=== PATIENT | female | born 1945 | race Caucasian/White ===

== ENCOUNTER 2017-02-17 16:47 | Emergency (ER) | payer MEDICARE, BC ==
[2017-02-17 16:54] VITALS: BP 141/77
--- NOTE | 2017-02-17 17:09 | UC ---
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 she lost footing fell back and hit her head on concrete does not believe she had a LOC but--she did have a strike that caused her to see stars and has had ringing in her ears gait steady, neck not painful - History Of Current Complaint Chief Complaint: UCHeadInjury Stated Complaint: HEAD INJURY Time Seen by Provider: 02/17/17 17:02 Hx Obtained From: Patient ?: No Mechanism Of Injury: fall Onset/Duration: Sudden Onset Severity Currently: Moderate Severity Initially: Moderate Pain Intensity: 5 Pain Scale Used: 0-10 Numeric Character: Throbbing Aggravating Factor(s): Nothing Alleviating Factor(s): Nothing Associated Signs And Symptoms: Positive: Negative - Allergies/Home Medications Allergies/Adverse Reactions: Allergies Allergy/AdvReac Type Severity Reaction Status Date / Time ENVIRONMENTAL Allergy STUUFY Uncoded 04/04/15 10:32 NOSE, BURNING EYES PMH/Surg Hx/FS Hx/Imm Hx Previously Healthy: No Endocrine History: Hypothyroidism Cardiovascular History: Hypertension - Surgical History Surgical History: Yes Surgery Procedure, Year, and Place: THYROIDECTOMY, , [facility] [place] 2008, [facility] [place] [facility] GREAT TOE SURGERIES, , [facility], [place] CAT[facility]ACTS, 03/2011, [facility] [place] Cholecystectomy 2012 - Family History Known Family History: Positive: None - Social History Occupation: Retired Lives: With Family Alcohol Use: Occasionally Substance Use Type: None Smoking Status (MU): Never Smoked Tobacco - Immunization History Most Recent Influenza Vaccination: Review of Systems Constitutional: Negative Skin: Negative Eyes: Negative ENT: Ear Ache - ringing Respiratory: Negative Cardiovascular: Negative Gastrointestinal: Negative Genitourinary: Negative Motor: Negative Neurovascular: Negative Musculoskeletal: Negative Neurological: Negative, Other - occipital hematoma Psychological: Negative Is Patient Immunocompromised?: No All Other Systems Reviewed And Are Negative: Yes Physical Exam Triage Information Reviewed: Yes Appearance: Well-Appearing, No Pain Distress, Thin Vital Signs: Initial Vital Signs Temp 97.7 F 02/17/17 16:49 Pulse 77 02/17/17 16:49 Resp 18 02/17/17 16:49 BP 141/77 02/17/17 16:49 Pulse Ox 98 02/17/17 16:49 Vital Signs Reviewed: Yes Eye Exam: Normal Eyes: Positive: Conjunctiva Clear, Other: - perrla ENT Exam: Normal ENT: Positive: Normal ENT inspection, Hearing grossly normal, Pharynx normal, TMs normal, Uvula midline. Negative: Nasal congestion, Tonsillar swelling, Tonsillar exudate, Trismus, Muffled voice, Hoarse voice, Sinus tenderness Dental Exam: Normal Neck exam: Normal Neck: Positive: Supple, Nontender, No Lymphadenopathy Respiratory Exam: Normal Respiratory: Positive: Chest non-tender, Lungs clear, Normal breath sounds, No respiratory distress, No accessory muscle use Cardiovascular Exam: Normal Cardiovascular: Positive: RRR, No Murmur, Pulses Normal, Brisk Capillary Refill Musculoskeletal Exam: Normal Musculoskeletal: Positive: Strength Intact, ROM Intact, No Edema Neurological Exam: Normal Neurological: Positive: Alert, Muscle Tone Normal Psychological Exam: Normal Skin Exam: Normal Head Injury Course/Dx - Course Course Of Treatment: transfer to [facility] [place] for higher level of care (no CT avaiable) - Differential Dx/Diagnosis Provider Diagnoses: Head injury,occiputal hematoma Discharge - Discharge Plan Condition: Stable Disposition: HOME Patient Education Materials: Head Injury (ED) Referrals: Michelle Norrsi NP [Primary Care Provider] - Additional Instructions: 1. Please report directly to the emergency department for a higher level of care than what is available at the urgent care
== END 2017-02-17 17:15 | disposition home or self-care (01) ==
LOC: UCEAST 16:47
DX: S09.90XA Unspecified injury of head, initial encounter (principal); S00.03XA Contusion of scalp, initial encounter; W18.39XA Other fall on same level, initial encounter; Y93.89 Activity, other specified; Y92.9 Unspecified place or not applicable; Y99.9 Unspecified external cause status
CPT/HCPCS: 99212; G0463

== ENCOUNTER 2017-02-17 17:29 | Emergency (ER) | payer MEDICARE, BC ==
--- NOTE | 2017-02-17 18:53 | RAD ---
INDICATION: Trauma to posterior occiput COMPARISON: None. TECHNIQUE: Contiguous axial sections of the brain were obtained from the skull base to the vertex without contrast. FINDINGS: The ventricles, cisterns and sulci are within normal limits. The gurrola-white matter differentiation is adequately maintained and there is no sulcal effacement. No significant focal abnormality or mass effect is present. There is no evidence for intracranial hemorrhage. There is induration measuring 3 mm in thickness immediately adjacent to the external occipital calvarium. No significant focal osseous abnormality is present. The visualized portion of the paranasal sinuses and mastoid air cells appear clear. IMPRESSION: There is a small subcutaneous hematoma overlying the midline occipital bone without underlying calvarial fracture or intracranial hemorrhage.
[2017-02-17 19:51] VITALS: BP 141/80
--- NOTE | 2017-02-17 21:37 | ED ---
Davis Dela Cruz SooYoung, scribed for Payam Ybarra MD on 02/17/17 at 1816 . 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 Pt was pulling down her garage door when she fell backwards, and hit her head on the concrete. Pt "saw stars" when she hit her head. Associated sx: neck pain, mild posterior AZUL. Denies: nausea. 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 Mechanism Of Injury: Fall From A Standing Position Onset/Duration: Still Present Onset of Pain: Immediate Severity Currently: Mild Severity Initially: Moderate Pain Intensity: 0 Pain Scale Used: 0-10 Numeric Associated Signs And Symptoms: Neck Pain, Headache - Allergies/Home Medications Allergies/Adverse Reactions: Allergies Allergy/AdvReac Type Severity Reaction Status Date / Time ENVIRONMENTAL Allergy STUUFY Uncoded 04/04/15 10:32 NOSE, BURNING EYES PMH/Surg Hx/FS Hx/Imm Hx Previously Healthy: No Endocrine/Hematology History: Reports: Hx Thyroid Disease Denies: Hx Diabetes Cardiovascular History: Reports: Hx Hypertension Denies: Hx Pacemaker/ICD, Other Cardiovascular Problems/Disorders Respiratory History: Denies: Hx Asthma, Hx Chronic Obstructive Pulmonary Disease (COPD), Other Respiratory Problems/Disorders GI History: Reports: Hx Gastroesophageal Reflux Disease - ON MEDS Denies: Hx Ulcer History: Denies: Hx Renal Disease, Other Problems/Disorders Musculoskeletal History: Reports: 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 Denies: Other Musculoskeletal History Sensory History: Reports: Hx Cataracts - REMOVED, Hx Contacts or Glasses - GLASSES Denies: Hx Hearing Aid Opthamlomology History: Reports: Hx Cataracts - REMOVED, Hx Contacts or Glasses - GLASSES Neurological History: Denies: Other Neuro Impairments/Disorders Psychiatric History: Denies: Hx Panic Disorder - Cancer History Hx Chemotherapy: No Hx Radiation Therapy: No - Surgical History Surgery Procedure, Year, and Place: THYROIDECTOMY, , [facility] [place], [facility] [place], , [facility], [place] [facility], 03/2011, [facility] [place] 2012 Hx Anesthesia Reactions: No Infectious Disease History: No Infectious Disease History: Denies: Hx Hepatitis, Hx Human Immunodeficiency Virus (HIV), History Other Infectious Disease, Traveled Outside the [place] in Last 30 Days - Family History Known Family History: Positive: Diabetes Negative: Cardiac Disease, Hypertension - Social History Occupation: Retired Lives: With Family Alcohol Use: Occasionally Hx Substance Use: No Substance Use Type: Reports: None Hx Tobacco Use: No Smoking Status (MU): Never Smoked Tobacco Review of Systems Negative: Nausea Positive: Other - pos: neck pain Positive: Headache All Other Systems Reviewed And Are Negative: Yes Physical Exam Vital Signs On Initial Exam: Initial Vitals Temp Pulse Resp BP Pulse Ox 97.3 F 72 17 158/77 99 02/17/17 17:29 02/17/17 17:29 02/17/17 17:29 02/17/17 17:29 02/17/17 17:29 - [place] Coma Scale Coma Scale Total: 15 Diagnostics - Vital Signs Vital Signs Temp Pulse Resp BP Pulse Ox 02/17/17 17:29 97.3 F 72 17 158/77 99 - Laboratory Lab Statement: Any lab studies that have been ordered have been reviewed, and results considered in the medical decision making process. - CT BRAIN CT CT Interpretation: Positive (See Comments) - IMPRESSION: There is a small subcutaneous hematoma overlying the midline occipital bone without underlying calvarial fracture or intracranial hemorrhage. ED physician has reviewed this radiology report and agrees. CT Interpretation Completed By: Radiologist Head Injury Course/Dx Course Of Treatment: Ms. Falcon was minimally symptomatic after a head injury but is no ASA and over [address] was obtained and negative. - Diagnoses Provider Diagnoses: Head injury Discharge - Discharge Plan Condition: Stable Disposition: HOME Patient Education Materials: Head Injury (ED) Referrals: Michelle Norris NP [Primary Care Provider] - Additional Instructions: Please return to ED if you experience new or worsening symptoms. The documentation as recorded by the Davis jon SooYoung accurately reflects the service I personally performed and the decisions made by , Payam Ybarra MD.
== END 2017-02-17 19:51 | disposition home or self-care (01) ==
LOC: ED 17:29
DX: S09.90XA Unspecified injury of head, initial encounter (principal); K21.9 Gastro-esophageal reflux disease without esophagitis; W19.XXXA Unspecified fall, initial encounter; Y93.89 Activity, other specified; Y92.9 Unspecified place or not applicable; I10 Essential (primary) hypertension
CPT/HCPCS: 70450; 99282

== ENCOUNTER 2017-03-15 17:52 | Emergency (ER) | payer MEDICARE, BC ==
--- NOTE | 2017-03-15 18:05 | UC ---
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 ) About 5 PM felt a little funny Went to kitchen for water had some trouble ambulating slumped again refrigerator door and fell to floor with LOC awoke on floor crawled back to living room an pulled herself into chair was profusely diaphoretic no CP,SOB, Palpitations now much improved mild AZUL still feels dizzy if she tries to stand - History Of Current Complaint Stated Complaint: FAINTED Time Seen by Provider: 03/15/17 17:58 Hx Obtained From: Patient Onset/Duration: Sudden Onset Activity At Onset: At Rest Timing: Constant Frequency: Episodes x___ - 1, Episodes Lasting ____ (in Mins/Days/Weeks/Years) - unknown Context: Unwitnessed Associated Head Trauma: No Pain Intensity: 2 Pain Scale Used: 0-10 Numeric Aggravating Factor(s): Position Change Alleviating Factor(s): Nothing, Other - supine Associated Signs And Symptoms: Positive: Diaphoresis, Head Trauma (Remote) - about 3 week ago - Allergies/Home Medications Allergies/Adverse Reactions: Allergies Allergy/AdvReac Type Severity Reaction Status Date / Time ENVIRONMENTAL Allergy STUUFY Uncoded 03/15/17 18:06 NOSE, BURNING EYES PMH/Surg Hx/FS Hx/Imm Hx Previously Healthy: Yes Cardiovascular History: Hypertension - Surgical History Surgical History: Yes Surgery Procedure, Year, and Place: THYROIDECTOMY, , [facility], [place] 2008, [facility] [place] [facility] GREAT TOE SURGERIES, , [facility], [facility] CAT[facility]ACT[facility], 03/2011, [facility] [place] Cholecystectomy 2012 - Family History Known Family History: Positive: None, Diabetes Negative: Cardiac Disease, Hypertension - Social History Alcohol Use: Occasionally Substance Use Type: None Smoking Status (MU): Never Smoked Tobacco - Immunization History Most Recent Influenza Vaccination: Review of Systems Constitutional: Negative Skin: Negative Eyes: Negative ENT: Negative Respiratory: Negative Cardiovascular: Negative Gastrointestinal: Negative Genitourinary: Negative Motor: Negative Neurovascular: Negative Musculoskeletal: Negative Neurological: Weakness Psychological: Negative Is Patient Immunocompromised?: No All Other Systems Reviewed And Are Negative: Yes Physical Exam Triage Information Reviewed: Yes Appearance: Well-Appearing, No Pain Distress, Well-Nourished Vital Signs Reviewed: Yes Eyes: Positive: Conjunctiva Clear ENT: Positive: Hearing grossly normal. Negative: Nasal congestion, Nasal drainage, Trismus, Muffled voice, Hoarse voice Neck: Positive: Nontender, Other: - no bruits Respiratory: Positive: Lungs clear, Normal breath sounds, No respiratory distress, No accessory muscle use Cardiovascular: Positive: RRR, No Murmur Abdomen Description: Positive: No Organomegaly, Soft, Bruit Musculoskeletal: Positive: ROM Intact, No Edema Neurological: Positive: Alert, Muscle Tone Normal Psychological Exam: Normal Skin Exam: Normal Diagnostics - EKG Cardiac Rate: NL Cardiac Rhythm: Sinus: Normal Ectopy: None ST Segment: Normal Syncope Course/Dx - Course Course Of Treatment: d/w Sima Tam. to [facility] ED via EMS - Differential Dx/Diagnosis Provider Diagnoses: syncopal episode Discharge - Discharge Plan Condition: Stable Disposition: [facility] Referrals: Michelle Norris NP [Primary Care Provider] -
[2017-03-15 18:06] VITALS: BP 120/68
== END 2017-03-15 19:02 | disposition short-term general hospital (02) ==
LOC: UCEAST 17:52
DX: R55 Syncope and collapse (principal); I10 Essential (primary) hypertension
CPT/HCPCS: 93005; 99213; G0463

== ENCOUNTER 2017-03-15 19:18 | Inpatient (IN) | payer MEDICARE, BC ==
--- NOTE | 2017-03-15 20:25 | RAD ---
HISTORY: Syncope COMPARISONS: None VIEWS: 1: frontal portable view of the chest at 8:11 PM FINDINGS: LINES AND TUBES: None. CARDIOMEDIASTINAL SILHOUETTE: The cardiomediastinal silhouette is normal for portable technique. PLEURA: The costophrenic angles are sharp. No pleural abnormalities are noted. LUNG PARENCHYMA: The lungs are clear. ABDOMEN: The upper abdomen is clear. There is no subphrenic gas. BONES AND SOFT TISSUES: No bone or soft tissue abnormalities are noted. IMPRESSION: NO ACTIVE CARDIOPULMONARY DISEASE.
[2017-03-15 20:32] LABS: Hematocrit 29 % (35-47); Hemoglobin 9.7 g/dl (12.0-16.0); Mean Corpuscular HGB Conc 34 g/dl (31-36); Mean Corpuscular Hemoglobin 33 pg (27-31); Mean Corpuscular Volume 97 fL (80-97); Mean Platelet Volume 10 um3 (7.4-10.4); Red Blood Count 2.95 10^6/ul (4.0-5.4); Red Cell Distribution Width 14 % (10.5-15); White Blood Count 7.7 10^3/ul (3.5-10.8)
[2017-03-15 20:48] LABS: ALT 15 U/L (7-52); AST 23 U/L (13-39); Albumin 3.7 g/dL (3.2-5.2); Alkaline Phosphatase 29 U/L (34-104); Anion Gap 4 mmol/L (2-11); BUN/Creatinine Ratio 80.5 (8-20); Blood Urea Nitrogen 62 mg/dL (6-24); CO2 Carbon Dioxide 27 mmol/L (22-32); Calcium 8.4 mg/dL (8.6-10.3); Chloride 103 mmol/L (101-111); EGFR African American 94.8 (>60); EGFR Non-African American 73.7 (>60); Globulin 2.1 g/dL (2-4); Glucose 102 mg/dL (70-100); Potassium 3.6 mmol/L (3.5-5.0); Sodium 134 mmol/L (133-145); Total Protein 5.8 g/dL (6.4-8.9)
[2017-03-15 20:49] LABS: Troponin I 0.01 ng/mL (<0.04)
--- NOTE | 2017-03-15 21:04 | RAD ---
HISTORY: Syncope COMPARISONS: February 17, 2017 TECHNIQUE: Multiple contiguous axial CT scans were obtained of the head without intravenous contrast. FINDINGS: HEMORRHAGE/INFARCT: There is no hemorrhage or acute infarct. MASSES/SHIFT: There is no mass or shift. EXTRA-AXIAL SPACES: There are no extra-axial fluid collections. SULCI AND VENTRICLES: The sulci and ventricles are normal in size and position for the patient's stated age. CEREBRUM: There are no focal parenchymal abnormalities. BRAINSTEM: There are no focal parenchymal abnormalities. CEREBELLUM: There are no focal parenchymal abnormalities. VESSELS: The vessels are grossly normal. PARANASAL SINUSES: The paranasal sinuses are clear. ORBITS: The orbits are unremarkable. BONES AND SOFT TISSUE: No bone or soft tissue abnormalities are noted. OTHER: None IMPRESSION: NO ACUTE INTRACRANIAL PATHOLOGY.
[2017-03-15] MEDS ORDERED: NS 0.9% 1000 ML* 1,000 ML IV ONE (21:09)
[2017-03-15] MEDS ORDERED: Al Hydrox/Mg Hydrox/Simet LIQ* 30 ML UDC PO PRN (21:21)
[2017-03-15] MEDS ORDERED: Acetaminophen TAB* 325 MG PO PRN (21:21)
--- NOTE | 2017-03-15 21:34 | ED ---
Alvarez Dela Cruz Stephanie, scribed for LisaneeruPritesh on 03/15/17 at 2005 . Syncope/Near Syncope - HPI Summary HPI Summary: The pt is a 71 y/o F presenting to the ED with c/o an episode of syncope that occurred earlier today. The pt reports sitting at her computer when she began to feel funny. She proceeded to get water and then remembers waking up on the floor. She does not recall how long she was unconscious for. Pt denies CP and abd pain. The patients reports that she was unsteady upon arrival to prior to coming to the ED. - History Of Current Complaint Chief Complaint: EDSyncope Time Seen by Provider: 03/15/17 19:48 Hx Obtained From: Patient, Family/Recruitment Internship - Onset/Duration: Sudden Onset, Resolved Timing: Frequency Of Episodes - 1 Context: Unwitnessed, Loss Of Consciousness Associated Signs And Symptoms: Other - Negative: CP and abd pain - Allergies/Home Medications Allergies/Adverse Reactions: Allergies Allergy/AdvReac Type Severity Reaction Status Date / Time ENVIRONMENTAL Allergy STUUFY Uncoded 03/15/17 18:06 NOSE, BURNING EYES PMH/Surg Hx/FS Hx/Imm Hx Previously Healthy: No Endocrine/Hematology History: Reports: Hx Thyroid Disease Denies: Hx Diabetes Cardiovascular History: Reports: Hx Hypertension - "marginal" Denies: Hx Pacemaker/ICD, Other Cardiovascular Problems/Disorders Respiratory History: Denies: Hx Asthma, Hx Chronic Obstructive Pulmonary Disease (COPD), Other Respiratory Problems/Disorders GI History: Reports: Hx Gastroesophageal Reflux Disease - ON MEDS Denies: Hx Ulcer History: Denies: Hx Renal Disease, Other Problems/Disorders Musculoskeletal History: Reports: 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 Denies: Other Musculoskeletal History Sensory History: Reports: Hx Cataracts - REMOVED, Hx Contacts or Glasses - GLASSES Denies: Hx Hearing Aid Opthamlomology History: Reports: Hx Cataracts - REMOVED, Hx Contacts or Glasses - GLASSES Neurological History: Denies: Other Neuro Impairments/Disorders Psychiatric History: Denies: Hx Panic Disorder - Cancer History Hx Chemotherapy: No Hx Radiation Therapy: No - Surgical History Surgery Procedure, Year, and Place: TH[place]RO[place]OMY, , [facility] [place], [facility] [place], , [facility] [facility], 03[place], [facility] [place] Hx Anesthesia Reactions: No Infectious Disease History: No Infectious Disease History: Denies: Hx Hepatitis, Hx Human Immunodeficiency Virus (HIV), History Other Infectious Disease, Traveled Outside the [place] in Last 30 Days - Family History Known Family History: Positive: Diabetes Negative: Cardiac Disease, Hypertension - Social History Lives: With Family Alcohol Use: Occasionally Alcohol Amount: 1 drink per night Hx Substance Use: No Substance Use Type: Reports: None Hx Tobacco Use: No Smoking Status (MU): Never Smoked Tobacco Review of Systems Negative: Fever Negative: Chest Pain Negative: Abdominal Pain All Other Systems Reviewed And Are Negative: Yes Physical Exam - Summary Physical Exam Summary: Appearance: Well appearing, no pain distress Skin: warm, dry, reflects adequate perfusion Head/face: normal Eyes: EOMI, IVANA ENT: normal Neck: supple, non-tender Respiratory: CTA, breath sounds present Cardiovascular: RRR, pulses symmetrical Abdomen: non-tender, soft Bowel: present Musculoskeletal: normal, strength/ROM intact Neuro: normal, sensory motor intact, A&Ox3 Triage Information Reviewed: Yes Vital Signs On Initial Exam: Initial Vitals Temp Pulse Resp BP Pulse Ox 98.5 F 88 16 109/62 98 03/15/17 19:31 03/15/17 19:31 03/15/17 19:31 03/15/17 19:31 03/15/17 19:31 Vital Signs Reviewed: Yes Diagnostics - Vital Signs Vital Signs Temp Pulse Resp BP Pulse Ox 03/15/17 19:31 98.5 F 88 16 109/62 98 - Laboratory Lab Results: Lab Results 03/15/17 03/15/17 03/15/17 Range/Units 20:25 20:25 20:25 WBC 7.7 (3.5-10.8) 10^3/ul RBC 2.95 L (4.0-5.4) 10^6/ul Hgb 9.7 L (12.0-16.0) g/dl Hct 29 L (35-47) % MCV 97 (80-97) fL MCH 33 H (27-31) pg MCHC 34 (31-36) g/dl RDW 14 (10.5-15) % Plt Count 153 (150-450) 10^3/ul MPV 10 (7.4-10.4) um3 Neut % (Auto) 78.8 (38-83) % Lymph % (Auto) 14.3 L (25-47) % [place] % (Auto) 5.5 (1-9) % Eos % (Auto) 0.9 (0-6) % Baso % (Auto) 0.5 (0-2) % Absolute Neuts (auto) 6.1 (1.5-7.7) 10^3/ul Absolute Lymphs (auto) 1.1 (1.0-4.8) 10^3/ul Absolute Monos (auto) 0.4 (0-0.8) 10^3/ul Absolute Eos (auto) 0.1 (0-0.6) 10^3/ul Absolute Basos (auto) 0 (0-0.2) 10^3/ul Absolute Nucleated RBC 0 10^3/ul Nucleated RBC % 0 INR (Anticoag Therapy) 0.94 (0.77-1.02) APTT 27.2 (26.0-36.3) seconds Sodium 134 (133-145) mmol/L Potassium 3.6 (3.5-5.0) mmol/L Chloride 103 (101-111) mmol/L Carbon Dioxide 27 (22-32) mmol/L Anion Gap 4 (2-11) mmol/L BUN 62 H (6-24) mg/dL Creatinine 0.77 (0.51-0.95) mg/dL Est GFR ( Amer) 94.8 (>60) Est GFR (Non-Af Amer) 73.7 (>60) BUN/Creatinine Ratio 80.5 H (8-20) Glucose 102 H (70-100) mg/dL Calcium 8.4 L (8.6-10.3) mg/dL Iron Pending TIBC Pending % Saturation Pending Unsat Iron Binding Pending Ferritin Pending Total Bilirubin 0.50 (0.2-1.0) mg/dL AST 23 (13-39) U/L ALT 15 (7-52) U/L Alkaline Phosphatase 29 L (34-104) U/L Troponin I 0.01 (<0.04) ng/mL Total Protein 5.8 L (6.4-8.9) g/dL Albumin 3.7 (3.2-5.2) g/dL Globulin 2.1 (2-4) g/dL Albumin/Globulin Ratio 1.8 (1-3) Vitamin B12 Pending Folate Pending Result Diagrams: 03/15/17 20:25 03/15/17 20:25 Lab Statement: Any lab studies that have been ordered have been reviewed, and results considered in the medical decision making process. - Radiology CXR Xray Interpretation: No Acute Changes Radiology Interpretation Completed By: Radiologist - No active cardiopulmonary disease. - CT CT BRAIN CT Interpretation: No Acute Changes CT Interpretation Completed By: Radiologist - NO ACUTE INTRACRANIAL PATHOLOGY. - EKG 20:11 EKG Rhythm: Sinus Rhythm EKG Interpretation: ST changes in inferior leads Course/Dx Course Of Treatment: The pt is a 71 y/o F presenting to the ED with c/o an episode of syncope that occurred earlier today. Bloodwork/ UA obtained. CXR, Brain CT, and EKG obtained. The pt [place] be [place] [facility] hospitalist Dr. Kemp. - Diagnoses Provider Diagnoses: Syncope, Dehydration - Physician Notifications Instructed by Provider To: Admit As Inpatient Admit/Transition Orders Completed By ED Provider: Yes Discharge - Discharge Plan Condition: Fair Disposition: ADMITTED TO [facility] Referrals: Michelle Norris, HOOK LOADER [Primary Care Provider] - The documentation as recorded by the Alvarez jon Stephanie accurately reflects the service I personally performed and the decisions made by Familia meyers Emmanuel.
[2017-03-15 21:45] LABS: Iron 89 ug/dL (50-212); Total Iron Binding Capacity 228 mcg/dL (250-450); Transferrin 163 mg/dL (203-362)
[2017-03-15 22:07] LABS: Ferritin 130.6 ng/mL (11-307)
[2017-03-15 22:11] LABS: Folate > 20.00 ng/mL (>3.99)
[2017-03-15 22:12] LABS: Vitamin B12 526 pg/mL (180-914)
[2017-03-15] MEDS: NS 0.9% 1000 ML* 1,000 ML IV SCH (23:32)
[2017-03-15 23:47] LABS: Urine Bacteria Absent (Absent); Urine Bilirubin Negative (Negative); Urine Glucose Negative (Negative); Urine Nitrite Negative (Negative)
--- NOTE | 2017-03-16 01:10 | HP ---
CC: Michelle Norris NP * HISTORY AND PHYSICAL: DATE OF ADMISSION: 03/15/17. PRIMARY CARE PROVIDER: Michelle Norris NP. ATTENDING PHYSICIAN: Peyton Fisher MD * (dictated by Pamela Lacey NP) CHIEF COMPLAINT: Syncopal episode. HISTORY OF PRESENT ILLNESS: Ms. Falcon is a 71-year-old female with past medical history significant for hypertension, severe osteoarthritis, hypothyroidism, rheumatoid arthritis, who presented initially to [facility] after passing out at home. Patient states that around 4:45 this afternoon she was sitting working at her computer. She was not feeling well and decided she needed some water. She got up from her chair and went to the sink. She was not getting cold water fast enough, so she went to the fridge. She reports feeling lightheaded when she had first gotten up from her chair. The next thing she knew she was waking up on the floor of her kitchen and noted that she was diaphoretic. She denied any nausea, vomiting, visual issues. Patient called her , who took her to urgent care for further evaluation. She reports while walking into urgent care she was feeling "wobbly like she was drunk and her knees were wobbly". Patient reports feeling tired. She reports falling and hitting her head on concrete approximately 3 weeks ago, at which time she was seen in the emergency room and had a negative workup and discharged. He reports mild intermittent headaches since that episode, but no problems with her vision. She denies any one-sided weakness, trouble with speaking. The patient was sent from [facility] to the emergency room for further evaluation. While in the emergency room, the patient had labs. She was noted to be anemic with a hemoglobin of 9.7, and hematocrit of 29. She appeared to be dehydrated based upon her labs, although she reports eating and drinking are normal. She had orthostatic vital signs checked and was noted to be mildly orthostatic. She had an EKG without significant findings and no signs of ischemia. She had a chest x- ray with no acute findings. She had a troponin of 0.01. The hospitalists were asked to evaluate the patient for admission. PAST MEDICAL HISTORY: Hypertension, osteoarthritis, rheumatoid arthritis, hypothyroidism, urinary incontinence, GERD. PAST SURGICAL HISTORY: 1. Status post subtotal thyroidectomy. 2. Status post bilateral varicose vein surgery. 3. Status post bilateral reconstruction of her feet. 4. Status post bilateral cataract extractions with lens implants. 5. Status post cholecystectomy. HOME MEDICATIONS: Include: 1. [place]-3 fatty acids 1000 mg oral daily. 2. Meloxicam 15 mg oral daily. 3. Levothyroxine 100 mcg oral daily. 4. Plaquenil 400 mg oral daily. 5. Hydrochlorothiazide 25 mg oral daily. 6. Garlic one capsule oral daily. 7. Restasis 0.05% ophthalmic one drop to both eyes twice daily. 8. Baby aspirin 81 mg oral daily. 9. Detrol LA 4 mg oral daily. ALLERGIES: ENVIRONMENTAL. FAMILY HISTORY: The patient's mother passed at age 72 with a history of hypertension and dementia. The patient's father passed at age 79 with a history of COPD, VA, and metastatic colon cancer. She denies any family history of diabetes mellitus. SOCIAL HISTORY: The patient denies tobacco or recreational drug use. She drinks one [place] daily. Her , Jam Falcon will be her surrogate decision maker in the event she is unable to make decisions for herself. REVIEW OF SYSTEMS: I performed a 14-point review of systems. All the pertinent positives and negatives are mentioned in the history of present illness. The patient denies any signs of bleeding such as bloody nose, vaginal bleeding, rectal bleeding or hematuria. She states that she has had a partial colonoscopy in the past and never had an EGD. The remaining review of systems is negative. PHYSICAL EXAMINATION GENERAL APPEARANCE: The patient is alert, pleasant, and appears to be in no acute distress. VITAL SIGNS: Temperature 98.5, heart rate 88, respiratory rate 16, O2 sat 98% on room air, blood pressure 109/62. HEENT: Normocephalic, atraumatic. Pupils are equal and reactive to light. Extraocular movements are intact. NECK: Neck is supple. There is no lymphadenopathy noted. RESPIRATORY: There is no accessory muscle use. Lungs are clear to auscultation bilateral. CARDIOVASCULAR: Regular rate and rhythm. S1, S2 present. There are no murmurs, rubs, or gallops heard. ABDOMEN: Soft, nontender, and nondistended. There are bowel sounds present x4. EXTREMITIES: There is no lower extremity edema. DP and PT pulses are 2+ and symmetric. MUSCULOSKELETAL: There is no clubbing or cyanosis noted. The patient exhibits good strength in all extremities. NEUROLOGIC: The patient is alert and oriented x4. Cranial nerves II through XII are grossly intact. The patient has equal dorsi and plantarflex bilaterally. She is able to pick both legs off the bed. She is able to perform heel ankle to knee bilateral without difficulty. She is able to perform [id number] bilaterally without difficulty. Her smile is symmetric. Her tongue is midline. She has no pronator drift. PSYCHOLOGICAL: The patient is calm and cooperative. SKIN: There are no rashes or abnormalities seen. DIAGNOSTIC STUDIES/LAB DATA: Sodium 134, potassium 3.6, chloride 103, CO2 27, BUN 62, creatinine 0.77, glucose 102. White blood cell count 7.7, hemoglobin 9.7, hematocrit 29, platelet count 153. Troponin 0.01. EKG from today shows a normal sinus rhythm with rate of 84. There are no acute signs of ischemia. There are no previous EKGs for comparison. Brain CT from today radiologist impression, no acute intracranial pathology. Chest x-ray from today. Radiologist impression, no active cardiopulmonary disease. IMPRESSION: Ms. Falcon is a 71-year-old female with a past medical history significant for hypertension, severe osteoarthritis, hypothyroidism, gastroesophageal reflux disease, urinary incontinence, and rheumatoid arthritis who presents to the emergency room after syncopal episode at home. She would be admitted as an observation. ASSESSMENT/PLAN: 1. Syncope. I suspect this is in the setting of dehydration. The patient is noted to be mildly orthostatic. We will give her IV fluids overnight. We will hold her hydrochlorothiazide. We will monitor her on telemetry. We will check one more troponin. We will recheck orthostatic vital signs in the morning. We will hold on any further workup and see how she does overnight. 2. Anemia. The patient's last hemoglobin in the system is 13.8 and 9.7 today. Her hematocrit is normally around 40 and today is 29. We will check iron studies on her. She denies any signs of bleeding. We will guaiac her stool. 3. Hypertension. Patient is currently with blood pressures in the 95 to low 100s. We will hold her hydrochlorothiazide. 4. Hypothyroidism. Patient's last TSH was 2.34 in May 2016. 5. Rheumatoid arthritis. Patient will be continued on her home Plaquenil. 6. Urinary incontinence. We will hold her Detrol due to it not being on formulary here. 7. Fluid, electrolytes, and nutrition. The patient can have a heart healthy diet. We will give her IV hydration overnight. 8. Code status. Full code. 9. DVT prophylaxis. The patient is at moderate risk. She will have SCDs. We will hold on any chemical DVT prophylaxis in the setting of a possible GI bleed. 10. Disposition. Observation. TIME SPENT: Time for this admission was approximately 60 minutes, greater than half of that was spent [id number] with the patient and her discussing medications, past medical history, and the events leading up to her arrival today, performing a physical examination. The case has been reviewed with the attending, Dr. Fisher, who agrees with the plan of care. Reviewed by DEVON MEDRANO 03/20/172007 [id number]/[facility] #: [id number] MTDD
[2017-03-16 06:30] LABS: Hematocrit 27 % (35-47); Hemoglobin 9.2 g/dl (12.0-16.0); Mean Corpuscular HGB Conc 34 g/dl (31-36); Mean Corpuscular Hemoglobin 33 pg (27-31); Mean Corpuscular Volume 97 fL (80-97); Mean Platelet Volume 10 um3 (7.4-10.4); Red Blood Count 2.79 10^6/ul (4.0-5.4); Red Cell Distribution Width 14 % (10.5-15); White Blood Count 4.9 10^3/ul (3.5-10.8)
[2017-03-16 06:51] LABS: BUN/Creatinine Ratio 82.3 (8-20); Calcium 8.4 mg/dL (8.6-10.3); EGFR African American 121.7 (>60); EGFR Non-African American 94.6 (>60); Potassium 3.7 mmol/L (3.5-5.0)
[2017-03-16] MEDS: Levothyroxine TAB* 100 MCG TAB PO SCH (06:56)
[2017-03-16] MEDS: NS 0.9% 1000 ML* 1,000 ML IV SCH ×2 (08:27→20:12)
[2017-03-16] MEDS ORDERED: CMCS: Meloxicam(NF) 7.5 MG TAB PO SCH (09:00)
[2017-03-16] MEDS: Hydroxychloroquine TAB* 200 MG PO SCH (09:18)
--- NOTE | 2017-03-16 10:26 | PN ---
Subjective Date of Service: 03/16/17 Interval History: Ms. Falcon states that she is feeling well. She continues to be orthostatic and hypotensive. She denies chest pain, SOB, nausea, or abdominal pain. She further denies blood in her stool or dark, tarry stool. She confirms colonoscopies in the past with Dr. Lovett though, "he was not able to get as far as he wanted" and she also had a virtual colonoscopy via CT. She doesn't know of any abnormal findings with that. Objective Active Medications: Acetaminophen (Tylenol Tab*) 650 mg PO Q4H PRN Al Hydrox/Mg Hydrox/Simethicone (Maalox Plus*) 30 ml PO Q6H PRN Hydroxychloroquine Sulfate (Plaquenil Tab*) 400 mg PO DAILY WITH MEAL NIRANJAN Sodium Chloride (Ns 0.9% 1000 Ml*) 1,000 mls @ 125 mls/hr IV PER RATE NIRANJAN Levothyroxine Sodium (Synthroid Tab*) 100 mcg PO DAILY@0600 NIRANJAN Meloxicam (Mobic(Nf)) 15 mg PO DAILY NIRANJAN Vital Signs: Temp Pulse Resp BP Pulse Ox 97.8 F 70 20 101/51 98 03/16/17 07:15 03/16/17 07:15 03/16/17 07:15 03/16/17 07:15 03/16/17 07:15 Oxygen Devices in Use Now: None Appearance: Female sitting up in bed in NAD Eyes: No Scleral Icterus Ears/Nose/Mouth/Throat: Mucous Membranes Moist Neck: Trachea Midline Respiratory: Symmetrical Chest Expansion and Respiratory Effort, Clear to Auscultation Cardiovascular: NL Sounds; No Murmurs; No JVD, No Edema Abdominal: NL Sounds; No Tenderness; No Distention Lymphatic: No Cervical Adenopathy Extremities: No Edema Skin: No Rash or Ulcers Neurological: Alert and Oriented x 3, NL Muscle Strength and Tone Nutrition: Taking PO's Result Diagrams: 03/16/17 06:14 03/16/17 06:14 Additional Lab and Data: Vital Signs: Temp Pulse Resp BP Pulse Ox 97.8 F 70 20 101/51 98 03/16/17 07:15 03/16/17 07:15 03/16/17 07:15 03/16/17 07:15 03/16/17 07:15 Assess/Plan/Problems-Billing Assessment: Ms. Falcon is a 71 yo female with a PMH of hypothyroidism and HTN who was admitted on 03/15/17 after a syncopal episode in the bathroom with concern for dehydration, anemia and orthostasis. - Patient Problems (1) Syncope Comment: - Remains orthostatic with low BP. - Suspect due to anemia and possible dehydration. - ? upper GI bleed given anemia, elevated BUN and long line teamster mobic use. (2) Anemia Comment: - Stable today. - Iron studies, vitamin B12, and folate normal. Guiac pending. - Concerned for upper GI bleed given NSAID use and elevated BUN. (3) Dehydration Comment: - BUN/Cr ratio 80. - Hold hctz. (4) Hypertension Comment: - SBP 70-100s. - Hold hctz. (5) Hypothyroidism Comment: - TSH 2.34 05/2016. - Continue levothyroxine. (6) Rheumatoid arthritis Comment: - Hold meloxicam given anemia and concern for upper GI bleed. (7) Urinary incontinence Comment: - Hold detrol as it is non-formulary. (8) Full code status (9) DVT prophylaxis Comment: - SCDs. Status and Disposition: OBV. Anticipate discharge to home when medically stable.
[2017-03-16] MEDS ORDERED: NS 0.9% 1000 ML* 1,000 ML IV ONE (11:21)
[2017-03-16] MEDS: Pantoprazole IV* 40 MG IV SCH ×2 (11:40→23:25)
[2017-03-17] MEDS: NS 0.9% 1000 ML* 1,000 ML IV SCH ×2 (03:46→11:41)
[2017-03-17 05:06] LABS: Hematocrit 20 % (35-47); Mean Corpuscular HGB Conc 35 g/dl (31-36); Mean Corpuscular Hemoglobin 34 pg (27-31); Mean Corpuscular Volume 98 fL (80-97); Mean Platelet Volume 10 um3 (7.4-10.4); Red Blood Count 2.07 10^6/ul (4.0-5.4); Red Cell Distribution Width 14 % (10.5-15); White Blood Count 3.7 10^3/ul (3.5-10.8)
[2017-03-17 05:33] LABS: BUN/Creatinine Ratio 59.3 (8-20); EGFR African American 128.9 (>60); EGFR Non-African American 100.2 (>60); Potassium 3.7 mmol/L (3.5-5.0)
[2017-03-17] MEDS: Levothyroxine TAB* 100 MCG TAB PO SCH (06:15)
[2017-03-17] MEDS: Hydroxychloroquine TAB* 200 MG PO SCH (07:49)
--- NOTE | 2017-03-17 09:47 | PN ---
Subjective Date of Service: 03/17/17 Interval History: Ms. Falcon continues to feel very well with no complaints. She denies chest pain, sob, nausea, or abdominal pain. She has not had a bowel movement since yesterday morning. She had not had any blood stools or dark black stools before admission. Objective Active Medications: Acetaminophen (Tylenol Tab*) 650 mg PO Q4H PRN Al Hydrox/Mg Hydrox/Simethicone (Maalox Plus*) 30 ml PO Q6H PRN Hydroxychloroquine Sulfate (Plaquenil Tab*) 400 mg PO DAILY WITH MEAL NIRANJAN Sodium Chloride (Ns 0.9% 1000 Ml*) 1,000 mls @ 125 mls/hr IV PER RATE NIRANJAN Levothyroxine Sodium (Synthroid Tab*) 100 mcg PO DAILY@0600 NIRANJAN Pantoprazole Sodium (Protonix Iv*) 40 mg IV Q12H NIRANJAN Vital Signs: Temp Pulse Resp BP Pulse Ox 99.0 F 74 16 103/51 99 03/17/17 07:31 03/17/17 07:31 03/17/17 07:55 03/17/17 07:31 03/17/17 07:31 Oxygen Devices in Use Now: None Appearance: Female lying in bed in NAD Eyes: No Scleral Icterus Ears/Nose/Mouth/Throat: NL Teeth, Lips, Gums, Mucous Membranes Moist Neck: Trachea Midline Respiratory: Symmetrical Chest Expansion and Respiratory Effort, Clear to Auscultation Cardiovascular: NL Sounds; No Murmurs; No JVD, No Edema Abdominal: NL Sounds; No Tenderness; No Distention Lymphatic: No Cervical Adenopathy Extremities: No Edema Skin: No Rash or Ulcers Neurological: Alert and Oriented x 3, NL Muscle Strength and Tone Nutrition: Taking PO's Result Diagrams: 03/17/17 04:25 03/17/17 04:25 Additional Lab and Data: . Assess/Plan/Problems-Billing Assessment: Ms. Falcon is a 71 yo female with a PMH of hypothyroidism and HTN who was admitted on 03/15/17 after a syncopal episode with concern for dehydration, anemia and orthostasis. - Patient Problems (1) Syncope Comment: - BP improved - Suspect upper GI bleed given anemia, elevated BUN and prison mobic use. (2) Anemia Comment: - Hgb 7 after IV fluids - Second sample stool occcult blood positive. Concerned for upper GI bleed given NSAID use and elevated BUN. - Plan for 2 units PRBC today. - Dr. Currie consulted with plan for EGD tomorrow, patient to be NPO after midnight. - Protonix gtt started. (3) Dehydration Comment: - BUN/Cr ratio 80. - Hold hctz. (4) Hypertension Comment: - SBP 110s. - Hold hctz. (5) Hypothyroidism Comment: - TSH 2.34 05/2016. - Continue levothyroxine. (6) Rheumatoid arthritis Comment: - Hold meloxicam given anemia and concern for upper GI bleed. - Tramadol available prn. (7) Urinary incontinence Comment: - Hold detrol as it is non-formulary. (8) Full code status (9) DVT prophylaxis Comment: - SCDs. Status and Disposition: Converted to inpatient with expected LOS > 2 days. Anticipate discharge to home when medically stable.
[2017-03-17] MEDS ORDERED: traMADol TAB* 50 MG PO PRN (09:58)
[2017-03-17] MEDS: Pantoprazole IV* 80 MG in NS 0.9% 250 ML* 250 ML IVPB SCH ×3 (11:11→22:45)
[2017-03-17] MEDS ORDERED: Ondansetron INJ* 2 MG/ML VIAL ONE (12:05)
[2017-03-17] MEDS ORDERED: NS 0.9% 1000 ML* 1,000 ML IV ONE (12:31)
[2017-03-17] MEDS ORDERED: Erythromycin TAB* 250 MG PO ONE (15:00)
[2017-03-17] MEDS ORDERED: Midazolam* 1 MG/ML 10 ML VIAL (10 MG) ONE (15:22)
[2017-03-17] MEDS ORDERED: Meperidine SYRINGE* 50 MG/ML ONE (15:22)
[2017-03-17 15:48] LABS: Hematocrit 25 % (35-47); Hemoglobin 8.6 g/dl (12.0-16.0)
[2017-03-17] MEDS ORDERED: EPINEPHrine SYR 0.1 MG/ML* (1:10,000) SYRINGE ONE (18:13)
[2017-03-17 19:32] LABS: Hematocrit 24 % (35-47); Hemoglobin 8.2 g/dl (12.0-16.0)
--- NOTE | 2017-03-17 21:13 | CONS ---
GASTROENTEROLOGY CONSULT: DATE: 03/17/17 CONSULTING PHYSICIANS: Jim Aguilera M.D.; Michelle Norris NP REASON FOR CONSULTATION: Hematemesis in a woman admitted 36 hours ago for syncope that was unexplained. 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 She used to take omeprazole to treat GERD, but weaned herself off it several years ago after she had her gallbladder removed. She takes a baby aspirin for general prophylaxis. In general, she does not have any stomach complaints or distress recently. She eats a general diet. She has not been told she is anemic. She took iron when she was , but not since. Two days ago sitting at a computer, she suddenly felt woozy and then fainted when she tried to get up to get some water. There was no vomiting and no abdominal pain or diarrhea. She came to the emergency room and was felt to be dehydrated. Her stool was heme-negative. Her BUN was up. No further syncope occurred in the hospital. This morning, she had a brown stool and re-testing it was heme-positive. About 2 hours later, she had massive medium to bright red hematemesis. Her last primary visit was about 3 weeks ago, and she was given 10 days of antibiotic that ended on 03/09/17. PAST MEDICAL HISTORY: 1. Rheumatoid arthritis - followed by Dr. Lr in [place], on meloxicam for 5 or 6 years. 2. Hypothyroidism - surgical, on replacement. 3. GERD - managed with diet currently. 4. Status post cholecystectomy in 2012. 5. Reconstructive hip surgeries. 6. Status post varicose vein surgeries. 7. Status post cataract extractions with implants. HOME MEDICATIONS: 1. Meloxicam 15. 2. Plaquenil 400. 3. Aspirin 81. 4. Hydrochlorothiazide 25. 5. Detrol LA 4. 6. Restasis. 7. [place] 3 fatty acids. ALLERGIES: None to drugs. FAMILY HISTORY: Her father had colon cancer. SOCIAL HISTORY: She is . Her is a CPA. There are no healthcare personnel in the family. 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 She is a nonsmoker. REVIEW OF SYSTEMS: She has no history of cardiac disease, prior syncope, valvular disease, palpitations, arrhythmias, hemoptysis, TB, hepatitis, jaundice , hematuria, or defecation problems. She has had an attempted colonoscopy and then virtual colonoscopy in the proximal colon was not seen. EXAM: She is a slightly pale, older woman, in no overt distress but 2 IVs and being transfused in the ICU. Pulse 84 and regular. HEENT exam shows no icterus. She has no adenopathy. Her lungs are clear. Heart sounds are normal. Abdomen is flat, no obvious surgical scars. Bowel sound present but relatively inactive. There is no tenderness. Rectal: Deferred. Extremities show no edema. Neurologic is nonfocal with normal cranial nerves and moving all 4 extremities. Gait: Not tested. LABS: Hemoglobin 7.0 this morning before the hematemesis. IMPRESSION: Upper GI bleeding in a woman on chronic NSAIDs and who had previously been on a PPI till she was motivated to taper off. Transfusion, a PPI drip, and a dose of erythromycin will be given prior to endoscopy in a few hours. [id number]/[facility] #: [id number] MTDD
[2017-03-18] MEDS ORDERED: NS 0.9% 500 ML* 500 ML IV ONE (02:00)
[2017-03-18] MEDS: Levothyroxine TAB* 100 MCG TAB PO SCH (05:22)
[2017-03-18 05:25] LABS: Hematocrit 25 % (35-47); Hemoglobin 8.7 g/dl (12.0-16.0)
[2017-03-18 05:41] LABS: BUN/Creatinine Ratio 36.4 (8-20); Calcium 7.9 mg/dL (8.6-10.3); EGFR African American 139.7 (>60); EGFR Non-African American 108.6 (>60); Potassium 3.8 mmol/L (3.5-5.0)
--- NOTE | 2017-03-18 06:03 | PRO ---
DATE: 03/17/17 - ROOM #ICU-07 REFERRING PRACTITIONERS: Jovita Yang NP; Michelle Norris NP * PROCEDURE: Upper gastrointestinal endoscopy and hemostasis via injection with 0.1 mg/mL epinephrine 2 cc, BICAP of ulcer base and resolution clip x1. INDICATION: This 71-year-old woman with rheumatoid arthritis, on meloxicam chronically for 5 years and also aspirin 81 mg, fainted and presented with hemoglobin of 9.7 and an elevated BUN. She was heme negative. Today, her hemoglobin was 7 and she had another stool that was heme positive and then had hematemesis, large amount, fresh blood and clots. She was transferred to the ICU and placed on a Protonix drip and a second IV started. Two units of blood were transfused and during the third unit, this procedure took place. Informed consent was obtained from the patient herself and a sequence of conversions and then endoscopy was described to her . ENDOSCOPIST: Dr. Currie. MEDICATION: Midazolam 13, meperidine 50, 2 mL 0.1 mg/mL epinephrine. FINDINGS: She is a slightly pale older woman in the ICU, pulse 85 and regular, blood pressure 110/70. Her abdomen is soft and nontender. EGD: Larynx - symmetric, limited views. Esophagus - easily entered, the mucosa is normal in the upper, mid, and lower esophagus with EG junction at 38. There is a small hiatal hernia. Stomach - a large amount of old blood in the fundus and after substantial suctioning, presence of red clots in the fundus was noted. The gastric body and antrum was splattered with coffee-ground material. No ulcer, no fresh bleeding was seen. Lavage was done to clear the area and just a little bit of punctate gastric erythema and a single supra-pyloric erosion was noted. The pylorus appeared normal. Duodenum - the bulb and second through fourth portions appear normal. Close inspection of the sweep just beyond the apex was possible. Following the duodenal inspection, attention was turned back to the fundus and lavage was used to out the clots and considerable evacuation was possible with the BioVac. A couple of clots were carried out through the mouth with reintubation. Then, an ulcer was seen in the very high fundus or cardia, fairly flat with a purple spot off to one side. There is no active bleeding at that moment. The location was at a 5 o'clock orientation just a couple of centimeters beyond the hiatus. It was best approached from a retroflex position and a sclerotherapy needle was used to inject 0.5 to 0.7 aliquots of diluted epinephrine into the base. Blanching occurred. A BICAP probe was then used at 20 rogers and cauterization applied with direct pressure, triangulated around the purple stigmata. Finally, a clip was used and did achieve good orientation approaching almost horizontal but then could be turned down into the base of the ulcer and deployed quite satisfactory orientation. There was a minimal amount of streaming ooze for about a minute and then that ceased. IMPRESSION: 1. Small hiatal hernia. 2. High gastric fundal ulcer - multiple modalities used. The third unit of transfusion is being completed. The Protonix drip certainly should be continued for another 48 hours, the patient observed in the hospital several additional days. [id number]/[facility] #: [id number] MTDD
[2017-03-18] MEDS: Pantoprazole IV* 80 MG in NS 0.9% 250 ML* 250 ML IVPB SCH ×3 (08:45→22:25)
[2017-03-18] MEDS: Hydroxychloroquine TAB* 200 MG PO SCH (09:32)
--- NOTE | 2017-03-18 11:26 | PN ---
Subjective Date of Service: 03/18/17 Interval History: Ms. Falcon reports feeling quite well this morning other than some arthritis in her ankles and feet. She denies nausea or abdominal pain. She has not had a bowel movement since yesterday. She denies chest pain or SOB. Objective Active Medications: Acetaminophen (Tylenol Tab*) 650 mg PO Q4H PRN Al Hydrox/Mg Hydrox/Simethicone (Maalox Plus*) 30 ml PO Q6H PRN Hydroxychloroquine Sulfate (Plaquenil Tab*) 400 mg PO DAILY WITH MEAL NIRANJAN Sodium Chloride (Ns 0.9% 1000 Ml*) 1,000 mls @ 125 mls/hr IV PER RATE NIRANJAN Pantoprazole Sodium 80 mg/ (Sodium Chloride) 250 mls @ 25 mls/hr IVPB Q10H NIRANJAN Levothyroxine Sodium (Synthroid Tab*) 100 mcg PO DAILY@0600 NIRANJAN Tramadol HCl (Ultram*) 100 mg PO Q6H PRN Vital Signs: Temp Pulse Resp BP Pulse Ox 98.8 F 78 14 95/57 98 03/18/17 00:21 03/18/17 09:00 03/18/17 09:00 03/18/17 09:00 03/18/17 09:00 Oxygen Devices in Use Now: None Appearance: Patient lying in bed in NAD Eyes: No Scleral Icterus Ears/Nose/Mouth/Throat: NL Teeth, Lips, Gums Neck: NL Appearance and Movements; NL JVP, Trachea Midline Respiratory: Symmetrical Chest Expansion and Respiratory Effort, Clear to Auscultation Cardiovascular: NL Sounds; No Murmurs; No JVD, No Edema Abdominal: NL Sounds; No Tenderness; No Distention Lymphatic: No Cervical Adenopathy Extremities: No Edema Skin: No Rash or Ulcers Neurological: Alert and Oriented x 3, NL Muscle Strength and Tone Nutrition: Taking PO's Result Diagrams: 03/18/17 05:20 03/18/17 05:20 Additional Lab and Data: . Assess/Plan/Problems-Billing Assessment: Ms. Falcon is a 71 yo female with a PMH of hypothyroidism and HTN who was admitted on 03/15/17 after a syncopal episode, now found to have upper GI bleed from gastric ulcer likely secondary to meloxicam use for RA. - Patient Problems (1) Upper GI bleed Comment: - With hematemesis 03/17/17. Now s/p 3 units PRBC with Hgb 8.7, hemodynamically stable but plan to check orthostatics now. - No s/p EGD with Dr. Currie with finding of high fundal gastric ulcer likely secondary to mobic use. - Continue protonix gtt x 48 hours. (2) Syncope Comment: - Secondary to anemia from upper GI bleed. (3) Anemia Comment: - Hgb 8.7 after 3 units PRBC. - Will transfuse if symptomatic with mobility. (4) Hypertension Comment: - SBP 110s. - Hold hctz. (5) Hypothyroidism Comment: - TSH 2.34 05/2016. - Continue levothyroxine. (6) Rheumatoid arthritis Comment: - Hold meloxicam given upper GI bleed. - Tramadol available prn, increased dose for persistent pain. (7) Urinary incontinence Comment: - Hold detrol as it is non-formulary. (8) Full code status (9) DVT prophylaxis Comment: - SCDs. Status and Disposition: Inpatient with expected LOS > 2 days. Transfer to medical floor. Anticipate discharge to home when medically stable.
[2017-03-18] MEDS ORDERED: NS 0.9% 1000 ML* 1,000 ML IV SCH (14:25)
[2017-03-18 15:21] LABS: Hematocrit 24 % (35-47); Hemoglobin 8.3 g/dl (12.0-16.0)
[2017-03-18] MEDS: traMADol TAB* 50 MG PO PRN (16:55)
[2017-03-19] MEDS: Pantoprazole IV* 80 MG in NS 0.9% 250 ML* 250 ML IVPB SCH ×2 (03:22→09:38)
[2017-03-19 05:11] LABS: Hematocrit 23 % (35-47); Hemoglobin 7.9 g/dl (12.0-16.0)
[2017-03-19] MEDS: traMADol TAB* 50 MG PO PRN (05:55)
[2017-03-19] MEDS: Levothyroxine TAB* 100 MCG TAB PO SCH (05:55)
[2017-03-19 08:09] VITALS: BP 105/59
[2017-03-19] MEDS: Hydroxychloroquine TAB* 200 MG PO SCH (09:40)
--- NOTE | 2017-03-20 05:29 | DS ---
CC: Michelle Norris NP; Dr. Currie * DISCHARGE SUMMARY: DATE OF ADMISSION: 03/15/17 DATE OF DISCHARGE: 03/19/17. PRIMARY CARE PROVIDER: Michelle Norris NP. SENIOR LOGISTICS MANAGER: Dr. Currie. DISCHARGING PROVIDER: JORY Shin. SUPERVISING PHYSICIAN: Dr. Desmond Valente * (DICTATED BY JORY SHIN) PRIMARY DISCHARGE DIAGNOSES: 1. Bleeding gastric ulcer. 2. Acute blood loss anemia secondary to bleeding ulcer status post transfusion of 3 units of packed red blood cells. 3. Syncope secondary to hypovolemia related to acute blood loss anemia. SECONDARY DISCHARGE DIAGNOSES: 1. Hypertension - the systolic pressure is in the low 100s during the hospitalization, holding hydrochlorothiazide. 2. Hypothyroidism. 3. Rheumatoid arthritis with recommendations to discontinue meloxicam. 4. Urinary incontinence. DISCHARGE MEDICATIONS: 1. Cyclosporin 0.05% ophthalmic solution one drop in both eyes twice daily. 2. Garlic one capsule p.o. daily. 3. Hydrochlorothiazide 25 mg p.o. daily - recommendations to hold at the time of discharge and discuss appropriate timing of resuming this medication with PCP. 4. Plaquenil 400 mg p.o. daily. 5. Levothyroxine 100 mcg p.o. daily. 6. [place] 3 fatty acids one capsule p.o. daily. 7. Omeprazole 20 mg p.o. twice daily. 8. Detrol 4 mg p.o. daily. 9. Ultram 100 mg p.o. q.6 hours as needed for pain. Medication changes: 1. Stop aspirin. 2. Stop meloxicam. 3. Hold hydrochlorothiazide. 4. Start b.i.d. PPI. HOSPITAL IMAGIN. Chest x-ray shows no acute process. 2. CT brain shows no acute pathology. 3. EGD shows a large gastric ulcer. HOSPITAL COURSE: This is a 71-year-old female with rheumatoid arthritis, hypertension, hypothyroidism, and GERD on chronic NSAID therapy who presented after a syncopal episode. The patient's initial CBC showed a hemoglobin of 9.7 g/dL. Last available for comparison was almost 2 years ago and was normal at 13.5 at that time. Her chemistries showed an elevated BUN to 62 with a normal creatinine. Initial troponin was negative. Initial stool testing was negative for blood. The repeat was positive and the patient acutely developed hematemesis. The patient's hemoglobin dropped as low as 7.0 g/dL. She was transfused a total of 3 units of packed red blood cells during her hospitalization. She underwent EGD with Dr. Currie, which demonstrated a large gastric ulcer, which was not actively bleeding, but there was significant amount of blood within the stomach that was evacuated. The base of the ulcer was injected with diluted epinephrine, and the patient was continued on a Protonix drip for 48 hours post procedure. At the time of discharge, orthostatic vital signs were repeated, which were negative, and the patient was asymptomatic with position changes and ambulation around her room. She had no complaints of abdominal pain, and she was able to tolerate a soft diet without nausea or vomiting. DISPOSITION AND FOLLOWUP PLAN: The patient is being discharged to home where she lives with her . Recommend oral b.i.d. PPI therapy, discontinuation of her NSAIDs and aspirin, and follow up with GI in 6 to 8 weeks for a repeat endoscopy to ensure ulcer healing. JORY SHIN [id number]/[facility] #: [id number] TRENT
== END 2017-03-19 11:58 | disposition home or self-care (01) | DRG 378 ==
LOC: ED 19:18 → MEDTELE 21:21 → OBSVTOIN 03-16 17:56 → ICU 03-17 12:50 → MEDTELE 03-18 13:29
PROVIDERS: ADMIT Internal Medicine; ATTEND Internal Medicine
PROC: 0W3P8ZZ Control Bleeding in Gastrointestinal Tract, Via Natural or Artificial Opening Endoscopic (ICD-10-PCS; principal; 2017-03-17)
PROC: 30233N1 Transfusion of Nonautologous Red Blood Cells into Peripheral Vein, Percutaneous Approach (ICD-10-PCS; 2017-03-17)
DX: K25.0 Acute gastric ulcer with hemorrhage (principal); D62 Acute posthemorrhagic anemia; M06.9 Rheumatoid arthritis, unspecified; E86.0 Dehydration; E86.1 Hypovolemia; I10 Essential (primary) hypertension; E03.9 Hypothyroidism, unspecified; R32 Unspecified urinary incontinence; K21.9 Gastro-esophageal reflux disease without esophagitis; M19.90 Unspecified osteoarthritis, unspecified site; I95.1 Orthostatic hypotension; Z79.82 Long term (current) use of aspirin; Z79.899 Other long term (current) drug therapy; Z91.048 Other nonmedicinal substance allergy status; Z82.49 Family history of ischemic heart disease and other diseases of the circulatory system; Z82.5 Family history of asthma and other chronic lower respiratory diseases; Z80.0 Family history of malignant neoplasm of digestive organs
CPT/HCPCS: 36415; 70450; 71010; 80048; 80053; 81003; 81015; 82272; 82607; 82728; 82746; 83540; 83550; 83935; 84300; 84484; 85014; 85018; 85025; 85610; 85730; 86850; 86900; 86901; 86922; 87086; 93005; 99156; 99157; 99213; A9270-GY; G0463; J0171; J2175; J2250; J2405; P9040

== ENCOUNTER 2017-05-13 17:47 | Emergency (ER) | payer MEDICARE, BC ==
[2017-05-13 18:07] VITALS: BP 134/88
--- NOTE | 2017-05-13 18:32 | UC ---
Laceration HPI - HPI Summary HPI Summary: 71 y/o female presents to the urgent care c/o laceration above left eyebrow s/ p falling while crossing the street abound 1645pm today. Pt reports she slipped on ice and uneven cement and fell forward, she put her arm to stop from hitting her head, but she landed on the left side and cut her forehead. She denies LOC. She got up w/ any difficulty. Bleeding stopped after pressure. Pain is 2/10 w/ touch. Pt is not in blood thinners. Last Tetanus shot was last year. Pt denies AZUL, dizziness, SOB, chest pain, abdominal pain, N/V/D. 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 Laceration Location: Temporal - above left eyebrow Mechanism Of Injury: Sharp Trauma Onset/Duration: Lasting Hours - 2hrs ago Severity: Mild Pain Intensity: 2 Pain Scale Used: 0-10 Numeric Aggravating Factors: Other: - touch Related History: Dominant Hand Right - Allergies/Home Medications Allergies/Adverse Reactions: Allergies Allergy/AdvReac Type Severity Reaction Status Date / Time MS No Known Drug Allergy Allergy See Comment Verified 05/13/17 18:08 [No Known Drug Allergy] ENVIRONMENTAL Allergy STUUFY Uncoded 05/13/17 18:08 NOSE, BURNING EYES PMH/Surg Hx/FS Hx/Imm Hx Previously Healthy: Yes Cardiovascular History: Hypertension GI/ History: Gastroesophageal Reflux, Ulcer - Surgical History Surgical History: Yes Surgery Procedure, Year, and Place: THYROIDECTOMY, , [facility] [place] [facility], [facility] [place] [facility] GREAT TOE SURGERIES, , [facility], 03/2011, [facility] [place] Cholecystectomy 2012 - Family History Known Family History: Positive: None, Hypertension, Diabetes Negative: Cardiac Disease - Social History Occupation: Employed Part-time Lives: With Family Alcohol Use: None Alcohol Amount: 1 drink per night Substance Use Type: None Smoking Status (MU): Never Smoked Tobacco - Immunization History Most Recent Influenza Vaccination: fall 2016 Most Recent Pneumonia Vaccination: 2015 Review of Systems Constitutional: Negative Skin: Other - Laceration above the left eyebrow s/p fall Eyes: Negative ENT: Negative Respiratory: Negative Cardiovascular: Negative Gastrointestinal: Negative Genitourinary: Negative Motor: Negative Neurovascular: Negative Musculoskeletal: Negative Neurological: Negative Psychological: Negative Is Patient Immunocompromised?: No All Other Systems Reviewed And Are Negative: Yes Physical Exam Triage Information Reviewed: Yes Vital Signs: Initial Vital Signs Temp 97.4 F 05/13/17 18:01 Pulse 76 05/13/17 18:01 Resp 16 05/13/17 18:01 BP 134/88 05/13/17 18:01 Pulse Ox 100 05/13/17 18:01 - Additional Comments Vital Signs Reviewed: Yes General: well developed, well nourished female sitting in the examining table w/ o any apparent distress Eye Exam: Normal Eyes: Positive: Conjunctiva Clear - PERRLA, EOMI, fundi grossly normal.- no periorbital ecchymosis, step-off, deformity, subq air, ENT: Positive: Normal ENT inspection, Hearing grossly normal, Pharynx normal, TMs normal Neck: Positive: Supple, Nontender, No Lymphadenopathy.No point tenderness, step- off, deformity to firm palpation of the cervical spine at the midline. No spasm or paraspinal muscle tenderness. FROM w/out limitation or pain. Respiratory: Positive: Chest non-tender, Lungs clear, Normal breath sounds, No respiratory distress Cardiovascular: Positive: RRR, No Murmur, Pulses Normal, Brisk Capillary Refill Abdomen Description: Positive: Nontender, No Organomegaly, Soft. Negative: CVA Tenderness (R), CVA Tenderness (L) Bowel Sounds: Positive: Present Musculoskeletal: Positive: Strength Intact, ROM Intact, No Edema Neurological: A&O x4, GCS 15, CN II-XII grossly intact. Motor and sensory exam nonfocal. Reflexes are symmetric. Speech is clear and gait steady. Psychological Exam: Normal Skin: Positive: superficial linear laceration above the left eyebrow about 2.0cm in size, mild tenderness palpation, w/ ecchymosis and bruising around observed. Scalp w/o any lesion or masses. Laceration Repair - Laceration Repair 1 Description: Linear Laceration Size After Repair: Length (cm) - 2.0cm Modified For Repair: No Type Injection: Local - EMLA, no good anesthesia obtained Anesthesia Used: 1.0% Lido - 2ml, good anesthesia obtained Cleansing Completed Via Routine Prep: Yes Irrigation With Pressure Irrigation Device: Yes Closure Material: Sutures - 5 sutures Closure Method: Single Layer Suture Of: Skin, SQ Suture Type: Nylon - 6.0 Laceration Course/Dx - Course/Dx Course Of Treatment: 71 y/o female presents to the urgent care c/o laceration above left eyebrow s/p falling while crossing the street abound 1645pm today. Pt reports she slipped on ice and uneven cement and fell forward, she put her arm to stop from hitting her head, but she landed on the left side and cut her forehead. She denies LOC. She got up w/ any difficulty. Bleeding stopped after pressure. Pain is 2/10 w/ touch. Pt is not in blood thinners. Last Tetanus shot was last year. Pt denies AZUL, dizziness, SOB, chest pain, abdominal pain, N/ V/D. Hx obtained. Pt w/ a superficial linear laceration above the left eyebow about 2.0cm in size on examination. Pt explained the improtance to do a Head CT to r/o any abnormality. But Pt declined and states she recently had a CT dose and she doen's want too much radiation exposure. LACERATION PROCEDURE NOTE: . Copious irrigation was done with saline by the nurse and the wound explored. There was no FB or deep structure injury noted. FROM of left forearm. procedure was explained and consent obtained, Timeout performed. The wound was anesthetized with EMLA, but not good anesthesia obtained, then 2ml of 1% lido used and good anesthesia obtained. Sterile drape and prep were done. There were 5 sutures with 6.0 nylon type of suture. The length of the wound after closure was 2.0cm. No debridement done. Wound was covered bacitracin with sterile non adherent dressing. The Pt tolerated the procedure well without adverse effects. Neurovascular intact. Pt advised to call PCP tomorrow to verify Tdap status. Pt advised to f/u suture removal in 4-5 days and if any signs of infection develop to immediately return to the urgent care of PCP for further management and treatment. Pt understood and agreed and left the clinic ambulating A&Ox3. - Differential Dx - Laceration/Wound Differental Diagnoses: Abrasion, Fracture, Laceration, Puncture Wound, Tendon Laceration Provider Diagnoses: 1- Laceration repair above the left eyebrow s/p fall - Physician Notification/Consults Discussed Patient Care With: Alfonso Solo - Dr Solo agreed w/ Pt's plan of care. Discharge - Discharge Plan Condition: Stable Disposition: HOME Prescriptions: Bacitracin OINTMENT* 1 applic TOPICAL TID #1 tube Patient Education Materials: Care For Your Stitches (DC), Laceration (ED) Referrals: Michelle Norris NP [Primary Care Provider] - 5 Days Additional Instructions: 1-Please apply topical antibiotic over the wound. Keep wound clean and dry. Keep applying ice 2- F/u suture removal in 4-5 days days w/ your PCP or here at the urgent care. 3-Take Tylenol PO q6-8hrs prn for pain or swelling. 4- If you develop fever or redness around your wound please return to the Urgent care for further . 5-If you developed dizziness, severe AZUL please go immediately to the ER for further treatment
[2017-05-13] MEDS ORDERED: Lidocaine 2.5%/Prilocain 2.5%* 5 GM TUBE TOPICAL ONE (18:46)
[2017-05-13] MEDS ORDERED: Lidocaine 1% MPF* 2 ML VIAL INJ ONE (18:48)
== END 2017-05-13 20:14 | disposition home or self-care (01) ==
LOC: UCEAST 17:47
DX: S01.81XA Laceration without foreign body of other part of head, initial encounter (principal); W00.0XXA Fall on same level due to ice and snow, initial encounter; Y93.01 Activity, walking, marching and hiking; Y92.410 Unspecified street and highway as the place of occurrence of the external cause; I10 Essential (primary) hypertension; K21.9 Gastro-esophageal reflux disease without esophagitis
CPT/HCPCS: 12011; 99212; A9270-GY; G0463

== ENCOUNTER 2017-05-19 08:40 | Emergency (ER) | payer MEDICARE, BC ==
[2017-05-19 08:57] VITALS: BP 122/81
--- NOTE | 2017-05-19 10:19 | UC ---
Skin Complaint HPI - HPI Summary HPI Summary: Patient presents s/p suturing of the left upper eyebrow 6 days ago. She states she had not had any drainage, but there continues to be some soft tissue swelling surrounding the eye, and of the upper eye lid this morning. She denies any headaches, blurred vision, nausea, or vomiting. She states the laceration appears well healed and is here to have the sutures removed. - History of Current Complaint Chief Complaint: UCLaceration Time Seen by Provider: 05/19/17 09:30 Stated Complaint: SUTURE REMOVAL EYE SWOLLEN Hx Obtained From: Patient Hx Last Menstrual Period: NA ?: No Onset/Duration: Sudden Onset, Lasting Days Skin Exposure Onset/Duration: Days Ago Onset Severity: Mild Current Severity: None Pain Intensity: 2 Pain Scale Used: 0-10 Numeric Location: Discrete - left upper eye brow Aggravating Factor(s): Nothing Alleviating Factor(s): Nothing Associated Signs & Symptoms: Positive: Negative - Allergy/Home Medications Allergies/Adverse Reactions: Allergies Allergy/AdvReac Type Severity Reaction Status Date / Time ENVIRONMENTAL Allergy STUUFY Uncoded 05/13/17 18:08 NOSE, BURNING EYES Review of Systems Constitutional: Negative Skin: Negative, Other - healed laceration above the left eyebrow. Eyes: Negative ENT: Negative Respiratory: Negative Cardiovascular: Negative Gastrointestinal: Negative Genitourinary: Negative Motor: Negative Neurovascular: Negative Musculoskeletal: Negative Neurological: Negative Psychological: Negative Is Patient Immunocompromised?: No All Other Systems Reviewed And Are Negative: Yes PMH/Surg Hx/FS Hx/Imm Hx Previously Healthy: Yes - Surgical History Surgical History: Yes Surgery Procedure, Year, and Place: THYROIDECTOMY, , [facility] [place] [facility], [facility] [place] [facility] GREAT TOE SURGERIES, , [facility], 03/2011, [facility] [place] Cholecystectomy 2012 - Family History Known Family History: Positive: None, Hypertension, Diabetes Negative: Cardiac Disease - Social History Occupation: Retired Lives: Alone Alcohol Use: None Alcohol Amount: 1 drink per night Substance Use Type: None Smoking Status (MU): Never Smoked Tobacco - Immunization History Most Recent Influenza Vaccination: fall 2016 Most Recent Pneumonia Vaccination: 2015 Physical Exam Triage Information Reviewed: Yes Appearance: Well-Appearing Vital Signs: Initial Vital Signs Temp 99.1 F 05/19/17 08:52 Pulse 72 05/19/17 08:52 Resp 16 05/19/17 08:52 BP 122/81 05/19/17 08:52 Pulse Ox 100 05/19/17 08:52 Eye Exam: Normal ENT Exam: Normal Neck exam: Normal Neck: Positive: 1 Respiratory Exam: Normal Cardiovascular Exam: Normal Abdominal Exam: Normal Musculoskeletal Exam: Normal Neurological Exam: Normal Psychological Exam: Normal Skin Exam: Other - well healed laceration above the left eybrow, mild surrounding erythma. five sutures removed witout incidence. Course/Dx - Course Course Of Treatment: Patient presents six days s/p laceration and sutures above the left eyebrow. The laceration was well healed, and five sutures were removed without incidence and the patient tolerated the procedure well. She continues to have soft tissue swelling surrounding the left eye, healing brusing. No evidence of tara-orbit cellulitisi. She is schuduled to see her opthamologist next week. - Differential Diagnoses - Skin Complaint Differential Diagnoses: Other - suture removal - Diagnoses Provider Diagnoses: suture removal Discharge - Discharge Plan Condition: Stable Disposition: HOME Patient Education Materials: Stitches Removal (ED) Referrals: Michelle Norris NP [Primary Care Provider] -
== END 2017-05-19 09:50 | disposition home or self-care (01) ==
LOC: UCEAST 08:40
DX: Z48.02 Encounter for removal of sutures (principal)
CPT/HCPCS: 99211; G0463

== ENCOUNTER 2019-01-03 13:01 | Emergency (ER) | payer MEDICARE, BC ==
--- OUTSIDE RECORDS SUMMARY | 2019-01-03 13:08 | XMS REPORT | Continuity of Care Document ---
:1945 External Reference #:[id number] Author Name Evonne Galvan M.D. (transmitted by agent of provider Rowan Montoya) Address [address], [place] [address] Care Team Providers Name Role Phone Susanna Chinchilla MD - Internal Care Team Information Technical Recruiter Medicine Anmol Oconnor MD - Otolaryngology Care Team Information Technical Recruiter Problems Active Problems Provider Date Essential hypertension Michelle Norris N.P. Onset: 05/17/2015 Hypothyroidism Francine Garcia M.D., FACP Onset: 02/28/2010 Note: 1983 s/p subtotal hypothyroidectomy Gastroesophageal reflux disease Francine Garcia M.D., FACP Onset: 02/28/2010 Rheumatoid arthritis Michelle Norris N.Charmaine. 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 Onset: of multiple sites Localized, primary osteoarthritis Liz Guaman M.D. Onset: 11/22/2017 Gastric ulcer Be Currie MD Onset: 02/11/2017 Note: high fundus after yrs of meloxicam Diverticular disease of colon Be Currie MD Onset: 09/22/2009 Note: Virtual colonoscopy 10/21/14 was a technical failure due to redundancy and fluid retention. Abnormal liver function Be Currie MD Onset: 05/31/2018 Note: on labs drawn in [place] in 2019 and rheum suggested reduced acetaminophen; [place] [facility] [place] twelve sets of LFTs since 03/05/11 have all been normal; ALTs all under 33 and since 2014 under 25; Social History Type Date Description Comments Sex Unknown ETOH Use Currently consumes 3 - 5 per week alcohol Tobacco Use Start: Unknown Patient has never smoked Smoking Status Reviewed: 12/24/18 Patient has never smoked Exercise Exercises sporadically mowing, has a horse Type/Frequency Allergies, Adverse Reactions, Alerts Active Allergies Reaction Severity Comments Date NKDA 08/02/2016 Seasonal 11/15/2015 Inactive Allergies NKDA 02/16/2010 Medications Active Medications SIG Qnty Indications Ordering Date Provider Nitrofurantoin 1 by mouth twice a 10caps N30.00 Evonne Macrocrystal day Prieto Galvan 9 100mg Capsules Suprep Bowel Prep Kit take according to 354ml [facility] the instructions MD Kush 9 17.5-3.13-1.6GM/177ML you received, the Solution afternoon before and morning of your procedure. [facility] Magnesium Citrate drink the entire 296ml [facility] bottle after MD Kush 9 1.745GM/30ML Solution dinner, two days before your procedure Omeprazole 2 by mouth every 180caps Anuradha Lorenzo, 20mg Capsules DR day [employer] [facility] 9 Probiotic 1 by mouth every 30caps [place] Capsules day Varn, N.P. 8 Biotin 1 tablet every day 14tabs [place] 5000mcg Tablets Varn, N.P. 8 Levothyroxine Sodium Take One Tablet 6 96tabs [place] 100mcg Days A Week, One Varn, N.P. 7 Tablets And One-Half Tablets On Saturday Tolterodine Tartrate ER Take 1 Capsule caps [place] 4mg Daily Varn, N.P. 0 Caps ER 24HR Hydrochlorothiazide Take 1 Tablet 90tabs [place] 25mg Daily Varn, N.P. 0 Tablets Plaquenil 2 Daily 60tabs Unknown 200mg Tablets 0 Multivitamin 1 po qd Unknown 0 Fish Oil 1 po qd Unknown 1200mg Capsules 0 Glucosamine Chondroitin 1 po qd Unknown 0 Tablets Calcium + D (600mg) 2 po daily Unknown Chewtabs 0 Fibercon take 2 tablets by Unknown 625mg Tablets mouth two times 0 daily or as directed Miralax 17 gm in 8 oz K21.9 Unknown [id number] Powder fluid daily 0 Medications Administered in Office Medication SIG Qnty Indications Ordering Provider Date Depomedrol 40MG Liz Guaman M.D. 10/29/2018 Injection Depomedrol 40MG Liz Guaman M.D. 10/29/2018 Injection Depomedrol 40MG Liz Guaman M.D. 07/25/2018 Injection Depomedrol 40MG Liz Guaman M.D. 07/25/2018 Injection Depomedrol 40MG Liz Guaman M.D. 04/21/2018 Injection Depomedrol 40MG Liz Guaman M.D. 04/21/2018 Injection Depomedrol 40MG Liz Guaman M.D. 11/22/2017 Injection Depomedrol 40MG Liz Guaman M.D. 11/22/2017 Injection Immunizations CPT Code Status Date Vaccine Lot # [id number] Given 12/19/2017 Influenza Virus Vaccine, Quadrivalent, Split, [id number] Preservative Free 09026 Given 12/28/2016 Influenza Virus Vaccine, Quadrivalent, Split, [id number] Preservative Free [id number] Given 01/06/2016 Flu Vaccine NOS 20055 Given 04/30/2014 Pneumococcal Conjugate Vaccine 13 Valent For [id number] Intramuscular Use 43088 Given 01/05/2014 Influenza Virus Vaccine, Quadrivalent, Split, [id number] Preservative Free 23658 Given 12/29/2012 Hepatitis B Vaccine Adult Dosage [id number] 08912 Given 12/29/2012 Flu Vaccine Split Virus Preservative Free For [id number] Indiv 3Yr Older 21710 Given 12/29/2012 Hepatitis A Vaccine Adult Dosage [id number] 28781 Given 07/29/2012 Hepatitis B Vaccine Adult Dosage [id number] 48376 Given 06/18/2012 Hepatitis B Vaccine Adult Dosage [id number] 01555 Given 06/18/2012 Tdap - Tetanus/Diptheria/Acellular Pertussis [id number] 35255 Given 06/18/2012 Hepatitis A Vaccine Adult Dosage [id number] Q2038 Given 12/28/2011 Fluzone Vaccine [id number] Q2035 Given 01/03/2011 Afluria Vaccine 22107 Given 02/16/2010 Pneumonia Vaccine 54233 Given 02/16/2010 Influenza Virus 3Yrs & Over 13111 Given 04/07/2009 Influenza Virus Vaccine, Pandemic Formulation 10433 Given 04/07/2009 Administration Swine Flu Shot 63539 Given 03/09/2009 Influenza Virus 3Yrs & Over 05584 Given 01/12/2008 Influenza Virus 3Yrs & Over 74458 Given 01/13/2007 Influenza Virus 3Yrs & Over 84016 Given 01/13/2007 Influenza Virus 3Yrs & Over 44004 Given 10/09/2006 Zoster (Zostavax) 35868 Given 04/12/2006 Influenza Virus 3Yrs & Over 19829 Given 04/12/2006 Influenza Virus 3Yrs & Over Vital Signs Date Vital Result Comment 12/24/2018 10:11am Height 69.5 inches 5'9.50" Weight 163.00 lb Heart Rate 73 /min BP Systolic Sitting 110 mmHg BP Diastolic Sitting 68 mmHg O2 % BldC Oximetry 100 % BMI (Body Mass Index) 23.7 kg/m2 11/27/2018 8:18am Height 69.5 inches 5'9.50" Weight 164.00 lb Heart Rate 70 /min BP Systolic 108 mmHg BP Diastolic 64 mmHg O2 % BldC Oximetry 100 % BMI (Body Mass Index) 23.9 kg/m2 Results Test Date Facility Test Result H/L Range Note CBC Auto 10/08/2018 [facility] White Blood 5.1 10^3/uL Normal 3.5-10.[address] [place] [address] [phone] Red Blood Count 3.95 10^6/uL Normal 3.70-4.87 Hemoglobin 13.1 g/dL Normal 12.0-16.0 Hematocrit 39 % Normal 35-47 Mean Corpuscular Volume 98 fL High 80-97 Mean Corpuscular Hemoglobin 33 pg High 27-31 Mean Corpuscular HGB Conc 34 g/dL Normal 31-36 Red Cell Distribution Width 13 % Normal 10-15 Platelet Count 237 10^3/uL Normal 150-450 Mean Platelet Volume 10.1 fL Normal 7.4-10.4 Abs Neutrophils 2.9 10^3/uL Normal 1.5-7.7 Abs Lymphocytes 1.6 10^3/uL Normal 1.0-4.8 Abs Monocytes 0.5 10^3/uL Normal 0-0.8 Abs Eosinophils 0.1 10^3/uL Normal 0-0.6 Abs Basophils 0.0 10^3/uL Normal 0-0.2 Abs Nucleated RBC 0.0 10^3/uL Granulocyte % 57.0 % Lymphocyte % 30.6 % Monocyte % 9.8 % Eosinophil % 2.0 % Basophil % 0.6 % Nucleated Red Blood Cells % 0.0 Comp Metabolic 10/08/2018 [facility] Sodium 138 mmol/L Normal 135-145 Panel [address] [place] [address] [phone] Potassium 3.3 mmol/L Low 3.5-5.0 Chloride 100 mmol/L Low 101-111 Co2 Carbon Dioxide 31 mmol/L Normal 22-32 Anion Gap 7 mmol/L Normal 2-11 Glucose 108 mg/dL High 70-100 Blood Urea Nitrogen 17 mg/dL Normal 6-24 Creatinine 0.97 mg/dL High 0.51-0.95 BUN/Creatinine Ratio 17.5 Normal 8-20 Calcium 9.8 mg/dL Normal 8.6-10.3 Total Protein 6.8 g/dL Normal 6.4-8.9 Albumin 4.4 g/dL Normal 3.2-5.2 Globulin 2.4 g/dL Normal 2-4 Albumin/Globulin Ratio 1.8 Normal 1-3 Total Bilirubin 1.00 mg/dL Normal 0.2-1.0 Alkaline Phosphatase 57 U/L Normal 34-104 Alt 18 U/L Normal 7-52 Ast 29 U/L Normal 13-39 Egfr Non- 56.3 >60 Egfr 68.1 >60 1 Laboratory test 10/08/2018 [facility] C Reactive 2.42 mg/L Normal <8.[address] [place] [address] [phone] Ferritin 91.6 ng/mL Normal 11-307 Iron & Iron Binding 10/08/2018 [facility] Iron 77 g/dL Normal 50-212 Capacity [address] [place] [address] [phone] Unsaturated Iron Binding < 271 g/dL Total Iron Binding Capacity 286 g/dL Normal 250-450 Transferrin 204 mg/dL Normal 203-362 % Iron Saturation 27 % Normal 15-55 Laboratory test finding 10/08/2018 [facility] LDH 204 U/L Normal 140-271 [address] [place] [address] [phone] Vitamin B12 > 1450 pg/mL High 180-914 2 Laboratory 07/24/2018 [facility] TSH (Thyroid 1.91 Normal 0.34 -5.[address] Stim Horm) mcIU/[place] [address] [phone] Comp Metabolic 07/24/2018 [facility] Sodium 141 mmol/L Normal 135-145 Panel [address] [place] [address] [phone] Potassium 3.7 mmol/L Normal 3.5-5.0 Chloride 99 mmol/L Low 101-111 Co2 Carbon Dioxide 31 mmol/L Normal 22-32 Anion Gap 11 mmol/L Normal 2-11 Glucose 84 mg/dL Normal 70-100 Blood Urea Nitrogen 15 mg/dL Normal 6-24 Calcium 10.0 mg/dL Normal 8.6-10.3 Total Protein 6.7 g/dL Normal 6.4-8.9 Albumin 4.6 g/dL Normal 3.2-5.2 Globulin 2.1 g/dL Normal 2-4 Albumin/Globulin Ratio 2.2 Normal 1-3 Total Bilirubin 1.00 mg/dL Normal 0.2-1.0 Alkaline Phosphatase 52 U/L Normal 34-104 Alt 19 U/L Normal 7-52 Ast 30 U/L Normal 13-39 Creatinine 0.73 mg/dL Normal 0.51-0.95 BUN/Creatinine Ratio 20.5 High 8-20 Egfr Non- 78.1 >60 Egfr 94.6 >60 3 Lipid Profile 07/24/2018 [facility] Cholesterol 203 mg/dL 4 (Trig/Chol/HDL) [address] [place] [address] [phone] Triglycerides 49 mg/dL 5 HDL Cholesterol 94.8 mg/dL 6 LDL Cholesterol 98 mg/dL 7 1 Because ethnic data is not always readily available, this report includes an eGFR for both -Americans and non- Americans. The National Kidney Disease Education Program (NKDEP) does not endorse the use of the MDRD equation for patients that are not between the ages of 18 and 70, are , have extremes of body size, muscle mass, or nutritional status, or are non- or non-. According to the National Kidney Foundation, irrespective of diagnosis, the stage of the disease is based on the level of kidney function: Stage Description GFR(mL/min/1.73 m(2)) 1 Kidney damage with normal or decreased GFR 90 2 Kidney damage with mild decrease in GFR 60-89 3 Moderate decrease in GFR 30-59 4 Severe decrease in GFR 15-29 5 Kidney failure <15 (or dialysis) 2 Normal Range 180 to 914 Indeterminate Range 145 to 180 Deficient Range <145 3 Because ethnic data is not always readily available, this report includes an eGFR for both -Americans and non- Americans. The National Kidney Disease Education Program (NKDEP) does not endorse the use of the MDRD equation for patients that are not between the ages of 18 and 70, are , have extremes of body size, muscle mass, or nutritional status, or are non- or non-. According to the National Kidney Foundation, irrespective of diagnosis, the stage of the disease is based on the level of kidney function: Stage Description GFR(mL/min/1.73 m(2)) 1 Kidney damage with normal or decreased GFR 90 2 Kidney damage with mild decrease in GFR 60-89 3 Moderate decrease in GFR 30-59 4 Severe decrease in GFR 15-29 5 Kidney failure <15 (or dialysis) 4 Desirable: <200 Borderline High: 200-239 High: >239 5 Desirable: <150 Borderline High: 150-199 High: 200-499 Very High: >500 6 Low: <40 Desirable: 40-60 High: >60 7 Desirable: <100 Near Optimal: 100-129 Borderline High: 130-159 High: 160-189 Very High: >189 Procedures Date Code Description Status 10/29/2018 Inject/Drain Joint/Bursa Major W/O US Completed 07/25/2018 Inject/Drain Joint/Bursa Major W/O US Completed 01/17/2018 [id number] Diabetic Foot Exam Completed 07/18/2017 [id number] Mammogram Completed 05/22/2017 [id number] Diabetic Retinal Eye Exam Completed 03/26/2017 [id number] Colonoscopy Completed 08/01/2016 [id number] Mammogram Completed 07/16/2016 [id number] Mammogram Completed 05/19/2015 [id number] Mammogram Completed 10/21/2014 [id number] Colonoscopy Completed 05/18/2014 [id number] Mammogram Completed 05/01/2013 [id number] Mammogram Completed 03/28/2012 [id number] Mammogram Completed 03/09/2011 [id number] Mammogram Completed 03/02/2010 [id number] Mammogram Completed 03/02/2010 [id number] Bone Mineral Density Test Completed 06/24/2009 [id number] Colonoscopy Completed 03/28/2000 [id number] Colonoscopy Completed Medical Devices Description No Information Available Encounters Type Date Location Provider Dx Diagnosis Office Visit 11/27/2018 [facility] Gastroenterology Be [place] K25.9 Gastric ulcer, 8:00a MD Kush unsp as acute or chronic, w/o hemor or perf K58.1 Irritable bowel syndrome with constipation K59.00 Constipation, unspecified Z80.0 Family history of malignant neoplasm of digestive organs R94.5 Abnormal results of liver function studies Office Visit 09/22/2018 [facility] Gastroenterology Be [place] D64.9 Anemia, 2:30p MD Kush unspecified M05.79 Rheu arthritis w rheu factor mult site w/o org/sys involv K25.9 Gastric ulcer, unsp as acute or chronic, w/o hemor or perf R94.5 Abnormal results of liver function studies Office Visit 07/01/2018 3:40p [facility] Internal Michelle Norris, H92.02 Otalgia , left Medicine - [facility] N.P. ear Assessments Date Code Description Provider 12/24/2018 N30.00 Acute cystitis without hematuria Evonne Galvan M.D. 11/27/2018 K25.9 Gastric ulcer Be Currie MD 11/27/2018 K58.1 Irritable bowel syndrome with constipation Be Currie MD 11/27/2018 K59.00 Constipation, unspecified Be Currie MD 11/27/2018 Z80.0 Family history of malignant neoplasm of Be Currie MD digestive organs 11/27/2018 R94.5 Abnormal results of liver function studies Be Currie MD 10/29/2018 M25.561 Pain in right knee Liz Deniz, M.D. 10/29/2018 M25.562 Pain in left knee Liz Deniz, M.D. 10/29/2018 M25.461 Effusion, right knee Liz Deniz, M.D. 10/29/2018 M25.462 Effusion, left knee Liz Deniz, M.D. 10/29/2018 M17.0 Bilateral primary osteoarthritis of knee Liz Deniz, M.D. 09/22/2018 D64.9 Anemia, unspecified Be Currie MD 09/22/2018 M05.79 Rheumatoid arthritis with rheumatoid factor Be Currie MD of multiple site 09/22/2018 K25.9 Gastric ulcer Be Currie MD 09/22/2018 R94.5 Abnormal results of liver function studies Be Currie MD 07/25/2018 M25.561 Pain in right knee Liz Deniz, M.D. 07/25/2018 M25.562 Pain in left knee Liz Deniz, M.D. 07/25/2018 M25.461 Effusion, right knee Liz Deniz, M.D. 07/25/2018 M25.462 Effusion, left knee Liz Deniz, M.D. 07/25/2018 M17.0 Bilateral primary osteoarthritis of knee Liz Deniz, M.D. 07/14/2018 Z00.00 Encounter for general adult medical Michelle Varn, N.P. examination without abno 07/14/2018 Z12.31 Encounter for screening mammogram for Michelle Varn, N.P. malignant neoplasm of 07/14/2018 K21.9 Gastro-esophageal reflux disease without Michelle Varn, N.P. esophagitis 07/14/2018 M05.79 Rheumatoid arthritis with rheumatoid factor Michelle Varn , N.P. of multiple site 07/14/2018 I10 Essential (primary) hypertension Michelle Varn, N.P. 07/14/2018 E03.9 Hypothyroidism, unspecified Michelle Varn, N.P. 07/14/2018 H92.02 Otalgia, left ear Michelle Norris, N.P. 07/01/2018 H92.02 Otalgia, left ear Michelle Norris, N.P. Plan of Treatment Future Appointment(s):01/21/2019 10:20 am - Michelle Norris NMireya at [facility] Internal Medicine - [facility]02/10/2019 8:00 am - Be Currie MD at [facility] Qehyhquijortujog07/23/2019 8:15 am - Liz Guaman M.D. at [facility]12/24/2018 - Evonne Galvan M.D.N30.00 Acute cystitis without hematuriaNew Medication:Nitrofurantoin Macrocrystal 100 mg - 1 by mouth twice a day Functional Status Description No Information Available Mental Status Description No Information Available Referrals Refer to Dr Reason for Referral Status Appt Date Anmol Oconnor MD Patient with left ear discomfort and Received Partial tinnitus referred for evaluation and treatment. [address] [place] [address] [phone]
[2019-01-03 13:15] VITALS: BP 136/73
--- NOTE | 2019-01-03 13:43 | UC ---
Lower Extremity/Ankle HPI - HPI Summary HPI Summary: Patient is a 73yo female presenting with left claire bruising and swelling x4-5 days after hitting it on her porch steps when she tripped. Patient denies pain with ambulation. Notes mild tenderness to palpation of bruise. Notes small abrasion on anterior claire where she injured it. Notes increasing warmth and redness of the area. Denies decreased ROM. Denies decreased sensation. Denies numbness and tingling. Denies SOB and difficulty breathing. Denies cough. Denies n/v/d. Denies fever and chills. Patient has used ice and elevation for symptoms relief. - History of Current Complaint Chief Complaint: UCLowerExtremity Stated Complaint: LEFT CLAIRE INJURY Hx Obtained From: Patient Hx Last Menstrual Period: NA Severity Currently: None Pain Intensity: 0 Pain Scale Used: 0-10 Numeric - Allergies/Home Medications Allergies/Adverse Reactions: Allergies Allergy/AdvReac Type Severity Reaction Status Date / Time ENVIRONMENTAL Allergy STUUFY Uncoded 01/03/19 13:10 NOSE, BURNING EYES PMH/Surg Hx/FS Hx/Imm Hx Endocrine History: Thyroid Disease - Surgical History Surgical History: Yes Surgery Procedure, Year, and Place: THYROIDECTOMY, , [facility] [place], [facility] [place], , [facility] [place], 03/2011, [facility] [place]olecyst[place] 2012. BASAL CELL REMOVED RIGHT HAND - Family History Known Family History: Positive: None, Hypertension, Diabetes Negative: Cardiac Disease - Social History Alcohol Use: Daily Alcohol Amount: 1 drink per night Substance Use Type: None Smoking Status (MU): Never Smoked Tobacco - Immunization History Most Recent Influenza Vaccination: fall 2016 Most Recent Pneumonia Vaccination: 2015 Review of Systems All Other Systems Reviewed And Are Negative: Yes Constitutional: Positive: Negative. Negative: Fever, Chills, Fatigue Skin: Positive: Rash, Bruising Eyes: Positive: Negative ENT: Positive: Negative Respiratory: Positive: Negative. Negative: Shortness Of Breath, Cough Cardiovascular: Positive: Negative. Negative: Palpitations, Chest Pain Gastrointestinal: Positive: Negative. Negative: Abdominal Pain, Vomiting, Diarrhea, Nausea Motor: Positive: Negative Neurovascular: Positive: Negative Musculoskeletal: Positive: Edema Neurological: Negative: Paresthesia, Numbness Physical Exam Triage Information Reviewed: Yes Appearance: Well-Appearing, No Pain Distress, Well-Nourished Vital Signs: Initial Vital Signs Temp 97.8 F 01/03/19 13:11 Pulse 73 01/03/19 13:11 Resp 18 01/03/19 13:11 BP 136/73 01/03/19 13:11 Pulse Ox 100 01/03/19 13:11 Vital Signs Reviewed: Yes Eyes: Positive: Conjunctiva Clear ENT: Positive: Hearing grossly normal Neck exam: Normal Neck: Positive: Supple Respiratory Exam: Normal Respiratory: Positive: Lungs clear, Normal breath sounds, No respiratory distress, No accessory muscle use. Negative: Crackles, Rhonchi, Stridor, Wheezing Cardiovascular Exam: Normal Cardiovascular: Positive: RRR, Pulses Normal, Brisk Capillary Refill. Negative : Tachycardia Musculoskeletal Exam: Normal Musculoskeletal: Positive: Strength Intact, ROM Intact, Edema @ - left anterior claire and ankle Neurological: Positive: Alert Psychological: Positive: Age Appropriate Behavior Skin: Positive: Other - large area of ecchymosis noted on anterior claire extended down to ankle. 1cm fluctuant blood blister noted in center of bruise. no drainage. mild erythema and warmness extending from center of bruise outward , difficult to separate ecchymosis from infectious source Lower Extremity Course/Dx - Course Course Of Treatment: Patient concerned for infection of her leg, and will be going on vacation to [place] for the next week. VS normal. It is unclear whether erythema is from cellulitis or ecchymosis based on PE findings. Will treat patient will short course of Keflex for possible cellulitis. Patient voiced understanding and agreed to treatment plan. - Differential Dx/Diagnosis Provider Diagnosis: Cellulitis, Traumatic ecchymosis of left lower leg Discharge ED - Sign-Out/Discharge Documenting (check all that apply): Patient Departure All imaging exams completed and their final reports reviewed: No Studies - Discharge Plan Condition: Stable Disposition: HOME Prescriptions: Cephalexin CAP* [Keflex CAP*] 500 mg PO TID #15 cap Patient Education Materials: Cellulitis (ED) Referrals: Susanna Chinchilla MD [Primary Care Provider] - If Needed Additional Instructions: As discussed, take Keflex as prescribed for the treatment of cellulitis. Keep the area clean and dry. Follow up with your primary care physician if your symptoms persist. Go to the emergency room if you experience fever, increasing redness and warmth to the area, drainage, or nausea and vomiting. - Billing Disposition and Condition Condition: STABLE Disposition: Home
== END 2019-01-03 13:40 | disposition home or self-care (01) ==
LOC: UCEAST 13:01
DX: S80.12XA Contusion of left lower leg, initial encounter (principal); L03.116 Cellulitis of left lower limb; Z91.09 Other allergy status, other than to drugs and biological substances; W18.49XA Other slipping, tripping and stumbling without falling, initial encounter; W22.8XXA Striking against or struck by other objects, initial encounter; Y92.9 Unspecified place or not applicable
CPT/HCPCS: 99212; G0463

== ENCOUNTER 2019-05-05 11:00 | Inpatient (IN) | payer MEDICARE, BC ==
--- NOTE | 2019-04-20 20:46 | HP ---
PREOPERATIVE HISTORY AND PHYSICAL: DATE OF ADMISSION/SURGERY: 05/05/19 DATE OF OFFICE VISIT: 04/20/19 ATTENDING SURGEON: Dr. Liz Guaman.* (DICTATED BY JORY ALVAREZ) PROCEDURE: Right total knee replacement. CHIEF COMPLAINT: Right knee pain. HISTORY OF PRESENT ILLNESS: Ms. Falcon is a 73-year-old female, who presents to the clinic for right knee pain due to end-stage osteoarthritis. She has failed conservative measures and has therefore agreed to undergo a right total knee replacement with Dr. Guaman on 05/05/19. PAST MEDICAL HISTORY: Inflammatory osteoarthritis, peptic ulcer disease, varicose veins, basal cell carcinoma, hypertension, hypothyroidism from removal of the thyroid. PAST SURGICAL HISTORY: Several foot surgeries, subtotal thyroidectomy, sclerotherapy, colonoscopy, vein stripping, cholecystectomy, EGD, cataracts, Mohs on the scalp. The patient denies prior complications with anesthesia. MEDICATIONS: 1. Tramadol 50 mg 1 by mouth 3 times a day as needed. 2. Omeprazole 20 mg 2 by mouth every day. 3. Probiotic 1 daily. 4. Biotin 500 mcg one daily. 5. Levothyroxine 100 mcg 1 tab 6 days a week, 1-1/2 tabs on Saturday. 6. Tolterodine tartrate 4 mg 1 capsule daily. 7. Hydrochlorothiazide 25 mg 1 daily. 8. Plaquenil 200 mg 2 daily. 9. Multivitamins 1 daily. 10. Fish oil 1200 mg 2 by mouth daily. 11. Glucosamine and chondroitin 2 by mouth daily. 12. Vitamin D 1 by mouth daily. 13. FiberCon 625 mg 1 by mouth twice a day. 14. MiraLax 3350 of 17 g in 8-ounce fluid as needed. 15. Tylenol 8 Hour 650 mg 1 by mouth as needed up to 4 a day. 16. Vitamin B complex once a day. 17. Turmeric 500 mg 1 cap daily. 18. Chondroitin sulfate complex 400-60-2.5 mg 1 daily. 19. Restasis 0.5% one drop each side once a day. ALLERGIES: No known drug allergies. She does have seasonal allergies. FAMILY HISTORY: Positive for thyroid disease, cancer, RA, and hypertension. Denies family history of DVT or PE. SOCIAL HISTORY: She lives with her spouse. 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 She denies tobacco use. She reports occasional alcohol consumption, one drink at night. She is right-hand dominant. REVIEW OF SYSTEMS: A 14-point review of systems was reviewed with the patient. Positive for current complaint, otherwise negative. Denies fever, chills, chest pain, shortness of breath, history of bleeding disorder, history of DVT or PE. PHYSICAL EXAMINATION GENERAL: A 73-year-old well-developed, well-nourished female, in no acute distress. VITAL SIGNS: Height 69.5, weight 168, pulse 63, blood pressure 138/81, temperature 97.6, BMI 24.5. HEENT: Normocephalic, atraumatic. PERRLA. Throat clear. NECK: Supple. PULMONARY: Lungs are clear to auscultation bilaterally. No wheezing, rhonchi or rales. CARDIO: Regular rate and rhythm. S1 and S2. No murmurs, gallops or rubs. No edema. ABDOMEN: Positive bowel sounds. Soft and nontender. NEUROLOGIC: Alert and oriented x3. Cranial nerves grossly intact. MUSCULOSKELETAL: Right lower extremity: Skin is intact. No abrasions or open wounds. No palpable masses or lymph nodes. Moderate effusion and 12 degrees of valgus deformity. MCL tenderness to palpation, but no varus or valgus instability. Range of motion 5 to 120. Calf is soft and nontender. +5/5 strength to ankle dorsiflexion and plantar flexion. +2 DP pulses. Sensation is intact to light touch distally. DIAGNOSTIC STUDIES/LAB DATA: Multi-view x-rays of the bilateral knees revealed advanced osteoarthritis with [id number] contact with patellofemoral compartment of the right knee with tricompartmental joint space narrowing, osteophyte formation, and subchondral sclerosis. IMPRESSION: Right knee osteoarthritis. PLAN/RECOMMENDATIONS: The patient is scheduled to undergo a right total knee replacement with Dr. Guaman on 05/05/19. She will follow up in 10 to 14 days postop for followup and suture removal. Percocet will be used for postop pain. She will continue her Plaquenil before and after surgery. JORY ALVAREZ [id number]/[facility] #: [id number] [facility]OSPITALJas[facility]
[~2019-05-05 11:00] MED LIST: Acetaminophen TAB* 325 MG PO ONE; Buffered Lidocaine 1% SYRIN* 1 ML/SYRINGE INTRADERM ONE; Gabapentin CAP(*) 300 MG PO ONE; Lactated Ringers 1000 ML Bag* 1,000 ML IV SCH; Tranexamic Acid 1,000 MG in NS 0.9% 50 ML* (outpatient use) IV SCH; celeCOXIB CAP* 200 MG PO ONE
--- OUTSIDE RECORDS SUMMARY | 2019-05-05 12:07 | XMS REPORT | Continuity of Care Document ---
:1945 External Reference #:[id number] Author Name Liz Guaman M.D. (transmitted by agent of provider Coni Beltran) Address [address] [address] Care Team Providers Name Role Phone Susanna Chinchilla MD - Internal Care Team Information Director Of Strategy & Mobile Medicine Anmol Oconnor MD - Otolaryngology Care Team Information Director Of Strategy & Mobile [phone] Problems Active Problems Provider Date Essential hypertension Michelle Norris N.P. Onset: 05/17/2015 Hypothyroidism Francine Garcia M.D., FACP Onset: 02/28/2010 Note: 1983 s/p subtotal hypothyroidectomy Gastroesophageal reflux disease Francine Garcia M.D., FACP Onset: 02/28/2010 Rheumatoid arthritis Michelle Norris N.Charmaine. Onset: 03/03/2012 Note: Dr Michelle Lr ([phone]) [place]; had been on Celebrex then meloxicam (11 [...] Onset: 05/31/2018 Note: on labs drawn in [place] in 2019 and rheum suggested reduced acetaminophen; at [facility] per her primary office twelve sets of LFTs since 03/05/11 have all been normal; ALTs all under 33 and since 2014 under 25; Social History Type Date Description Comments Sex Unknown ETOH Use Currently consumes 3 - 5 per week alcohol Tobacco Use Start: Unknown Patient has never smoked Smoking Status Reviewed: 04/20/19 Patient has never smoked Exercise Exercises sporadically mowing, has a horse Type/Frequency Allergies, Adverse Reactions, Alerts Active Allergies Reaction Severity Comments Date NKDA 08/02/2016 Seasonal 11/15/2015 Inactive Allergies NKDA 02/16/2010 Medications Active Medications SIG Qnty Indications Ordering Date Provider Tramadol HCL 1 tablet three 42tabs M46.1 Michelle Varmalia, 03/16/2019 50mg Tablets times daily as N.P. needed Omeprazole 2 by mouth 180caps Anuradha 06/13/[address] every day Carrie Lorenzo NP Probiotic 1 by mouth 30caps Michelle Varmalia, 01/17/2018 Capsules every day N.P. Biotin 1 tablet every 14tabs Michelle Varn, 11/06/2017 5000mcg Tablets day N.P. Levothyroxine Sodium Take One 96tabs Michelle Varn, 10/30/2016 100mcg Tablet 6 Days N.P. Tablets A Week, One And One-Half Tablets On Saturday Tolterodine Tartrate ER take 1 capsule 90caps Michelle Varmalia, 02/15/2010 4mg Caps daily N.P. ER 24HR Hydrochlorothiazide Take 1 Tablet 90tabs Michelle Varmalia, 02/15/2010 25mg Tablets Daily N.P. Restasis tid Unknown 0.05% Emulsion Chondroitin Sulfate Unknown Complex 400-60-2.5mg Capsules Turmeric take 1 Unknown 500mg Capsules capsule/tablet daily by mouth B Complete once a day Unknown Tablets Tylenol 8 Hour Arthritis as needed, up Unknown Pain 4/day 650mg Tablets ER Miralax 17 gm in 8 oz K21.9 Unknown 3350NF Powder fluid as needed Fibercon take 1 tablets Unknown 625mg Tablets by mouth two times daily or as directed Calcium + D (600mg) 1 po Unknown Chewtabs daily Glucosamine Chondroitin 2 po qd Unknown Tablets Fish Oil 2 po qd Unknown 1200mg Capsules Multivitamin 1 po qd Unknown Plaquenil 2 Daily 60tabs Unknown 200mg Tablets History Medications Mupirocin apply once daily 44gm S81.802D Michelle Jr, 01/12/2019 - 2% Ointment to wound N.P. 01/22/2019 Doxycycline Hyclate 1 by mouth twice a 20caps Michelle Norris, 01/05/2019 - day x 10 days N.P. 01/15/2019 100mg Capsules Cephalexin Three Times Daily 15caps Unknown 01/03/2019 - 500mg 01/05/2019 Capsules Nitrofurantoin 1 by mouth twice a 10caps N30.00 [facility] 12/24/2018 - Macrocrystal day Prieto Galvan 12/29/2018 100mg Capsules Macrobid 1 cap twice a day 10caps Evonne 12/24/2018 - 100mg Capsules X 5 days Prieto Galvan 12/29/2018 Suprep Bowel Prep Kit take according to 354ml Be Eden 12/12/2018 - the instructions MD Kush 02/17/2019 17.5-3.13-1.6GM/177ML you received, the Solution afternoon before and morning of your procedure. [facility] Magnesium Citrate drink the entire 296ml Be Eden 12/12/2018 - bottle after MD Kush 02/17/2019 1.745GM/30ML Solution dinner, two days before your procedure Medications Administered in Office Medication SIG Qnty Indications Ordering Provider Date Brittanirol 40MG Liz Guaman M.D. 01/21/2019 Injection Herminioomedrol 40MG Liz Guaman M.D. 01/21/2019 Injection Herminioomedrol 40MG Liz Guaman M.D. 10/29/2018 Injection Herminioomedrol 40MG Liz Guaman M.D. 10/29/2018 Injection Brittanirol 40MG Liz Guaman M.D. 07/25/2018 Injection Herminioomedrol 40MG Liz Guaman M.D. 07/25/2018 Injection Depomedrol 40MG Liz Guaman M.D. 04/21/2018 Injection Depomedrol 40MG Liz Guaman M.D. 04/21/2018 Injection Depomedrol 40MG Liz Guaman M.D. 11/22/2017 Injection Depomedrol 40MG Liz Guaman M.D. 11/22/2017 Injection Immunizations CPT Code Status Date Vaccine Lot # [id number] Given 01/01/2019 Influenza Virus Vaccine, Quadrivalent, Split, Preservative Free 82989 Given 12/19/2017 Influenza Virus Vaccine, Quadrivalent, Split, [id number] Preservative Free 24704 Given 12/28/2016 Influenza Virus Vaccine, Quadrivalent, Split, [id number] Preservative Free Q2039 Given 01/06/2016 Flu Vaccine NOS 52181 Given 04/30/2014 Pneumococcal Conjugate Vaccine 13 Valent For [id number] Intramuscular Use 99220 Given 01/05/2014 Influenza Virus Vaccine, Quadrivalent, Split, [id number] Preservative Free 76940 Given 12/29/2012 Hepatitis B Vaccine Adult Dosage [id number] 96871 Given 12/29/2012 Flu Vaccine Split Virus Preservative Free For [id number] Indiv 3Yr Older 44808 Given 12/29/2012 Hepatitis A Vaccine Adult Dosage [id number] 93513 Given 07/29/2012 Hepatitis B Vaccine Adult Dosage [id number] 40801 Given 06/18/2012 Hepatitis B Vaccine Adult Dosage [id number] 88510 Given 06/18/2012 Tdap - Tetanus/Diptheria/Acellular Pertussis [id number] 19697 Given 06/18/2012 Hepatitis A Vaccine Adult Dosage [id number] Q2038 Given 12/28/2011 Fluzone Vaccine [id number] Q2035 Given 01/03/2011 Afluria Vaccine 63516 Given 02/16/2010 Pneumonia Vaccine 31948 Given 02/16/2010 Influenza Virus 3Yrs & Over 73058 Given 04/07/2009 Influenza Virus Vaccine, Pandemic Formulation 44616 Given 04/07/2009 Administration Swine Flu Shot 04273 Given 03/09/2009 Influenza Virus 3Yrs & Over 89010 Given 01/12/2008 Influenza Virus 3Yrs & Over 53617 Given 01/13/2007 Influenza Virus 3Yrs & Over 46871 Given 01/13/2007 Influenza Virus 3Yrs & Over 67247 Given 10/09/2006 Zoster (Zostavax) 72221 Given 04/12/2006 Influenza Virus 3Yrs & Over 73544 Given 04/12/2006 Influenza Virus 3Yrs & Over Vital Signs Date Vital Result Comment 04/20/2019 8:47am Height 69.5 inches 5'9.50" Weight 167.50 lb Heart Rate 60 /min BP Systolic 130 mmHg BP Diastolic 70 mmHg Respiratory Rate 18 /min Body Temperature 97.7 F Pain Level 0 BMI (Body Mass Index) 24.4 kg/m2 03/16/2019 11:51am Height 69.5 inches 5'9.50" Weight 165.00 lb Heart Rate 72 /min BP Systolic Sitting 117 mmHg BP Diastolic Sitting 71 mmHg Body Temperature 98.4 F O2 % BldC Oximetry 98 % BMI (Body Mass Index) 24.0 kg/m2 Results Test Acquired Date Facility Test Result H/L Range Note Laboratory test 02/10/2019 [facility] Clotest SEE RESULT [address] [place] [address] [phone] Ua Routine 12/24/2018 [facility] Ua Specific 1.010 [place] Ua PH 6 Ua Color dark yellow Ua Appera cloudy Ua WBC ++ Ua Protein trace Ua Glucose norm Ua Ketones - Ua Bilirubin - Ua Urobilinogen 1 Ua Nitrite - Ua Occult Blood 250 1 SEE RESULT BELOW Name: INDY BRYSON : [address]: Be Currie MD Acct: [id number] Unit: [id number] AGE: 73 Location: ENDO Re02/10/19 SEX: F Status: REG REF SPEC: [id number] DOMINIQUE: 02/10/19 [facility] [address]: Be Currie MD REQ: [id number] RECD: 02/10/19 STATUS:COMP VIDAL DR: Michelle Norris ARCHITECTURAL TECHNOLOGIST _ SOURCE: GAS ANTRUM SPDESC: ORDERED: Clotest Procedure Result Reported Site Clotest Final 02/11/19- 0759 ML Clotest Negative * ML - Main Lab . END OF REPORT DEPARTMENT OF PATHOLOGY, [address] [place] [address] Juan Her M.D. Director [facility] # [id number] Procedures Date Code Description Status 02/23/2019 72521 Removal Devitalization Tissue Wound Less Than Equal 20 Completed Square CM 02/13/2019 80232 Removal Devitalization Tissue Wound Less Than Equal 20 Completed Square CM 02/10/2019 45718 Colonoscopy Flexible Diagnostic Completed 02/10/2019 75080 Endoscopy Upper GI Biopsy Completed 02/06/2019 50252 Debridement Skin,& sq Tissue Completed 01/21/2019 Inject/Drain Joint/Bursa Major W/O US Completed 10/29/2018 Inject/Drain Joint/Bursa Major W/O US Completed 01/17/2018 605499799 Diabetic Foot Exam Completed 07/18/2017 00759687 Mammogram Completed 05/22/2017 253946031 Diabetic Retinal Eye Exam Completed 03/26/2017 14656700 Colonoscopy Completed 08/01/2016 16126366 Mammogram Completed 07/16/2016 06038897 Mammogram Completed 05/19/2015 36289146 Mammogram Completed 10/21/2014 15151964 Colonoscopy Completed 05/18/2014 64136111 Mammogram Completed 05/01/2013 53304491 Mammogram Completed 03/28/2012 54728814 Mammogram Completed 03/09/2011 57956786 Mammogram Completed 03/02/2010 00574449 Mammogram Completed 03/02/2010 160157924 Bone Mineral Density Test Completed 06/24/2009 78648967 Colonoscopy Completed 03/28/2000 00746329 Colonoscopy Completed Medical Devices Description No Information Available Encounters Type Date Location Provider Dx Diagnosis Office Visit 03/16/2019 [facility] Michelle Norris, M46.1 Sacroiliitis, not 11:40a Medicine - Ccmob N.P. elsewhere classified M20.42 Other hammer toe(s) (acquired), left foot Office Visit 02/06/2019 1:45p Wound Care Sydni Meade, L97.821 [facility]- [facility] AT [facility] ACOSTA RN, GENERAL HARDWARE SALESPERSON-BC ulcer oth prt l low leg limited to brkdwn skin S81.802A Unspecified open wound, left lower leg, initial encounter I87.302 Chronic venous hypertension w/o comp of l low extrem Office Visit 02/06/2019 8:00a [facility] Liz Guaman, M25.562 Pain in left at [place] M.D. knee M25.561 Pain in right knee M25.462 Effusion, left knee M25.461 Effusion, right knee M17.0 Bilateral primary osteoarthritis of knee Office Visit 01/21/2019 10:20a [facility] Michelle Norris, I10 Essential ( primary) Medicine - Ccmob N.P. hypertension S81.802D Unspecified open wound, left lower leg, subsequent encounter Office 01/12/2019 [facility] Michelle S81.802D Unspecified open Visit 3:40p - Ccmelida Norris, N.P. wound, left lower leg, subsequent encounter Office 12/24/2018 [facility] Evonne N30.00 Acute cystitis Visit 10:30a - Girish Galvan M.D. without hematuria Office 11/27/2018 [facility] Be Eden K25.9 Gastric ulcer, Visit 8:00a MD Kush unsp as acute or chronic, w/o hemor or perf K58.1 Irritable bowel syndrome with constipation K59.00 Constipation, unspecified Z80.0 Family history of malignant neoplasm of digestive organs R94.5 Abnormal results of liver function studies Assessments Date Code Description Provider 04/20/2019 M17.11 Unilateral primary osteoarthritis, Liz Guaman M.D. right knee 04/20/2019 M25.561 Pain in right knee Liz Guaman M.D. 03/16/2019 M46.1 Sacroiliitis, not elsewhere Michelle Norris, N.P. classified 03/16/2019 M20.42 Other hammer toe(s) (acquired), Michelle Norris, N.P. left foot 02/23/2019 L97.821 Non-pressure chronic ulcer of other Sydni Meade DNP , RN, part of left lower leg limited to [employer] H[employer] SALESPERSON-BC breakdown of skin 02/23/2019 I87.302 Chronic venous hypertension Sydni Meade DNP, RN, (idiopathic) without complications [employer] HARDWARE SALESPERSON-BC of left lower extremity 02/13/2019 L97.821 Non-pressure chronic ulcer of other Sydni Meade DNP , RN, part of left lower leg limited to GENERAL HARDWARE SALESPERSON-BC breakdown of skin 02/13/2019 I87.302 Chronic venous hypertension Sydni Meade DNP, RN, (idiopathic) without complications [employer] HARDWARE SALESPERSON-BC of left lower extremity 02/10/2019 K59.00 Constipation, unspecified Be Currie MD 02/10/2019 R19.7 Diarrhea, unspecified Be Currie MD 02/10/2019 K57.30 Diverticulosis of large intestine Be Currie MD without perforation or abscess without bleeding 02/10/2019 K63.89 Other specified diseases of Be Currie MD intestine 02/10/2019 K21.9 Gastro-esophageal reflux disease Be Currie MD without esophagitis 02/10/2019 R10.13 Epigastric pain Be Currie MD 02/06/2019 L97.821 Non-pressure chronic ulcer of other Sydni Meade DNP , RN, part of left lower leg limited to GENER[employer] HARDWARE SALESPERSON-BC breakdown of skin 02/06/2019 S81.802A Unspecified open wound, left lower Sydni Meade DNP , RN, leg, initial encounter GENERAL HARDWARE SALESPERSON-BC 02/06/2019 I87.302 Chronic venous hypertension Sydni Meade DNP, RN, (idiopathic) without complications [employer] HARDWARE SALESPERSON-BC of left lower extremity 02/06/2019 M25.562 Pain in left knee Liz Guaman M.D. 02/06/2019 M25.561 Pain in right knee Sidra HughesDRadha 02/06/2019 M25.462 Effusion, left knee Liz Guaman M.D. 02/06/2019 M25.461 Effusion, right knee Liz Guaman M.D. 02/06/2019 M17.0 Bilateral primary osteoarthritis of Liz Guaman M.D. knee 01/21/2019 I10 Essential (primary) hypertension Michelle Varn, N.P. 01/21/2019 M25.562 Pain in left knee Sidra HughesDRadha 01/21/2019 S81.802D Unspecified open wound, left lower Michelle Varn, N.P. leg, subsequent encounter 01/21/2019 M25.561 Pain in right knee Liz Guaman M.D. 01/21/2019 M25.462 Effusion, left knee Sidra HughesDRadha 01/21/2019 M25.461 Effusion, right knee Sidra HughesDRadha 01/21/2019 M17.0 Bilateral primary osteoarthritis of Liz Guaman M.D. knee 01/12/2019 S81.802D Unspecified open wound, left lower Michelle Varn, N.P. leg, subsequent encounter 12/24/2018 N30.00 Acute cystitis without hematuria Evonne Galvan M.D. 11/27/2018 K25.9 Gastric ulcer Be Currie MD 11/27/2018 K58.1 Irritable bowel syndrome with Be Currie MD constipation 11/27/2018 K59.00 Constipation, unspecified Be Currie MD 11/27/2018 Z80.0 Family history of malignant Be Currie MD neoplasm of digestive organs 11/27/2018 R94.5 Abnormal results of liver function Be Currie MD studies 10/29/2018 M25.561 Pain in right knee Liz Guaman M.D. 10/29/2018 M25.562 Pain in left knee Liz Guaman M.D. 10/29/2018 M25.461 Effusion, right knee Liz Guaman M.D. 10/29/2018 M25.462 Effusion, left knee Liz Guaman M.D. 10/29/2018 M17.0 Bilateral primary osteoarthritis of Liz Guaman M.D. knee Plan of Treatment Future Appointment(s):05/05/2019 12:30 pm - Liz Guaman M.D. at [facility]07/17/2019 9:20 am - Michelle Norris N.P. at [facility] - [facility]04/27/2019 8:00 am - Liz Guaman M.D. at [facility]04/20/2019 - Liz Guaman M.D.M17.11 Unilateral primary osteoarthritis , right kneeFollow up:10-14 days post opM25.561 Pain in right knee Functional Status Description No Information Available Mental Status Description No Information Available Referrals Refer to Reason for Referral Status Appt Date Wound Clinic Patient with left lower leg wound, referred for Sent 02/06/2019 treatment. [address] [place] [address] [phone]
--- OUTSIDE RECORDS SUMMARY | 2019-05-05 12:07 | XMS REPORT | Continuity of Care Document ---
:1945 External Reference #:[id number] Author Name Anmol Lo M.D. (transmitted by agent of provider Shelly Fields ) Address [address] [place] [id number] Care Team Providers Name Role Phone Susanna Chinchilla MD - Internal Care Team Information Magnetizer [phone] Medicine Anmol Oconnor MD - Otolaryngology Care Team Information Magnetizer Problems Active Problems Provider Date Essential hypertension Michelle Norris N.P. Onset: 05/17/2015 Hypothyroidism Francine Garcia M.D., FACP Onset: 02/28/2010 Note: 1984 s/p subtotal hypothyroidectomy Gastroesophageal reflux disease Francine Garcia M.D., FACP Onset: 02/28/2010 Rheumatoid arthritis Michelle Norris N.P. Onset: 03/03/2012 Note: Dr Michelle Lr ([phone]) [place]; had been on Celebrex then meloxicam (11 [...] Onset: 05/31/2018 Note: on labs drawn in [place] in 2019 and rheum suggested reduced acetaminophen; at [facility] per her primary office twelve sets of LFTs since 03/05/11 have all been normal; ALTs all under 33 and since 2015 under 25; Social History Type Date Description [...] HCL 1 tablet three 42tabs M46.1 Michelle Norris, 03/16/2019 50mg Tablets times daily as N.P. needed Omeprazole 2 by mouth 180caps Anuradha 06/13/[address] every day Carrie Lorenzo, [place] Probiotic 1 by mouth 30caps Michelle Jr, 01/17/2018 Capsules every day N.P. Biotin 1 tablet every 14tabs Michelle Varn, 11/06/2017 5000mcg Tablets day N.P. Levothyroxine Sodium Take One 96tabs Michelle Jr, 10/30/2016 100mcg Tablet 6 Days N.P. Tablets A Week, One And One-Half Tablets On Saturday Tolterodine Tartrate ER take 1 capsule 90caps Michelle Jr, 02/15/2010 4mg Caps daily N.P. ER 24HR Hydrochlorothiazide Take 1 Tablet 90tabs Michelle Jr, 02/15/2010 25mg Tablets Daily N.P. Restasis tid [...] 1 by mouth twice a 10caps N30.00 [facility] 12/24/2018 - Macrocrystal day Prieto Galvan 12/29/2018 100mg Capsules Macrobid 1 cap twice a day 10caps [facility] 12/24/2018 - 100mg Capsules X 5 days [...] Medication SIG Qnty Indications Ordering Provider Date Depmaricruzrol 40MG Liz Guaman M.D. 01/21/2019 Injection Herminioomedrol 40MG Liz Guamna M.D. 01/21/2019 Injection Herminioomedrol 40MG Liz Guaman [...] CPT Code Status Date Vaccine Lot # [id number] Given 01/01/2019 Influenza Virus Vaccine, Quadrivalent, Split, Preservative Free 29161 Given 12/19/2017 Influenza Virus Vaccine, Quadrivalent, Split, [id number] Preservative Free 36707 Given 12/28/2016 Influenza Virus Vaccine, Quadrivalent, Split, [id number] Preservative Free [id number] Given 01/06/2016 Flu Vaccine NOS 13970 Given 04/30/2014 Pneumococcal Conjugate Vaccine 13 Valent For [id number] Intramuscular Use 86169 Given 01/05/2014 Influenza Virus Vaccine, Quadrivalent, Split, [id number] Preservative Free 72083 Given 12/29/2012 Hepatitis B Vaccine Adult Dosage [id number] 94738 Given 12/29/2012 Flu Vaccine Split Virus Preservative Free For [id number] Indiv 3Yr Older 38329 Given 12/29/2012 Hepatitis A Vaccine Adult Dosage [id number] 87895 Given 07/29/2012 Hepatitis B Vaccine Adult Dosage [id number] 22590 Given 06/18/2012 Hepatitis B Vaccine Adult Dosage [id number] 00094 Given 06/18/2012 Tdap - Tetanus/Diptheria/Acellular Pertussis [id number] 49841 Given 06/18/2012 Hepatitis A Vaccine Adult Dosage [id number] Q2038 Given 12/28/2011 Fluzone Vaccine [id number] Q2035 Given 01/03/2011 Afluria Vaccine 49094 Given 02/16/2010 Pneumonia Vaccine 80761 Given 02/16/2010 Influenza Virus 3Yrs & Over 62148 Given 04/07/2009 Influenza Virus Vaccine, Pandemic Formulation 40928 Given 04/07/2009 Administration Swine Flu Shot 58513 Given 03/09/2009 Influenza Virus 3Yrs & Over 58775 Given 01/12/2008 Influenza Virus 3Yrs & Over 70952 Given 01/13/2007 Influenza Virus 3Yrs & Over 87078 Given 01/13/2007 Influenza Virus 3Yrs & Over 69625 Given 10/09/2006 Zoster (Zostavax) 90137 Given 04/12/2006 Influenza Virus 3Yrs & Over 34473 Given 04/12/2006 Influenza Virus 3Yrs & Over Vital Signs Date Vital Result Comment 04/20/2019 1:37pm Height 69.5 inches 5'9.50" Weight 168.38 lb Heart Rate 63 /min BP Systolic Sitting 130 mmHg BP Diastolic Sitting 81 mmHg Body Temperature 97.6 F O2 % BldC Oximetry 99 % BMI (Body Mass Index) 24.5 kg/m2 04/20/2019 8:47am Height 69.5 inches 5'9.50" Weight 167.50 lb Heart Rate 60 /min BP Systolic 130 mmHg BP Diastolic 70 mmHg Respiratory Rate 18 /min Body Temperature 97.7 F Pain Level 0 BMI (Body Mass Index) 24.4 kg/m2 Results Test Acquired Date Facility Test Result H/L Range Note Urinalysis Profile 04/20/2019 [facility] Urine Color Yellow [address] [place] [address] [phone] Urine Appearance Cloudy Urine Specific Hunter 1.009 Low 1.010-1.030 Urine pH 6.0 Normal 5-9 Urine Urobilinogen Negative Negative Urine Ketones Negative Negative Urine Protein Negative Negative Urine Leukocytes 3+ Abnormal Negative Urine Blood Negative Negative Urine Nitrite Negative Negative Urine Bilirubin Negative Negative Urine Glucose Negative Negative Urine White Blood Cell 3+(>20/hpf) Abnormal Absent Urine Red Blood Cell Absent Absent Urine Bacteria Absent Absent Urine Renal Epithelial Cells Present Abnormal Absent Inr/Protime 04/20/2019 [facility] Inr 0.94 Normal 0.82-1.[address] [place] [address] [phone] Laboratory test 04/20/2019 [facility] Partial 33.7 Normal 26.0 -38.0 finding [address] [facility] [place] [place] [address] Time PTT [phone] CBC Auto Diff 04/20/2019 [facility] White Blood 5.6 10^3/uL Normal 3.5-10.8 [facility] [address] [facility] [place] [address] [phone] Red Blood Count 3.97 10^6/uL Normal 3.70-4.87 Hemoglobin 13.2 g/dL Normal 12.0-16.0 Hematocrit 39 % Normal 35-47 Mean Corpuscular Volume 97 fL Normal 80-97 Mean Corpuscular Hemoglobin 33 pg High 27-31 Mean Corpuscular HGB Conc 34 g/dL Normal 31-36 Red Cell Distribution Width 13 % Normal 10-15 Platelet Count 207 10^3/uL Normal 150-450 Mean Platelet Volume 9.7 fL Normal 7.4-10.4 Abs Neutrophils 3.6 10^3/uL Normal 1.5-7.7 Abs Lymphocytes 1.4 10^3/uL Normal 1.0-4.8 Abs Monocytes 0.4 10^3/uL Normal 0-0.8 Abs Eosinophils 0.1 10^3/uL Normal 0-0.6 Abs Basophils 0.0 10^3/uL Normal 0-0.2 Abs Nucleated RBC 0.0 10^3/uL Granulocyte % 64.9 % Lymphocyte % 24.7 % Monocyte % 7.8 % Eosinophil % 2.1 % Basophil % 0.5 % Nucleated Red Blood Cells % 0.1 Basic Metabolic 04/20/2019 [facility] Sodium 139 mmol/L Normal 135-145 [place] [address] [phone] Potassium 3.1 mmol/L Low 3.5-5.0 Chloride 98 mmol/L Low 101-111 Co2 Carbon Dioxide 33 mmol/L High 22-32 Anion Gap 8 mmol/L Normal 2-11 Glucose 81 mg/dL Normal 70-100 Blood Urea Nitrogen 14 mg/dL Normal 6-24 Creatinine 0.72 mg/dL Normal 0.51-0.95 BUN/Creatinine Ratio 19.4 Normal 8-20 Calcium 9.5 mg/dL Normal 8.6-10.3 Egfr Non- 79.2 >60 Egfr 95.8 >60 2 Laboratory 04/20/2019 [facility] TSH (Thyroid 1.18 Normal 0.34 -5.[address] Stim Horm) mcIU/[place] [address] [phone] Free T4 (Free Thyroxine) 1.95 ng/dL High 0.61-1.12 Type & Screen 04/20/2019 [facility] Patient Blood [place] [address] [phone] Antibody Screen NEGATIVE Urine Culture And 04/20/2019 [facility] Urine Culture SEE RESULT [address] [place] [address] [phone] Laboratory test 02/10/2019 [facility] Clotest SEE RESULT [address] [place] [address] [phone] Ua Routine 12/24/2018 [facility] In House Ua Specific 1.010 Hunter Ua PH 6 Ua Color dark yellow Ua Appera cloudy Ua WBC ++ Ua Protein trace Ua Glucose norm Ua Ketones - Ua Bilirubin - Ua Urobilinogen 1 Ua Nitrite - Ua Occult Blood 250 1 Standard intensity warfarin therapeutic range: 2.0-3.0 High intensity warfarin therapeutic range: 2.5-3.5 2 Because ethnic data is not always readily [...] 15-29 5 Kidney failure <15 (or dialysis) 3 SEE RESULT BELOW Name: INDY BRYSON : [address]: Liz Guaman MD Acct: [id number] Unit: [id number] AGE: 73 Location: [facility] Re04/20/19 SEX: F Status: REG REF SPEC: [id number] DOMINIQUE: 04/20/19 [facility] DR: Liz Guaman MD REQ: [id number] RECD: 04/20/19 STATUS: COMP OTHR DR: Michelle Norris TECHNOLOGY TEACHER _ SOURCE: URINE SPDESC: ORDERED: Urine Culture QUERIES: Urine Source: Clean Catch Procedure Result Reported Site Urine Culture Final 04/21/19- 1023 ML No growth of clinically significant organisms * ML - Main Lab . END OF REPORT DEPARTMENT OF PATHOLOGY, [address] [place] [address] Juan Her M.D. Director [facility] # [id number] 4 SEE RESULT BELOW Name: INDY BRYSON : [address]: Be Currie MD Acct: [id number] Unit: [id number] AGE: 73 Location: ENDO Re02/10/19 SEX: F Status: REG REF SPEC: [id number] DOMINIQUE: 02/10/19 [facility] DR: Be Currie MD REQ: [id number] RECD: 02/10/19 STATUS:MAX DRAKE DR: Michelle Norris TECHNOLOGY TEACHER _ SOURCE: GAS ANTRUM SPDESC: ORDERED: Clotest Procedure Result Reported Site Clotest Final 02/11/19- 0759 ML Clotest Negative * ML - Main Lab . END OF REPORT DEPARTMENT OF PATHOLOGY, [address] [place] [address] Juan Her M.D. Director [facility] # [id number] Procedures Date Code Description Status 02/23/2019 34504 Removal Devitalization Tissue Wound Less Than Equal 20 Completed Square CM 02/13/2019 84382 Removal Devitalization Tissue Wound Less Than Equal 20 Completed Square CM 02/10/2019 19927 Colonoscopy Flexible Diagnostic Completed 02/10/2019 83817 Endoscopy Upper GI Biopsy Completed 02/06/2019 88332 Debridement Skin,& sq Tissue Completed 01/21/2019 79622 Inject/Drain Joint/Bursa Major W/O US Completed 10/29/2018 37312 Inject/Drain Joint/Bursa Major W/O US Completed 01/17/2018 513558476 Diabetic Foot Exam Completed 07/18/2017 92775835 Mammogram Completed 05/22/2017 625803899 Diabetic Retinal Eye Exam Completed 03/26/2017 10189622 Colonoscopy Completed 08/01/2016 42809134 Mammogram Completed 07/16/2016 38751296 Mammogram Completed 05/19/2015 12094462 Mammogram Completed 10/21/2014 61439003 Colonoscopy Completed 05/18/2014 07835289 Mammogram Completed 05/01/2013 16059030 Mammogram Completed 03/28/2012 85178078 Mammogram Completed 03/09/2011 01593200 Mammogram Completed 03/02/2010 74220418 Mammogram Completed 03/02/2010 815424883 Bone Mineral Density Test Completed 06/24/2009 96090418 Colonoscopy Completed 03/28/2000 45017413 Colonoscopy Completed Medical Devices Description No Information Available Encounters Type Date Location Provider Dx Diagnosis Office Visit 03/16/2019 [facility] Internal Michelle Norris, M46.1 Sacroiliitis, not 11:40a Medicine - Ccmob N.P. elsewhere classified M20.42 Other hammer toe(s) (acquired), left foot Office Visit 02/06/2019 1:45p Wound Care Sydni Meade, L97.821 Non- prs chr Center AT [facility] ACOSTA RN, [employer]ODU[employer] SUPERVISOR- ulcer oth prt l low leg limited to brkdwn skin S81.802A Unspecified open wound, left lower leg, initial encounter I87.302 Chronic venous hypertension w/o comp of l low extrem Office Visit 02/06/2019 8:00a [facility] Liz Guaman, M25.562 Pain in left at [place] M.DRadha knee M25.561 Pain in right knee M25.462 Effusion, left knee M25.461 Effusion, right knee M17.0 Bilateral primary osteoarthritis of knee Office Visit 01/21/2019 10:20a [facility] Internal Michelle Norris, I10 Essential ( primary) Medicine - Ccmob N.P. hypertension S81.802D Unspecified open wound, left lower leg, subsequent encounter Office 01/12/2019 [facility] Internal Medicine Michelle S81.802D Unspecified open Visit 3:40p - Ccmob Varn, N.P. wound, left lower leg, subsequent encounter Office 12/24/2018 [facility] Internal Medicine Evonne N30.00 Acute cystitis Visit 10:30a - Girish Galvan M.D. without hematuria Office 11/27/2018 [facility] Gastroenterology Be Eden K25.9 Gastric ulcer, Visit 8:00a MD Kush unsp as acute or chronic, w/o hemor or perf K58.1 Irritable bowel syndrome with constipation K59.00 Constipation, unspecified Z80.0 Family history of malignant neoplasm of digestive organs R94.5 Abnormal results of liver function studies Assessments Date Code Description Provider 04/20/2019 Z01.818 Encounter for other preprocedural Michelle Norris, N.P. examination 04/20/2019 M17.11 Unilateral primary osteoarthritis, Liz Guaman M.D. right knee 04/20/2019 M17.11 Unilateral primary osteoarthritis, Michelle Norris, N.P. right knee 04/20/2019 M25.561 Pain in right knee Liz Guaman M.D. 04/20/2019 I10 Essential (primary) hypertension Michelle Norris, N.P. 04/20/2019 M05.79 Rheumatoid arthritis with Michelle Varn, N.P. rheumatoid factor of multiple site 04/20/2019 E03.9 Hypothyroidism, unspecified Michelle Varn, N.P. 03/16/2019 M46.1 Sacroiliitis, not elsewhere Michelle Varn, N.P. classified 03/16/2019 M20.42 Other hammer toe(s) (acquired), Michelle Varn, N.P. left foot 02/23/2019 L97.821 Non-pressure chronic ulcer of other Sydni Meade DNP , RN, part of left lower leg limited to RE[employer] SUPERVISOR-BC breakdown of skin 02/23/2019 I87.302 Chronic venous hypertension Sydni Meade DNP, RN, (idiopathic) without complications [employer] SUPERVISOR-BC of left lower extremity 02/13/2019 L97.821 Non-pressure chronic ulcer of other Sydni Meade DNP , RN, part of left lower leg limited to REF[employer] SUPERVISOR-BC breakdown of skin 02/13/2019 I87.302 Chronic venous hypertension Sydni Meade DNP, [place], (idiopathic) without complications REF[employer]ODU[employer] SUPERVISOR-BC of left lower extremity 02/10/2019 K59.00 Constipation, [...] Non-pressure chronic ulcer of other Sydni Meade DNP, RN, part of left lower leg limited to REF[employer]ODUCTS SUPERVISOR-BC breakdown of skin 02/06/2019 S81.802A Unspecified open wound, left lower Sydni Meade DNP, RN, leg, initial encounter REF[employer]ODUCTS SUPERVISOR-BC 02/06/2019 I87.302 Chronic venous hypertension Sydni Meade DNP, [place], (idiopathic) without complications REF[employer]ODU[employer] SUPERVISOR-BC of left lower extremity 02/06/2019 M25.562 Pain in left knee Liz Guaman M.D. 02/06/2019 M25.561 Pain in right knee LizSidra MedinaD. 02/06/2019 M25.462 Effusion, left knee LizJordan Garza.D. 02/06/2019 M25.461 Effusion, right knee LizJordan Garza.D. 02/06/2019 M17.0 Bilateral primary osteoarthritis of Lizjamie Guaman M.D. knee 01/21/2019 I10 Essential (primary) hypertension Michelle Varn, N.P. 01/21/2019 M25.562 Pain in left knee LizJordan Medina.D. 01/21/2019 S81.802D Unspecified open wound, left lower Michelle Varn, N.P. leg, subsequent encounter 01/21/2019 M25.561 Pain in right knee Lizjamie Guaman M.D. 01/21/2019 M25.462 Effusion, left knee LizJordan Medina.D. 01/21/2019 M25.461 Effusion, right knee LizSidra GarzaD. 01/21/2019 M17.0 Bilateral primary osteoarthritis of Liz Prieto Guaman knee 01/12/2019 S81.802D Unspecified open wound, left [...] 12:30 pm - Liz Guaman M.D. at [facility] at [facility]4/27/2019 8:00 am - Liz Guaman M.D. at [facility] at Dffpsu4804/20/2019 - Liz Guaman M.D.M17.11 Unilateral primary osteoarthritis, right kneeFollow up:10-14 days post opM25.561 Pain in right knee Functional Status Description No Information Available Mental Status Description No Information Available Referrals Refer to Dr Reason for Referral Status Appt [facility] Patient with left lower leg wound, referred for Sent 02/06/[address] [place] [id number] [phone]
--- OUTSIDE RECORDS SUMMARY | 2019-05-05 12:07 | XMS REPORT | Continuity of Care Document ---
:1945 Author Organization [facility] Address [address], [place] [id number] Phone Care Team Providers Name Role Phone Michelle Lr MD Unavailable Unavailable Allergies, Adverse Reactions, Alerts Substance Reaction Status NSAIDS (Non-Steroidal Anti-Inflammatory Drug) BLEEDING ULCER Active Medications Medication Instructions Dosage Effective Status Comments Dates (start - stop) Plaquenil 200 mg tablet take 2 tablet by 400 MG - Active oral route every day Voltaren 1 % topical gel apply (2G) by - Active topical route 4 times every day to the affected area(s) hydrochlorothiazide 25 take 1 tablet by 25 MG - Active mg tablet oral route every day Centrum Silver Women 8 - Active mg iron-400 mcg-300 mcg tablet Calcium 500 + D 500 mg - Active (1,250 mg)-200 unit tablet Fish Oil 1,000 mg (120 - Active mg-180 mg) capsule biotin 5,000 mcg - Active disintegrating tablet tumeric ORAL CAPSULE - Active omeprazole 20 mg take 1 capsule by 20 MG - Active capsule,delayed release oral route 2 times every day before a meal Restasis 0.05 % Eye instill 1 drop by 1.00 drop - Active Dropperette ophthalmic route every 12 hours into affected eye(s) levothyroxine 100 mcg take 1 capsule 100 MCG - Active Cap (100MCG) by oral route every day Detrol LA 4 mg 24 hr Cap take 1 capsule 4 MG - Active (4MG) by oral route every day Plaquenil 200 mg tablet take 2 tablet by 400 MG - No Longer oral route every Active day Voltaren 1 % topical gel apply (2G) by - No Longer topical route 4 Active times every day to the affected area(s) Problems Condition Effective Dates Clinical Status Comments (start - stop) 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 Other specified abnormal findings of blood chemistry Primary generalized (osteo)arthritis 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 Other correction (current) drug therapy Primary generalized (osteo)arthritis 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 Primary generalized (osteo)arthritis 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 Primary generalized (osteo)arthritis Other correction (current) drug therapy Primary generalized (osteo)arthritis Other correction (current) drug therapy Primary generalized (osteo)arthritis Other correction (current) drug therapy Arthropathy, unspecified Other correction (current) drug therapy Arthropathy, unspecified 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 The mapped diagnosis code was Osteoarthrosis, localized, primary, involving hand, 715.14, added by Michelle Lr MD, with responsible provider Michelle Lr MD. Onset date 12/25/2013; last addressed on 12/25/2013. High risk drug monitoring - Active Mapped from [facility] status Chronic Conditions table on 08/09/2014 by the ICD9 to SNOMED Bulk Mapping Utility. 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 Onset date 04/21/2012; last addressed on 10/12/2013. Hand joint pain - Active Mapped from [facility] Chronic Conditions table on 06/08/2014 by the ICD9 to SNOMED Bulk Mapping Utility. The mapped diagnosis code was Pain in joint involving hand, 719.44, added by Lulu Haney NP, with responsible provider Lulu OSORIO. Onset date 04/21/2012; last addressed on 11/12/2013. Procedures Procedure Date ROUTINE VENIPUNCTURE COMPLETE CBC W/AUTO DIFF WBC RBC SED RATE, AUTOMATED C-REACTIVE PROTEIN ASSAY OF CREATININE ALANINE AMINO (ALT) (SGPT) TRANSFERASE (AST) (SGOT) OFFICE/OUTPATIENT VISIT, EST Results Test Name Date and Time Measure Units Reference Range Abnormal Flag Status Comments Panel Description: CBC Final WBC 11:24:00 5.2 10*3/uL 3.7-10.1 Final RBC 11:24:00 4.22 10*6/uL 3.50-5.50 Final HGB 11:24:00 14.3 g/dL 12.0-16.0 Final HCT 11:24:00 41.0 % 36.0-48.0 Final MCV 11:24:00 97.1 fL 80.0-100.0 Final MCH 11:24:00 33.9 pg 26.0-34.0 Final MCHC 11:24:00 34.9 g/dL 31.0-37.0 Final RDW 11:24:00 11.4 % 10.0-15.0 Final PLATELETS 11:24:00 254 10*3/uL 150-500 Final MPV 11:24:00 8.8 fL 6.0-10.0 Final ELIZABETH# 11:24:00 3.22 10*3/uL 2.10-8.00 Final LYM# 11:24:00 1.41 10*3/uL 1.00-5.00 Final MONO# 11:24:00 0.41 10*3/uL 0.10-1.00 Final EOS# 11:24:00 0.1 10*3/uL 0.0-0.5 Final BASO# 11:24:00 0.1 10*3/uL 0.0-0.2 Final ELIZABETH% 11:24:00 61.9 % 50.0-80.0 Final LYM% 11:24:00 27.1 % 25.0-50.0 Final MONO% 11:24:00 8.0 % 2.0-10.0 Final EOS% 11:24:00 1.9 % 0.0-5.0 Final BASO% 11:24:00 1.2 % 0.0-4.0 Final Panel Description: ESR Final ESR 11:24:00 3 mm/Hr 0-20 Final Panel Description: ALT Final ALT 11:24:00 31 U/L 30-65 Final Panel Description: AST Final AST 11:24:00 33 U/L 15-37 Final Panel Description: CREATININE Final CREATININE 11:24:00 0.8 mg/dL 0.6-1.2 Final eGFR 11:24:00 >60 mL/min/1.73m Final Panel Description: CRP Final CRP 11:24:00 <0.2 mg/dL 0.0-1.0 Final Advance Directives Directive Yes / No Effective Date File Name No information Encounters Encounter Practice Location Reason(s) Diagnoses Date Provider Providers Description For Visit Copied on Encounter OFFICE/OUTPA Arthritis Arthritis Abnormal Inflammatory Adeline CHEATHAM Specialist: TIENT VISIT, Health Health Lab Study polyarthropat 3201 Michelle. 57[address] [facility] (chief hyPrimary [address] [place] [address], [facility], [address] [facility] complaint) generalized [place], [facility] (osteo)arthri Mitra, logy Assoc [place], tisOther long [place], [address], term [id number], [address], (current) [place]. [place], [place], [id number], drug therapy tel:[phone]. [place] [id number] tel:[phone] tel:[phone] Provider: Michelle Lr MD, [address] [facility], [place], [place], [id number]. tel:[phone] Arthritis Arthritis Other [facility] specified kell Ward. Greg Garza abnormal 9 5794 PLLC, 5794 PLLC findings of [facility] blood [place], [place], chemistry [place], [place], [place], [place], [id number], [id number], [place]. [place] tel:[phone] tel:[phone] Arthritis Arthritis Primary [facility] Specialist: [facility] generalized kell Ward. Be Garza (osteo)arthri 9 5794 Kush, PLLC, 5794 PLLC tisOther long [facility], [facility], (current) [place], [address], drug [place], [address], [place], therapyInflam [id number], [place], [place], [id number], [place]. [address]. [place] polyarthropat tel:+ tel:[phone] tel:[phone] [id number] ng Provider: Michelle Lr MD, [address] [facility], [place], [place], [id number]. 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 Kush, PLLC, 5794 PLLC tisOther long [address] [facility], (current) [address]kwy, Dates Dr Manri[address], drug therapy [place], [address], [place], [place], [place], [place], [id number], [id number], [address]. [place]. tel:[phone] tel:[phone] tel:[phone] ng Provider: Michelle Lr MD, [address] [facility], [place], [place], [id number]. tel:[phone] Arthritis Arthritis Primary [facility] Specialist: [facility] generalized kell Ward. Be Garza (osteo)arthri 8 5794 Kush, PLL[facility], 5794 PLLC tisOther long [facility], logy [facility], (current) [place], [address]ri[address], drug therapy [place], [place] [address], [place], [id number], [place], [place], [id number], [place]. [address]. [place] tel:[phone] tel:[phone] tel:[phone] [id number] ng Provider: Michelle Lr MD, [address] [facility], [place], [place], [id number]. tel:[phone] Arthritis Arthritis Primary Mar- [facility] Referring [facility] Health generalized kell Ward. Provider: Greg Hansonosteo)arthri 7 5794 Michelle SOLIS, 5794 PLLMagalis Stockton MD, 5794 [facility], [facility], (current) [place], [place], [place], drug therapy [place], [place], [place], [id number], [place], [id number], [place]. [id number]. [place] tel:[phone] tel:[phone] tel:[phone] Arthritis Arthritis Primary Nov- [facility] Referring Health Health generalized kellian Layi. Provider: Greg israel)arthri 7 5794 Michelle SOLIS, 5794 PLLC Doreen Stockton MD, 5794 [facility], [facility], (current) [place], [place], [place], drug [place], [place], [place], [id number], [place], [id number], [place]. [id number]. [place] tel:[phone] tel:[phone] tel:[phone] Arthritis Arthritis Primary Wade- [facility] Referring Health Health generalized kell Ward. Provider: Greg Garza (osteo)arthri 7 5794 Michelle SOLIS, 5794 PLLC Doreen Stockton MD, 5794 [facility], [facility], (current) [place], [place], [place], drug [place], [place], [id number], [place], [id number], [place]. [id number]. [place] tel:+[phone] tel:[phone] tel:[phone] Arthritis Arthritis Primary July-0 [facility] Referring Health Health generalized 3-201 kellian [address]. Provider: Associates Greg (osteo)arthri 7 5794 Michelle Lr PLLC, 5794 [facility] mary Stockton MD, 5[address] [facility] [place], [facility], (current) [place], [place], [place], drug [place], [place], [place], [id number], [place], [id number], [place]. [id number]. [place] tel:+ tel:[phone] tel:[phone] Arthritis Arthritis Arthropathy, Augustine-0 [facility] Referring Health Health unspecifiedOt [address] kellian [address]. Provider: Associates Greg her correction 7 5794 Michelle Lr PLLC, 5794 PLLC (current) Mahin CHEATHAM, 5[address] [facility] [place], [facility] [place], [place], [place], [place], [place], [place], [place], [id number], [place], [id number], [place]. [id number]. [place] tel: tel:[phone] tel:[phone] Arthritis Arthritis Arthropathy, Oct-2 [facility] Referring Health Health unspecifiedOt [address] kellian [address]. Provider: Associates Associates her correction 6 5794 Michelle Lr PLLC, 5794 PLLC (current) Mahin CHEATHAM, 5794 [facility] drug [place], [facility] [place], therapyPrimar [place], [place], [place], [place] generalized [place], [place], [place], (osteo)arthri [id number], [place], [id number], tis [place]. [id number]. [place] tel:+[phone] tel:[phone] tel:[phone] Arthritis Arthritis Arthropathy, May- [facility] Referring Health Health unspecifiedPr kell Ward. Provider: Greg Garza [facility] 6 5794 Michelle Adeline PLLC, 5794 PLLC [facility] Mahin CHEATHAM, 5794 [facility] (osteo)arthri [place], [facility], tisOther long [place], [place], [place], term [place], [place], (current) [id number], [place], [id number], drug therapy [place]. [id number]. [place] tel:[phone] tel:[phone] tel:[phone] Arthritis Arthritis Arthropathy, Adeline CHEATHAM Referring [facility] Health unspecifiedOt Michelle. 5794 Provider: Greg Garza her correction 5 [facility] Michelle Adeline PLLC, 5794 PLLC (current) MD Guillermo, 5794 [facility] drug [place], [facility], therapyPrimar [place], [place], [place], y generalized [id number], [place], [place], (osteo)arthri [place]. [place], [id number], tisPostmenopa tel:[phone]. [place] usal status [id number] tel:[phone] tel:[phone] Arthritis Arthritis Apr-0 Referring [facility] Provider: Greg Garza 5 Michelle Lr PLLMagalis, 5794 WILL CHEATHAM, 5794 [facility], [place], [place], [place], [place], [place], [id number], [id number]. [place] tel:[phone] tel:[phone] Arthritis Arthritis Sep-2 Adeline CHEATHAM Referring Health Health Michelle. 5794 Provider: Greg Garza 4 [facility] Francine Garcia, PLLC, 5794 PLLC [place], [facility] [address], Dr Ar[address], [place], [place], [place], [place], [place], [id number], [address]. [place], [place]. tel:[phone], tel:[phone] [place] [address] tel:[phone] Arthritis Arthritis [facility] Provider: Associates Associates 3 Francine Garcia, PLLC, [address] PLLC [address], [place], [place], [place], [place], [address]. [place], tel:[phone], [address] [place] tel:[phone] Arthritis Arthritis [facility] PA-C Provider: Associates Associates 2 Abram. Francine Garcia, PLLC, 5794 PLLC [address] [facility] [address] Arriaga, [place], [place], [place], [place], [place], [place], [address]. [place], [place], tel:[phone], [id number], [address] [place]. tel:[phone] tel:[phone] Arthritis Arthritis [facility] PA-C June. Provider: Associates Associates 1 5794 Francine Garcai PLLC, 5794 PLLC [facility] 8 [facility], Dr Arriaga, [facility], [place], [place], [place], [address]. [place], [id number], tel:[phone], [place]. [address] [place] tel:[phone] tel:[phone] Family History Family Member Diagnosis Age At Onset Maternal grandmother Paternal grandmother Immunizations Vaccine Date Status Comments Influenza, injectable, MDCK, administered Source: Other Provider Flucelvax Quad 2017-2018Y Influenza, injectable, administered Source: Other Provider quadrivalent, split virus, 18 years or older Afluria Quad 0731-2477 Influenza, injectable, administered Note: approx ; Source: Other trivalent, split virus, 4 years Provider and older, Fluvirin 8646-8663 Flu (split) (3 yrs or older) administered Note: Invalid documented admin date was . ; Source: Other Provider Yet to receive Flu vaccine administered Source: Other Provider Pneumococcal polysaccharide administered Note: Invalid documented PPV23 admin date was . ; Source: Other Provider pneumo (2 yrs or older) (PPV23) administered Source: Source Unspecified Zoster administered Note: Invalid documented admin date was . ; Source: Other Provider Influenza, injectable, MDCK, administered Source: Other Provider preservative free, 0.5 mL dosage, Flucelvax Quad Payers Payer name Insurance type Covered green party ID Authorization(s) Medicare MB [id number] BCBS No Referral Required [id number] Social History Type Description Quantity Date Captured Comments Alcohol Use Details 2-3 weekly Caffeine Use Details coffee 3 cups per day Tobacco Use Status Never smoked tobacco Smoking Status Never smoker Non-Smoking Tobacco : No Details Available : No Details Available 2018 Use Details Sex Female Vital Signs Date / Height Weight BMI Pulse Blood Temperature Respiratory Body Head BMI Pulse Inhaled Time: Rate Pressure Rate Surface Circumference percentile Ox Ox Area 69.00 168.00 24.8 132/72 2019 in lbs 1 mm[Hg] 11:06 kg/m AM eter (2) Chief Complaint And Reason For Visit Most recent encounter only, dated '03/23/2019 11:00'. Abnormal Lab Study (chief complaint). Description: The pain severity is 4/10. Patient is experiencing generalized morning stiffness for 1 Hour. Patient denies having fever and rash. Reason For Referral Reason For Referral No information Plan Of Treatment Date Type Action Status Goal Visual Field Exam. Due on due Goal Visual Field Exam. Due on due Goal Visual Field Exam. Due on due Goal Visual Field Exam. Due on due Goal Visual Field Exam. Due on due Goal Visual Field Exam. Due on due Goal Visual Field Exam. Due on due Goal Visual Field Exam. Due on due Goal Visual Field Exam. Due on due Goal Visual Field Exam. Due on due Goal Visual Field Exam. Due on due Appointment Indy Falcon BOOKED History Of Present Illness Encounter Date Complaint History Of Present Illness Abnormal Lab Study The pain severity is 4/10. Patient is experiencing generalized morning stiffness for 1 Hour. Patient denies having fever and rash. Functional Status Date Functional Assessment No information Medications Administered Medication Instructions Dosage Effective Dates (start - stop) Status Comments No information Instructions Date Instruction Additional Information Risks/benefits of medications reviewed Call if symptoms return Discussed / Reviewed Labs continue same medication plan call if symptoms worsen call if symptoms worsen Labs ordered to check disease activity. Labs ordered to check blood counts, liver and kidney functions to monitor safety of medication. continue same medication plan Labs ordered to check disease activity. Labs ordered to check blood counts, liver and kidney functions to monitor safety of medication. call if symptoms worsen Labs ordered to check disease activity. Labs ordered to check blood counts, liver and kidney functions to monitor safety of medication. continue same medication plan call if symptoms worsen Labs ordered to check disease activity. Labs ordered to check blood counts, liver and kidney functions to monitor safety of medication. Daily range of motion exercises for symptomatic joints recommended. continue same medication plan call if symptoms worsen Daily range of motion exercises for symptomatic joints recommended. continue same medication plan call if symptoms worsen Reviewed importance of compliance/adherence to medications prescribed Labs ordered to check blood counts, liver and kidney functions to monitor safety of medication. Discussed / Reviewed Labs continue same medication plan
--- OUTSIDE RECORDS SUMMARY | 2019-05-05 12:07 | XMS REPORT | Continuity of Care Document ---
:1945 External Reference #:[id number] Author Name Michelle Norris N.P. (transmitted by agent of provider Mary Dougherty) Address [address] [place], [place] [address] Care Team Providers Name Role Phone Susanna Chinchilla MD - Internal Care Team Information Site [facility] Medicine Anmol Oconnor MD - Otolaryngology Care Team Information Site [facility]man Problems Active Problems Provider Date Essential hypertension Michelle Norris N.P. Onset: 05/17/2015 Hypothyroidism Francine Garcia M.D., FACP Onset: 02/28/2010 Note: 1984 s/p subtotal hypothyroidectomy Gastroesophageal reflux disease Francine Garcia M.D., FACP Onset: 02/28/2010 Rheumatoid arthritis Michelle Norris N.P. Onset: 03/03/2012 Note: Dr Michelle Lr ([phone]) [place]; had been on Celebrex then meloxicam (11 [...] Onset: 05/31/2018 Note: on labs drawn in [place] in 2019 and rheum suggested reduced acetaminophen; at [facility] per her primary office twelve sets of LFTs since 03/05/11 have all been normal; ALTs all under 33 and since 2014 under 25; Social History Type Date Description Comments Sex Unknown ETOH Use Currently consumes 3 - 5 per week alcohol Tobacco Use Start: Unknown Patient has never smoked Smoking Status Reviewed: 03/16/19 Patient has never smoked Exercise Exercises sporadically mowing, has a horse Type/Frequency Allergies, Adverse Reactions, Alerts Active Allergies Reaction Severity Comments Date NKDA 08/02/2016 Seasonal 11/15/2015 Inactive Allergies NKDA 02/16/2010 Medications Active Medications SIG Qnty Indications Ordering Date Provider Tramadol HCL 1 tablet three 42tabs M46.1 Michelle Jr, 03/16/2019 50mg Tablets times daily as N.P. 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 Biotin 1 tablet every 14tabs Michelle Jr, 11/06/2017 5000mcg Tablets day N.P. Levothyroxine Sodium Take One Tablet 96tabs Michelle Jr, 10/30/2016 100mcg 6 Days A Week, N.P. Tablets One And One-Half Tablets On Saturday Tolterodine Tartrate ER take 1 capsule 90caps Michelle Jr, 02/15/2010 4mg Caps daily N.P. ER 24HR Hydrochlorothiazide Take 1 Tablet 90tabs Michelle Jr, 02/15/2010 25mg Tablets Daily N.P. Tylenol 8 Hour Arthritis as needed, up [...] Mupirocin apply once daily 44gm S81.802D Michelle Norris, 01/12/2019 - 2% Ointment to wound N.P. 01/22/2019 Doxycycline Hyclate 1 by mouth twice a 20caps Michelle Xiemalia, 01/05/2019 - day x 10 days N.P. 01/15/2019 100mg Capsules Cephalexin Three Times Daily 15caps Unknown 01/03/2019 - 500mg 01/05/2019 Capsules Nitrofurantoin 1 by mouth twice a 10caps N30.00 Evonne 12/24/2018 - Macrocrystal day Prieto Galvan 12/29/2018 [...] Medication SIG Qnty Indications Ordering Provider Date Adalberto Guaman M.D. 01/21/2019 Injection Brittanirol 40MG Liz Guaman M.D. 01/21/2019 Injection Herminioomedrol 40MG Liz Guaman M.D. 10/29/2018 Injection Herminioomedrol 40MG Lzi Guaman M.D. 10/29/2018 Injection Brittanirol 40MG Liz Guaman M.D. 07/25/2018 Injection Brittanirol AALIYAH Guaman M.D. 07/25/2018 Injection Herminioomedrol 40MG Liz Guaman M.D. 04/21/2018 Injection Brittanirol AALIYAH Guaman M.D. 04/21/2018 Injection Brittanirol 40MG Liz Guaman M.D. 11/22/2017 Injection Herminioomedrol 40MG Liz Guaman M.D. 11/22/2017 Injection Immunizations CPT Code Status Date Vaccine Lot # [id number] Given 01/01/2019 Influenza Virus Vaccine, Quadrivalent, Split, Preservative Free 48792 Given 12/19/2017 Influenza Virus Vaccine, Quadrivalent, Split, [id number] Preservative Free 88244 Given 12/28/2016 Influenza Virus Vaccine, Quadrivalent, Split, [id number] Preservative Free [id number] Given 01/06/2016 Flu Vaccine NOS 38711 Given 04/30/2014 Pneumococcal Conjugate Vaccine 13 Valent For [id number] Intramuscular Use 17866 Given 01/05/2014 Influenza Virus Vaccine, Quadrivalent, Split, [id number] Preservative Free 53516 Given 12/29/2012 Hepatitis B Vaccine Adult Dosage [id number] 38112 Given 12/29/2012 Flu Vaccine Split Virus Preservative Free For [id number] Indiv 3Yr Older 18442 Given 12/29/2012 Hepatitis A Vaccine Adult Dosage [id number] 99228 Given 07/29/2012 Hepatitis B Vaccine Adult Dosage [id number] 65662 Given 06/18/2012 Hepatitis B Vaccine Adult Dosage [id number] 06861 Given 06/18/2012 Tdap - Tetanus/Diptheria/Acellular Pertussis [id number] 23173 Given 06/18/2012 Hepatitis A Vaccine Adult Dosage [id number] Q2038 Given 12/28/2011 Fluzone Vaccine [id number] Q2035 Given 01/03/2011 Afluria Vaccine 31588 Given 02/16/2010 Pneumonia Vaccine 75121 Given 02/16/2010 Influenza Virus 3Yrs & Over 14891 Given 04/07/2009 Influenza Virus Vaccine, Pandemic Formulation 98305 Given 04/07/2009 Administration Swine Flu Shot 37576 Given 03/09/2009 Influenza Virus 3Yrs & Over 30506 Given 01/12/2008 Influenza Virus 3Yrs & Over 18292 Given 01/13/2007 Influenza Virus 3Yrs & Over 42475 Given 01/13/2007 Influenza Virus 3Yrs & Over 28803 Given 10/09/2006 Zoster (Zostavax) 51570 Given 04/12/2006 Influenza Virus 3Yrs & Over 49145 Given 04/12/2006 Influenza Virus 3Yrs & Over Vital Signs Date Vital Result Comment 03/16/2019 11:51am Height 69.5 inches 5'9.50" Weight 165.00 lb Heart Rate 72 /min BP Systolic Sitting 117 mmHg BP Diastolic Sitting 71 mmHg Body Temperature 98.4 F O2 % BldC Oximetry 98 % BMI (Body Mass Index) 24.0 kg/m2 02/06/2019 8:11am Height 69.5 inches 5'9.50" Weight 162.00 lb Heart Rate 74 /min BP Systolic 118 mmHg BP Diastolic 72 mmHg Respiratory Rate 18 /min Body Temperature 98.0 F Pain Level 0 BMI (Body Mass Index) 23.6 kg/m2 Results Test Acquired Date Facility Test Result H/L Range Note Laboratory test 02/10/2019 [facility] Clotest SEE RESULT [address] [place] [address] [phone] Ua Routine 12/24/2018 [facility] Ua Specific 1.010 Jackson Ua PH 6 Ua Color dark yellow Ua Appera cloudy Ua WBC ++ Ua Protein trace Ua Glucose norm Ua Ketones - Ua Bilirubin - Ua Urobilinogen 1 Ua Nitrite - Ua Occult Blood 250 CBC Auto 10/08/2018 [facility] White Blood 5.1 10^3/uL Normal 3.5-10.[address] [place] [address] [phone] Red Blood Count 3.95 10^6/uL Normal 3.70-4.87 [...] Blood Cells % 0.0 Comp Metabolic 10/08/2018 [facility] Sodium 138 mmol/L Normal 135-145 Panel [address] [place] [address] [phone] Potassium 3.3 mmol/L Low 3.5-5.0 Chloride 100 [...] Egfr Non- 56.3 >60 Egfr 68.1 >60 2 Laboratory test 10/08/2018 [facility] C Reactive 2.42 mg/L Normal <8.01 finding [address] [facility] [place] [address] [phone] Ferritin 91.6 ng/mL Normal 11-307 Iron & Iron Binding 10/08/2018 [facility] Iron 77 g/dL Normal 50-212 [address]acity [address] [place] [address] [phone] Unsaturated Iron Binding < 271 g/dL Total Iron Binding Capacity 286 g/dL Normal 250-450 Transferrin 204 mg/dL Normal 203-362 % Iron Saturation 27 % Normal 15-55 Laboratory test finding 10/08/2018 [facility] LDH 204 U/L Normal 140-271 [address] [place] [address] [phone] Vitamin B12 > 1450 pg/mL High 180-914 3 1 SEE RESULT BELOW Name: INDY BRYSON : [address]: Be Currie MD Acct: [id number] Unit: [id number] AGE: 73 Location: ENDO Re02/10/19 SEX: F Status: REG REF SPEC: [id number] DOMINIQUE: 02/10/[address]: Be Currie MD REQ: [id number] RECD: 02/10/19 STATUS:MAX DRAKE DR: Michelle Norris B[employer]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 END OF REPORT DEPARTMENT OF PATHOLOGY, [address] [place] [address] Juan Her M.D. Director [facility] # [id number] 2 Because ethnic data is not always [...] 5 Kidney failure <15 (or dialysis) 3 Normal Range 180 to 914 Indeterminate Range 145 to 180 Deficient Range <145 Procedures Date Code Description Status 02/23/2019 04000 Removal Devitalization Tissue Wound Less Than Equal 20 Completed Square CM 02/13/2019 35687 Removal Devitalization Tissue Wound Less Than Equal 20 Completed Square CM 02/10/2019 40619 Colonoscopy Flexible Diagnostic Completed 02/10/2019 30173 Endoscopy Upper GI Biopsy Completed 02/06/2019 84495 Debridement Skin,& sq Tissue Completed 01/21/2019 43258 Inject/Drain Joint/Bursa Major W/O US Completed 10/29/2018 98476 Inject/Drain Joint/Bursa Major W/O US Completed 01/17/2018 225085629 Diabetic Foot Exam Completed 07/18/2017 [id number] Mammogram Completed 05/22/2017 349849930 Diabetic Retinal Eye Exam Completed 03/26/2017 22573717 Colonoscopy Completed 08/01/2016 [id number] Mammogram Completed 07/16/2016 [id number] Mammogram Completed 05/19/2015 17965276 Mammogram Completed 10/21/2014 54994720 Colonoscopy Completed 05/18/2014 72201468 Mammogram Completed 05/01/2013 42459661 Mammogram Completed 03/28/2012 29202433 Mammogram Completed 03/09/2011 64292872 Mammogram Completed 03/02/2010 37034710 Mammogram Completed 03/02/2010 257476654 Bone Mineral Density Test Completed 06/24/2009 64732449 Colonoscopy Completed 03/28/2000 75396109 Colonoscopy Completed Medical Devices Description No Information Available Encounters Type Date Location Provider Dx Diagnosis Office Visit 02/06/2019 [facility] Lizjamie Guaman, M25.562 [facility] Pain in right knee M25.462 Effusion, left knee M25.461 Effusion, right knee M17.0 Bilateral primary osteoarthritis of knee Office Visit 01/21/2019 10:20a [facility] Michelle Norris, I10 Essential ( primary) Medicine - Girish N.P. hypertension S81.802D Unspecified open wound, left lower leg, subsequent encounter Office 01/12/2019 [facility] Michelle S81.802D Unspecified open Visit 3:40p - Girish Norris, N.P. wound, left lower leg, subsequent encounter Office 12/24/2018 [facility] Evonne N30.00 Acute cystitis Visit 10:30a - Girish Galvan M.D. without hematuria Office 11/27/2018 [facility] Be Eden K25.9 Gastric ulcer, Visit 8:00a MD Kush unsp as acute or chronic, w/o hemor or perf K58.1 Irritable bowel syndrome with constipation K59.00 Constipation, unspecified Z80.0 Family history of malignant neoplasm of digestive organs R94.5 Abnormal results of liver function studies Office Visit 09/22/2018 [facility] Be Eden D64.9 Anemia, 2:30p MD Kush unspecified M05.79 Rheu arthritis w rheu factor mult site w/o org/sys involv K25.9 Gastric ulcer, unsp as acute or chronic, w/o hemor or perf R94.5 Abnormal results of liver function studies Assessments Date Code Description Provider 03/16/2019 M46.1 Sacroiliitis, not elsewhere Michelle Norris, N.P. classified 02/23/2019 L97.821 Non-pressure chronic ulcer of other Sydni Meade DNP , RN, part of left lower leg limited to COLLECTIONS ASSISTANT-BC breakdown of skin 02/23/2019 I87.302 Chronic venous hypertension Sydni Meade DNP, [place], (idiopathic) without complications COLLECTIONS ASSISTANT-BC of left lower extremity 02/13/2019 L97.821 Non-pressure chronic ulcer of other Sydni Meade DNP , RN, part of left lower leg limited to COLLECTIONS ASSISTANT-BC breakdown of skin 02/13/2019 I87.302 Chronic venous hypertension Sydni Meade DNP, RN, (idiopathic) without complications COLLECTIONS ASSISTANT-BC of left lower extremity 02/10/2019 K59.00 Constipation, unspecified Be Currie MD 02/10/2019 R19.7 Diarrhea, unspecified Be Currie MD 02/10/2019 K57.30 Diverticulosis of large intestine Be Currie MD without perforation or abscess without bleeding 02/10/2019 K63.89 Other specified diseases of Be Currie MD intestine 02/10/2019 K21.9 Gastro-esophageal reflux disease Be Currie MD without esophagitis 02/10/2019 R10.13 Epigastric pain Be Currie MD 02/06/2019 L97.822 Non-pressure chronic ulcer of other Sydni Meade DNP RN, part of left lower leg with fat COLLECTIONS ASSISTANT-BC layer exposed 02/06/2019 S81.802A Unspecified open wound, left lower Sydni Meade DNP RN, leg, initial encounter COLLECTIONS ASSISTANT-BC 02/06/2019 I87.302 Chronic venous hypertension Sydni Meade DNP, [place], (idiopathic) without complications COLLECTIONS ASSISTANT-BC of left lower extremity 02/06/2019 M25.562 Pain in left knee Liz Guaman M.D. 02/06/2019 M25.561 Pain in right knee Liz Guaman M.D. 02/06/2019 M25.462 Effusion, left knee Liz Guaman M.D. 02/06/2019 M25.461 Effusion, right knee Liz Guaman M.D. 02/06/2019 M17.0 Bilateral primary osteoarthritis of Liz Guaman M.D. knee 01/21/2019 I10 Essential (primary) hypertension Michelle Varn, N.P. 01/21/2019 M25.562 Pain in left knee Sidra HughesD. 01/21/2019 S81.802D Unspecified open wound, left lower Michelle Varn, N.P. leg, subsequent encounter 01/21/2019 M25.561 Pain in right knee Liz Guaman M.D. 01/21/2019 M25.462 Effusion, left knee Sidra HughesD. 01/21/2019 M25.461 Effusion, right knee Liz Guaman M.D. 01/21/2019 M17.0 Bilateral primary osteoarthritis of Liz [...] primary osteoarthritis of Liz Guaman M.D. knee 09/22/2018 D64.9 Anemia, unspecified Be Currie MD 09/22/2018 M05.79 Rheumatoid arthritis with Be Currie MD rheumatoid factor of multiple site 09/22/2018 K25.9 Gastric ulcer Be Currie MD 09/22/2018 R94.5 Abnormal results of liver function Be Currie MD studies Plan of Treatment Future Appointment(s):04/20/2019 1:40 pm - Michelle Norris, N.P. at [facility]04/20/2019 8:30 am - Liz Guaman M.D. at [facility]05/05/2019 12:30 pm - Liz Guaman M.D. at [facility]07/17/2019 9:20 am - Mcihelle Norris N.P. at [facility]04/27/2019 8:00 am - Liz Guaman M.D. at [facility] at [id number] - Michelle Norris, N.P.M46.1 Sacroiliitis, not elsewhere classifiedNew Medication:Tramadol HCL 50 mg - 1 tablet three times daily as neededComments: You have an inflammation of the joint where your pelvic bone and sacrum meet. I have prescribed Tramadol 50 mg. You may take 1 tablet every 8 hours as needed.Rest for the next week. If your pain does not slowly improve, please contact the office. Functional Status Description No Information Available Mental Status Description No Information Available Referrals Refer to Reason for Referral Status Appt Formerly [facility] Patient with left lower leg wound, referred for Sent 02/06/[address] [place] [id number] [phone]
--- OUTSIDE RECORDS SUMMARY | 2019-05-05 12:07 | XMS REPORT | Continuity of Care Document ---
:1945 External Reference #:[id number] Author Name Michelle Norris N.P. Address [address] , [place] [address] Care Team Providers Name Role Phone Susanna Chinchilla MD - Internal Care Team Information [facility] Anmol Oconnor MD - Otolaryngology Care Team Information [facility] Driver [phone] Problems Active Problems Provider Date Essential hypertension Michelle Norris N.P. Onset: 05/17/2015 Hypothyroidism Francine Garcia M.D., FACP Onset: 02/28/2010 Note: 1984 s/p subtotal hypothyroidectomy Gastroesophageal reflux disease Francine Garcia M.D., FACP Onset: 02/28/2010 Rheumatoid arthritis Michelle Norris N.P. Onset: 03/03/2012 Note: Dr Michelle Lr ([phone]) [place]; had been on Celebrex then meloxicam (11 [...] Onset: 05/31/2018 Note: on labs drawn in [place] in 2019 and rheum suggested reduced acetaminophen; at [facility] per her primary office twelve sets of [...] Lorenzo, 06/13/[address] every day POLE PEELER Probiotic 1 by mouth 30caps Michelle Varmalia, 01/17/2018 Capsules every day N.P. Biotin 1 tablet every 14tabs Michelle Varn, 11/06/2017 5000mcg Tablets day N.P. Levothyroxine Sodium Take One Tablet 96tabs Michelle Varn, 10/30/2016 100mcg 6 Days A Week, N.P. Tablets One And One-Half Tablets On Saturday Tolterodine Tartrate ER take 1 capsule 90caps Michelle Varn, 02/15/2010 4mg Caps daily N.P. ER 24HR Hydrochlorothiazide Take 1 Tablet 90tabs Michelle Varn, 02/15/2010 25mg Tablets Daily N.P. Tylenol 8 [...] Provider Date Depomedrol 40MG Liz Guaman M.D. 01/21/2019 Injection Herminioomedrol 40MG Liz Guaman M.D. 01/21/2019 Injection Brittanirol AALIYAH Guaman M.D. 10/29/2018 Injection Depomedrol AALIYAH Guaman M.D. 10/29/2018 Injection Depomedrol AALIYAH Guaman M.D. 07/25/2018 Injection Brittanirol AALIYAH Guaman M.D. 07/25/2018 Injection Brittanirol AALIYAH Guaman M.D. 04/21/2018 Injection Brittanirol AALIYAH Guaman M.D. 04/21/2018 Injection Brittanirol AALIYAH Guaman M.D. 11/22/2017 Injection Brittanirol AALIYAH Guaman M.D. 11/22/2017 Injection Immunizations CPT Code Status Date Vaccine Lot # [id number] Given 01/01/2019 Influenza Virus Vaccine, Quadrivalent, Split, Preservative Free 24786 Given 12/19/2017 Influenza Virus Vaccine, Quadrivalent, Split, [id number] Preservative Free 76074 Given 12/28/2016 Influenza Virus Vaccine, Quadrivalent, Split, [id number] Preservative Free [id number] Given 01/06/2016 Flu Vaccine NOS 60689 Given 04/30/2014 Pneumococcal Conjugate Vaccine 13 Valent For [id number] Intramuscular Use 91731 Given 01/05/2014 Influenza Virus Vaccine, Quadrivalent, Split, [id number] Preservative Free 97713 Given 12/29/2012 Hepatitis B Vaccine Adult Dosage [id number] 07078 Given 12/29/2012 Flu Vaccine Split Virus Preservative Free For [id number] Indiv 3Yr Older 72953 Given 12/29/2012 Hepatitis A Vaccine Adult Dosage [id number] 67190 Given 07/29/2012 Hepatitis B Vaccine Adult Dosage [id number] 78091 Given 06/18/2012 Hepatitis B Vaccine Adult Dosage [id number] 02613 Given 06/18/2012 Tdap - Tetanus/Diptheria/Acellular Pertussis [id number] 20282 Given 06/18/2012 Hepatitis A Vaccine Adult Dosage [id number] Q2038 Given 12/28/2011 Fluzone Vaccine [id number] Q2035 Given 01/03/2011 Afluria Vaccine 10176 Given 02/16/2010 Pneumonia Vaccine 69835 Given 02/16/2010 Influenza Virus 3Yrs & Over 15367 Given 04/07/2009 Influenza Virus Vaccine, Pandemic Formulation 84845 Given 04/07/2009 Administration Swine Flu Shot 05097 Given 03/09/2009 Influenza Virus 3Yrs & Over 91171 Given 01/12/2008 Influenza Virus 3Yrs & Over 70821 Given 01/13/2007 Influenza Virus 3Yrs & Over 78563 Given 01/13/2007 Influenza Virus 3Yrs & Over 92135 Given 10/09/2006 Zoster (Zostavax) 33813 Given 04/12/2006 Influenza Virus 3Yrs & Over 00156 Given 04/12/2006 Influenza Virus 3Yrs & Over [...] Result H/L Range Note Laboratory test 02/10/2019 [facility] Clotest SEE RESULT [address] [place] [address] [phone] Ua Routine 12/24/2018 Process Environmental Technician In House Ua Specific 1.010 [place] Ua PH 6 Ua Color dark yellow Ua Appera cloudy Ua WBC ++ Ua Protein trace Ua Glucose norm Ua Ketones - Ua Bilirubin - Ua Urobilinogen 1 Ua Nitrite - Ua Occult Blood 250 CBC Auto 10/08/2018 [facility] White Blood 5.1 10^3/uL Normal 3.5-10.[address] [place] [address] [phone] Red Blood Count 3.95 10^6/uL Normal 3.70-4.87 [...] Blood Cells % 0.0 Comp Metabolic 10/08/2018 [facility] Sodium 138 mmol/L Normal 135-145 Panel [address] [place] [address] [phone] Potassium 3.3 mmol/L Low 3.5-5.0 Chloride 100 [...] Egfr 68.1 >60 2 Laboratory test 10/08/2018 [facility] C Reactive 2.42 mg/L Normal <8.01 finding [address] [facility] [address] [phone] Ferritin 91.6 ng/mL Normal 11-307 Iron & Iron Binding 10/08/2018 [facility] Iron 77 g/dL Normal 50-[address] [place] [address] [phone] Unsaturated Iron Binding < 271 g/dL Total Iron Binding Capacity 286 g/dL Normal 250-450 Transferrin 204 mg/dL Normal 203-362 % Iron Saturation 27 % Normal 15-55 Laboratory test finding 10/08/2018 [facility] LDH 204 U/L Normal 140-[address] [place] [address] [phone] Vitamin B12 > 1450 pg/mL High 180-914 3 1 SEE RESULT BELOW Name: INDY BRYSON : [address]: Be Currie MD Acct: [id number] Unit: [id number] AGE: 73 Location: ENDO Re02/10/19 SEX: F Status: REG REF SPEC: [id number] DOMINIQUE: 02/10/[address] [facility] [address]: Be Currie MD REQ: [id number] RECD: 02/10/19 STATUS:MAX DRAKE DR: Michelle Norris POLE PEELER _ SOURCE: GAS ANTRUM SPDESC: ORDERED: Clotest Procedure Result Reported Site Clotest Final 02/11/19- 0759 ML Clotest Negative * ML - Main Lab . END OF REPORT DEPARTMENT OF PATHOLOGY, [address], [place], [place] [address] Juan Her M.D. Director [facility] # [id number] 2 Because ethnic data is not always [...] <145 Procedures Date Code Description Status 02/23/2019 30809 Removal Devitalization Tissue Wound Less Than Equal 20 Completed Square CM 02/13/2019 26872 Removal Devitalization Tissue Wound Less Than Equal 20 Completed Square CM 02/10/2019 87686 Colonoscopy Flexible Diagnostic Completed 02/10/2019 81067 Endoscopy Upper GI Biopsy Completed 02/06/2019 67140 Debridement Skin,& sq Tissue Completed 01/21/2019 77196 Inject/Drain Joint/Bursa Major W/O US Completed 10/29/2018 90884 Inject/Drain Joint/Bursa Major W/O US Completed 01/17/2018 067195021 Diabetic Foot Exam Completed 07/18/2017 22440405 Mammogram Completed 05/22/2017 294026438 Diabetic Retinal Eye Exam Completed 03/26/2017 48344383 Colonoscopy Completed 08/01/2016 64796428 Mammogram Completed 07/16/2016 59601269 Mammogram Completed 05/19/2015 81262746 Mammogram Completed 10/21/2014 14534732 Colonoscopy Completed 05/18/2014 43032319 Mammogram Completed 05/01/2013 55585242 Mammogram Completed 03/28/2012 02093105 Mammogram Completed 03/09/2011 69419803 Mammogram Completed 03/02/2010 69029213 Mammogram Completed 03/02/2010 126351236 Bone Mineral Density Test Completed 06/24/2009 86479943 Colonoscopy Completed 03/28/2000 89788858 Colonoscopy Completed Medical Devices Description No Information Available Encounters Type Date Location Provider Dx Diagnosis Office Visit 02/06/2019 [facility] Liz Deniz, M25.562 [facility] in right knee M25.462 Effusion, left knee M25.461 Effusion, right knee M17.0 Bilateral primary osteoarthritis of knee Office Visit 01/21/2019 10:20a [facility] Internal Michelle Norris, I10 Essential ( primary) Medicine - Ccmob N.P. hypertension S81.802D Unspecified open wound, left lower leg, subsequent encounter Office 01/12/2019 [facility] Internal Medicine Michelle S81.802D Unspecified open Visit 3:40p - Girish Norris, N.P. wound, left lower leg, subsequent encounter Office 12/24/2018 [facility] Internal Medicine Evonne N30.00 Acute cystitis Visit 10:30a - Girish Galvan M.D. without hematuria Office 11/27/2018 [facility] Gastroenterology Be Eden K25.9 Gastric ulcer, Visit 8:00a MD Kush unsp as acute or chronic, w/o hemor or perf K58.1 Irritable bowel syndrome with constipation K59.00 Constipation, unspecified Z80.0 Family history of malignant neoplasm of digestive organs R94.5 Abnormal results of liver function studies Office Visit 09/22/2018 [facility] Gastroenterology Be Eden D64.9 Anemia, 2:30p MD Kush unspecified M05.79 Rheu arthritis w rheu factor mult site w/o org/sys involv K25.9 Gastric ulcer, unsp as acute or chronic, w/o hemor or perf R94.5 Abnormal results of liver function studies Assessments Date Code Description Provider 03/16/2019 M46.1 Sacroiliitis, not elsewhere Michelle Norris, N.P. classified 03/16/2019 M20.42 Other hammer toe(s) (acquired), Michelle Norris N.P. left foot 02/23/2019 L97.821 Non-pressure chronic ulcer of other Sydni Meade DNP , RN, part of left lower leg limited to SEISMIC PROSPECTING OBSERVER HELPER-BC breakdown of skin 02/23/2019 I87.302 Chronic venous hypertension Sydni Meade DNP, RN, (idiopathic) without complications SEISMIC PROSPECTING OBSERVER HELPER-BC of left lower extremity 02/13/2019 L97.821 Non-pressure chronic ulcer of other Sydni Meade DNP , RN, part of left lower leg limited to SEISMIC PROSPECTING OBSERVER HELPER-BC breakdown of skin 02/13/2019 I87.302 Chronic venous hypertension Sydni Meade DNP, RN, (idiopathic) without complications SEISMIC PROSPECTING OBSERVER HELPER-BC of left lower extremity 02/10/2019 K59.00 Constipation, [...] part of left lower leg with fat SEISMIC PROSPECTING OBSERVER HELPER-BC layer exposed 02/06/2019 S81.802A Unspecified open wound, left lower Sydni Meade DNP RN, leg, initial encounter SEISMIC PROSPECTING OBSERVER HELPER-BC 02/06/2019 I87.302 Chronic venous hypertension Sydni Meade DNP, [place], (idiopathic) without complications SEISMIC PROSPECTING OBSERVER HELPER-BC of left lower extremity 02/06/2019 M25.562 Pain in left knee Liz Guaman M.D. 02/06/2019 M25.561 Pain in right knee Liz Guaman M.D. 02/06/2019 M25.462 Effusion, left knee Liz Guaman M.D. 02/06/2019 M25.461 Effusion, right knee Liz Guaman M.D. 02/06/2019 M17.0 Bilateral primary osteoarthritis of Liz Guaman M.D. knee 01/21/2019 I10 Essential (primary) hypertension Michelle Varn, N.P. 01/21/2019 M25.562 Pain in left knee Lizjamie Guaman, M.D. 01/21/2019 S81.802D Unspecified open wound, left lower Michelle Varn, N.P. leg, subsequent encounter 01/21/2019 M25.561 Pain in right knee Lizjaime Guaman M.D. 01/21/2019 M25.462 Effusion, left knee Lizjamie Guaman, M.D. 01/21/2019 M25.461 Effusion, right knee Jordan Hughes.D. 01/21/2019 M17.0 Bilateral primary osteoarthritis of Liz [...] M.D. 10/29/2018 M25.562 Pain in left knee Jordan Hughes.D. 10/29/2018 M25.461 Effusion, right knee Liz Guaman M.D. 10/29/2018 M25.462 Effusion, left knee Sidra HughesD. 10/29/2018 M17.0 Bilateral primary osteoarthritis of Liz Guaman M.D. knee 09/22/2018 D64.9 Anemia, unspecified Be Currie MD 09/22/2018 M05.79 Rheumatoid arthritis with Be Currie MD rheumatoid factor of multiple site 09/22/2018 K25.9 Gastric ulcer Be Currie MD 09/22/2018 R94.5 Abnormal results of liver function Be Currie MD studies Plan of Treatment Future Appointment(s):04/20/2019 1:40 pm - Michelle Norris N.P. at [facility] Internal Medicine - [facility]04/20/2019 8:30 am - Liz Guaman M.D. at [facility]05/05/2019 12:30 pm - Liz Guaman M.D. at [facility]07/17/2019 9:20 am - Michelle Norris N.P. at [facility] Internal Medicine - [facility]04/27/2019 8:00 am - Liz Guaman M.D. at [facility]10/2018 - Liz Guaman M.D.M25.562 Pain in left kneeFollow up:Follow up: 7- 10 days before gfeksfwI97.561 Pain in right kneeM25.462 Effusion, left kneeM25.461 Effusion, right kneeM17.0 Bilateral primary osteoarthritis of knee Functional Status Description No Information Available Mental Status Description No Information Available Referrals Refer to Reason for Referral Status Appt Date Wound Clinic Patient with left lower leg wound, referred for Sent 02/06/[address] [place] [address] [phone]
--- OUTSIDE RECORDS SUMMARY | 2019-05-05 12:07 | XMS REPORT | Continuity of Care Document ---
:1945 External Reference #:[id number] Author Name Liz Guaman M.D. (transmitted by agent of provider Leatha Johnson) Address [address] [facility] [place] [address] Care Team Providers Name Role Phone Susanna Chinchilla MD - Internal Care Team Information [employer] Medicine Anmol Oconnor MD - Otolaryngology Care Team Information [employer] Problems Active Problems Provider Date Essential hypertension Michelle Norris N.P. Onset: 05/17/2015 Hypothyroidism Francine Garcia M.D., FACP Onset: 02/28/2010 Note: 1983 s/p subtotal hypothyroidectomy Gastroesophageal reflux disease Francine Garcia M.D., FACP Onset: 02/28/2010 Rheumatoid arthritis Michelle Norris N.Charmaine. 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 Onset: of multiple sites Localized, primary osteoarthritis Liz Guaman M.D. Onset: 11/22/2017 Gastric ulcer Be Currie MD Onset: 02/11/2017 Note: high fundus after yrs of meloxicam Diverticular disease of colon Be Currie MD Onset: 09/22/2009 Note: Virtual colonoscopy 10/21/14 was a technical failure due to redundancy and fluid retention. Abnormal liver function Be Currie MD Onset: 05/31/2018 Note: on labs drawn in [place] in 2019 and rheum suggested reduced acetaminophen; at [facility] per her primary office twelve sets of [...] Lorenzo, 06/13/[address] every day SAND CARRIER Probiotic 1 by mouth 30caps Michelle Jr, 01/17/2018 Capsules every day N.P. Biotin 1 tablet every 14tabs Michelle Varmalia, 11/06/2017 5000mcg Tablets day N.P. Levothyroxine Sodium [...] SIG Qnty Indications Ordering Provider Date Adalberto 40MG Liz Guaman M.D. 01/21/2019 Injection Brittanirol 40MG Liz Guaman M.D. 01/21/2019 Injection Herminioomedrol 40MG Liz Guaman M.D. 10/29/2018 Injection Herminioomedrol 40MG Liz Guaman M.D. 10/29/2018 Injection Herminioomedrol 40MG Liz Guaman M.D. 07/25/2018 Injection Brittanirol AALIYAH Guaman M.D. 07/25/2018 Injection Brittanirol AALIYAH Guaman M.D. 04/21/2018 Injection Brittanirol AALIYAH Guaman M.D. 04/21/2018 Injection Adalberto 40MG Liz Guaman M.D. 11/22/2017 Injection Brittanirol 40MG Liz Guaman M.D. 11/22/2017 Injection Immunizations CPT Code Status Date Vaccine Lot # [id number] Given 01/01/2019 Influenza Virus Vaccine, Quadrivalent, Split, Preservative Free 70309 Given 12/19/2017 Influenza Virus Vaccine, Quadrivalent, Split, [id number] Preservative Free 57895 Given 12/28/2016 Influenza Virus Vaccine, Quadrivalent, Split, [id number] Preservative Free [id number] Given 01/06/2016 Flu Vaccine NOS 21053 Given 04/30/2014 Pneumococcal Conjugate Vaccine 13 Valent For [id number] Intramuscular Use 72717 Given 01/05/2014 Influenza Virus Vaccine, Quadrivalent, Split, [id number] Preservative Free 53753 Given 12/29/2012 Hepatitis B Vaccine Adult Dosage [id number] 50710 Given 12/29/2012 Flu Vaccine Split Virus Preservative Free For [id number] Indiv 3Yr Older 07382 Given 12/29/2012 Hepatitis A Vaccine Adult Dosage [id number] 22432 Given 07/29/2012 Hepatitis B Vaccine Adult Dosage [id number] 13000 Given 06/18/2012 Hepatitis B Vaccine Adult Dosage [id number] 65009 Given 06/18/2012 Tdap - Tetanus/Diptheria/Acellular Pertussis [id number] 77063 Given 06/18/2012 Hepatitis A Vaccine Adult Dosage [id number] Q2038 Given 12/28/2011 Fluzone Vaccine [id number] Q2035 Given 01/03/2011 Afluria Vaccine 48933 Given 02/16/2010 Pneumonia Vaccine 05812 Given 02/16/2010 Influenza Virus 3Yrs & Over 36709 Given 04/07/2009 Influenza Virus Vaccine, Pandemic Formulation 29756 Given 04/07/2009 Administration Swine Flu Shot 24781 Given 03/09/2009 Influenza Virus 3Yrs & Over 69954 Given 01/12/2008 Influenza Virus 3Yrs & Over 53156 Given 01/13/2007 Influenza Virus 3Yrs & Over 07983 Given 01/13/2007 Influenza Virus 3Yrs & Over 49906 Given 10/09/2006 Zoster (Zostavax) 51449 Given 04/12/2006 Influenza Virus 3Yrs & Over 25342 Given 04/12/2006 Influenza Virus 3Yrs & Over [...] Result H/L Range Note Laboratory test 02/10/2019 [facility] Clotest SEE RESULT [address] [place] [address] [phone] Ua Routine 12/24/2018 [employer] In House Ua Specific 1.010 Chula Ua PH 6 Ua Color dark yellow Ua Appera cloudy Ua WBC ++ Ua Protein trace Ua Glucose norm Ua Ketones - Ua Bilirubin - Ua Urobilinogen 1 Ua Nitrite - Ua Occult Blood 250 CBC Auto 10/08/2018 [facility] White Blood 5.1 10^3/uL Normal 3.5-10.[address] [place] [address] [phone] Red Blood Count 3.95 10^6/uL Normal 3.70-4.87 [...] Blood Cells % 0.0 Comp Metabolic 10/08/2018 [facility] Sodium 138 mmol/L Normal 135-145 Panel [address] [place] [address] [phone] Potassium 3.3 mmol/L Low 3.5-5.0 Chloride 100 [...] Egfr 68.1 >60 2 Laboratory test 10/08/2018 [facility] C Reactive 2.42 mg/L Normal <8.01 finding [address] [facility] [place] [address] [phone] Ferritin 91.6 ng/mL Normal 11-307 Iron & Iron Binding 10/08/2018 [facility] Iron 77 g/dL Normal 50-212 [address]acity [address] [place] [address] [phone] Unsaturated Iron Binding < 271 g/dL Total Iron Binding Capacity 286 g/dL Normal 250-450 Transferrin 204 mg/dL Normal 203-362 % Iron Saturation 27 % Normal 15-55 Laboratory test finding 10/08/2018 [facility] LDH 204 U/L Normal 140-271 [address] [place] [address] [phone] Vitamin B12 > 1450 pg/mL High 180-914 3 1 SEE RESULT BELOW Name: INDY BRYSON : [address]: Be Currie MD Acct: [id number] Unit: [id number] AGE: 73 Location: ENDO Re02/10/19 SEX: F Status: REG REF SPEC: [id number] DOMINIQUE: 02/10/[address]: Be Currie MD REQ: [id number] RECD: 02/10/19 STATUS:MAX DRAKE DR: Michelle Norris SAND CARRIER _ SOURCE: GAS ANTRUM SPDESC: ORDERED: Clotest Procedure Result Reported Site Clotest Final 02/11/19- 0759 ML Clotest Negative * ML - Main Lab . END OF REPORT DEPARTMENT OF PATHOLOGY, [address] [place] [address] Juan Her M.D. Director [facility] # [id number] 2 Because ethnic data is not always [...] <145 Procedures Date Code Description Status 02/23/2019 10757 Removal Devitalization Tissue Wound Less Than Equal 20 Completed Square CM 02/13/2019 93161 Removal Devitalization Tissue Wound Less Than Equal 20 Completed Square CM 02/10/2019 80802 Colonoscopy Flexible Diagnostic Completed 02/10/2019 53608 Endoscopy Upper GI Biopsy Completed 02/06/2019 82762 Debridement Skin,& sq Tissue Completed 01/21/2019 57847 Inject/Drain Joint/Bursa Major W/O US Completed 10/29/2018 11661 Inject/Drain Joint/Bursa Major W/O US Completed 01/17/2018 282718148 Diabetic Foot Exam Completed 07/18/2017 53351694 Mammogram Completed 05/22/2017 296693259 Diabetic Retinal Eye Exam Completed 03/26/2017 91845910 Colonoscopy Completed 08/01/2016 24360038 Mammogram Completed 07/16/2016 65168482 Mammogram Completed 05/19/2015 56175381 Mammogram Completed 10/21/2014 20131934 Colonoscopy Completed 05/18/2014 32365437 Mammogram Completed 05/01/2013 24619852 Mammogram Completed 03/28/2012 34922380 Mammogram Completed 03/09/2011 32955324 Mammogram Completed 03/02/2010 90945457 Mammogram Completed 03/02/2010 329755631 Bone Mineral Density Test Completed 06/24/2009 19736958 Colonoscopy Completed 03/28/2000 83302990 Colonoscopy Completed Medical Devices Description No Information Available Encounters Type Date Location Provider Dx Diagnosis Office Visit 03/16/2019 [facility] Internal Michelle Norris, M46.1 Sacroiliitis, not 11:40a Medicine - Ccmob N.P. elsewhere classified M20.42 Other hammer toe(s) (acquired), left foot Office Visit 02/06/2019 8:00a [facility] Liz Guaman, M25.562 Pain in left at [place] M.D. knee M25.561 Pain in right knee M25.462 Effusion, left knee M25.461 Effusion, right knee M17.0 Bilateral primary osteoarthritis of knee Office Visit 01/21/2019 10:20a [facility] Internal Michelle Norris, I10 Essential ( primary) Medicine - Ccmob N.P. hypertension S81.802D Unspecified open wound, left lower leg, subsequent encounter Office 01/12/2019 [facility] Internal Medicine Michelle S81.802D Unspecified open Visit 3:40p - Ccmelida Varn, N.P. wound, left lower leg, subsequent encounter Office 12/24/2018 [facility] Internal Medicine Evonne N30.00 Acute cystitis Visit 10:30a - Girish Galvan M.D. without hematuria Office 11/27/2018 [facility] Gastroenterology Be Eedn K25.9 Gastric ulcer, Visit 8:00a MD Kush unsp as acute or chronic, w/o hemor or perf K58.1 Irritable bowel syndrome with constipation K59.00 Constipation, unspecified Z80.0 Family history of malignant neoplasm of digestive organs R94.5 Abnormal results of liver function studies Assessments Date Code Description Provider 03/16/2019 M46.1 Sacroiliitis, not elsewhere Michelle Norris, N.P. classified 03/16/2019 M20.42 Other hammer toe(s) (acquired), Mcihelle Norris, N.P. left foot 02/23/2019 L97.821 Non-pressure chronic ulcer of other Sydni Meade DNP , RN, part of left lower leg limited to [employer]-BC breakdown of skin 02/23/2019 I87.302 Chronic venous hypertension Sydin Meade DNP, [place], (idiopathic) without complications [employer]-BC of left lower extremity 02/13/2019 L97.821 Non-pressure chronic ulcer of other Sydni Meade DNP RN, part of left lower leg limited to [employer]ER-BC breakdown of skin 02/13/2019 I87.302 Chronic venous hypertension Sydni Meade DNP, RN, (idiopathic) without complications [employer]-BC of left lower extremity 02/10/2019 K59.00 Constipation, [...] part of left lower leg with fat [employer]IN[employer]ING EQUIPMENT TENDER-BC layer exposed 02/06/2019 S81.802A Unspecified open wound, left lower Sydni Meade DNP RN, leg, initial encounter [employer]ER-BC 02/06/2019 I87.302 Chronic venous hypertension Sydni Meade DNP, [place], (idiopathic) without complications [employer]-BC of left lower extremity 02/06/2019 M25.562 Pain in left knee Liz Guaman M.D. 02/06/2019 M25.561 Pain in right knee Liz Guaman M.D. 02/06/2019 M25.462 Effusion, left knee Liz Guaman M.D. 02/06/2019 M25.461 Effusion, right knee Liz Guaman M.D. 02/06/2019 M17.0 Bilateral primary osteoarthritis of Liz Guaman M.D. knee 01/21/2019 I10 Essential (primary) hypertension Michelle Norris, N.P. 01/21/2019 M25.562 Pain in left knee Sidra HughesD. 01/21/2019 S81.802D Unspecified open wound, left lower Michelle Norris, N.P. leg, subsequent encounter 01/21/2019 M25.561 Pain in right knee Liz Guaman M.D. 01/21/2019 M25.462 Effusion, left knee Sidra HughesD. 01/21/2019 M25.461 Effusion, right knee Liz Guaman M.D. 01/21/2019 M17.0 Bilateral primary osteoarthritis of Liz Guaman M.D. knee 01/12/2019 S81.802D Unspecified open wound, left lower Michelle Xien, N.P. leg, subsequent encounter 12/24/2018 N30.00 Acute [...] M.D. 10/29/2018 M25.562 Pain in left knee Sidra HughesD. 10/29/2018 M25.461 Effusion, right knee Liz Guaman M.D. 10/29/2018 M25.462 Effusion, left knee Liz Guaman M.D. 10/29/2018 M17.0 Bilateral primary osteoarthritis of Liz Guaman M.D. knee Plan of Treatment Future Appointment(s):04/20/2019 1:40 pm - Michelle Norris N.P. at [facility] Internal Medicine - [facility]04/20/2019 8:30 am - Liz Guaman M.D. at [facility]05/05/2019 12:30 pm - Liz Guaman M.D. at [facility] at [facility]3407/17/2019 9:20 am - Michelle Norris N.P. at [facility] Internal Medicine - [facility]04/27/2019 8:00 am - Liz Guaman M.D. at [facility] at F[facility]0410/2018 - Liz Guaman M.D.M25.562 Pain in left kneeFollow up:Follow up: 7- 10 days before upwzdsjJ24.561 Pain in right kneeM25.462 Effusion, left kneeM25.461 Effusion, right kneeM17.0 Bilateral primary osteoarthritis of knee Functional Status Description No Information Available Mental Status Description No Information Available Referrals Refer to Dr Reason for Referral Status Appt [facility] Patient with left lower leg wound, referred for Sent 02/06/[address] [place] [address] [phone]
--- OUTSIDE RECORDS SUMMARY | 2019-05-05 12:07 | XMS REPORT | Continuity of Care Document ---
:1945 External Reference #:[id number] Author Name Liz Guaman M.D. (transmitted by agent of provider Fifi Mcgee) Address [address] [place] [address] Care Team Providers Name Role Phone Susanna Chinchilla MD - Internal Care Team Information Manager Social Services Medicine Anmol Oconnor MD - Otolaryngology Care Team Information Manager Social Services Problems Active Problems Provider Date Essential hypertension Michelle Norris N.P. Onset: 05/17/2015 Hypothyroidism Francine Garcia M.D., FACP Onset: 02/28/2010 Note: 1983 s/p subtotal hypothyroidectomy Gastroesophageal reflux disease Farncine Garcia M.D., FACP Onset: 02/28/2010 Rheumatoid arthritis Michelle Norris N.Charmaine. Onset: 03/03/2012 Note: Dr Michelle Lr ([phone]) [place]; had been on Celebrex then meloxicam (11 [...] Onset: 05/31/2018 Note: on labs drawn in [place] in 2019 and rheum suggested reduced acetaminophen; [place] [facility] twelve sets of LFTs since 03/05/11 have all been normal; ALTs all under 33 and since 2015 under 25; Social History Type Date Description Comments Sex Unknown ETOH Use Currently consumes 3 - 5 per week alcohol Tobacco Use Start: Unknown Patient has never smoked Smoking Status Reviewed: 04/27/19 Patient has never smoked Exercise Exercises sporadically mowing, has a horse Type/Frequency Allergies, Adverse Reactions, Alerts Active Allergies Reaction Severity Comments Date NKDA 08/02/2016 Seasonal 11/15/2015 Inactive Allergies NKDA 02/16/2010 Medications Active Medications SIG Qnty Indications Ordering Date Provider Potassium Chloride take once 7units Liz Guaman, 04/24/2019 20Meq Packet daily for 7 M.D. days Tramadol HCL 1 tablet three 42tabs M46.1 Michelle Varmalia, 03/16/2019 50mg Tablets times daily as N.P. needed Omeprazole 2 by mouth 180caps Anuradha 06/13/[address] every day Carrie Lorenzo NP Probiotic 1 by mouth 30caps Michelle Varmalai, 01/17/2018 Capsules every day N.P. Biotin 1 [...] Michelle Varn, 02/15/2010 25mg Tablets Daily N.P. Restasis tid [...] 1 by mouth twice a 10caps N30.00 [facility] 12/24/2018 - Macrocrystal day Prieto Galvan 12/29/2018 100mg Capsules Macrobid 1 cap twice a day 10caps [facility] 12/24/2018 - 100mg Capsules X 5 days [...] Depomedrol 40MG Liz Guaman M.D. 01/21/2019 Injection Depomedrol 40MG Liz Guaman M.D. 01/21/2019 Injection Depomedrol 40MG Liz Guaman M.D. 10/29/2018 Injection Brittanirol 40MG Liz Guaman M.D. 10/29/2018 Injection Depomedrol 40MG Liz Guaman M.D. 07/25/2018 Injection Depomedrol 40MG Liz Guaman M.D. 07/25/2018 Injection Depomedrol 40MG Liz Guaman M.D. 04/21/2018 Injection Depomedrol 40MG Liz Guaman M.D. 04/21/2018 Injection Depomedrol 40MG Liz Guaman M.D. 11/22/2017 Injection Depomedrol 40MG Liz Guaman M.D. 11/22/2017 Injection Immunizations CPT Code Status Date Vaccine Lot # [id number] Given 01/01/2019 Influenza Virus Vaccine, Quadrivalent, Split, Preservative Free 37582 Given 12/19/2017 Influenza Virus Vaccine, Quadrivalent, Split, [id number] Preservative Free 16815 Given 12/28/2016 Influenza Virus Vaccine, Quadrivalent, Split, [id number] Preservative Free [id number] Given 01/06/2016 Flu Vaccine NOS 05845 Given 04/30/2014 Pneumococcal Conjugate Vaccine 13 Valent For [id number] Intramuscular Use 07766 Given 01/05/2014 Influenza Virus Vaccine, Quadrivalent, Split, [id number] Preservative Free 56150 Given 12/29/2012 Hepatitis B Vaccine Adult Dosage [id number] 65095 Given 12/29/2012 Flu Vaccine Split Virus Preservative Free For [id number] Indiv 3Yr Older 32307 Given 12/29/2012 Hepatitis A Vaccine Adult Dosage [id number] 18475 Given 07/29/2012 Hepatitis B Vaccine Adult Dosage [id number] 67139 Given 06/18/2012 Hepatitis B Vaccine Adult Dosage [id number] 07400 Given 06/18/2012 Tdap - Tetanus/Diptheria/Acellular Pertussis [id number] 97206 Given 06/18/2012 Hepatitis A Vaccine Adult Dosage [id number] Q2038 Given 12/28/2011 Fluzone Vaccine [id number] Q2035 Given 01/03/2011 Afluria Vaccine 10358 Given 02/16/2010 Pneumonia Vaccine 30867 Given 02/16/2010 Influenza Virus 3Yrs & Over 29611 Given 04/07/2009 Influenza Virus Vaccine, Pandemic Formulation 28067 Given 04/07/2009 Administration Swine Flu Shot 56817 Given 03/09/2009 Influenza Virus 3Yrs & Over 34309 Given 01/12/2008 Influenza Virus 3Yrs & Over 63089 Given 01/13/2007 Influenza Virus 3Yrs & Over 69807 Given 01/13/2007 Influenza Virus 3Yrs & Over 18266 Given 10/09/2006 Zoster (Zostavax) 65315 Given 04/12/2006 Influenza Virus 3Yrs & Over 66438 Given 04/12/2006 Influenza Virus 3Yrs & Over Vital Signs Date Vital Result Comment 04/27/2019 8:03am Height 69.5 inches 5'9.50" Weight 168.00 lb Heart Rate 72 /min BP Systolic 122 mmHg BP Diastolic 74 mmHg Body Temperature 97.9 F Pain Level 4 BMI (Body Mass Index) 24.5 kg/m2 04/20/2019 1:37pm Height 69.5 inches 5'9.50" Weight 168.38 lb Heart Rate 63 /min BP Systolic Sitting 130 mmHg BP Diastolic Sitting 81 mmHg Body Temperature 97.6 F O2 % BldC Oximetry 99 % BMI (Body Mass Index) 24.5 kg/m2 Results Test Acquired Date Facility Test Result H/L Range Note Urinalysis Profile 04/20/2019 [facility] Urine Color Yellow [address] [place] [address] [phone] Urine Appearance Cloudy Urine Specific [place] 1.009 Low 1.010-1.030 Urine pH 6.0 Normal [...] Epithelial Cells Present Abnormal Absent Inr/Protime 04/20/2019 [facility] Inr 0.94 Normal 0.82-1.[address] [place] [address] [phone] Laboratory test 04/20/2019 [facility] Partial 33.7 Normal 26.0 -38.[address] [place] [address] Time PTT [phone] CBC Auto Diff 04/20/2019 [facility] White Blood 5.6 10^3/uL Normal 3.5-10.[address] [place] [address] [phone] Red Blood Count 3.97 10^6/uL Normal 3.70-4.87 [...] Blood Cells % 0.1 Basic Metabolic 04/20/2019 [facility] Sodium 139 mmol/L Normal 135-145 [place] [address] [phone] Potassium 3.1 mmol/L Low 3.5-5.0 Chloride 98 mmol/L Low 101-111 Co2 Carbon Dioxide 33 mmol/L High 22-32 Anion Gap 8 mmol/L Normal 2-11 Glucose 81 mg/dL Normal 70-100 Blood Urea Nitrogen 14 mg/dL Normal 6-24 Creatinine 0.72 mg/dL Normal 0.51-0.95 BUN/Creatinine Ratio 19.4 Normal 8-20 Calcium 9.5 mg/dL Normal 8.6-10.3 Egfr Non- 79.2 >60 Egfr 95.8 >60 2 Laboratory 04/20/2019 [facility] TSH (Thyroid 1.18 Normal 0.34 -5.[address] Stim Horm) mcIU/[place] [address] [phone] Free T4 (Free Thyroxine) 1.95 ng/dL High 0.61-1.12 Type & Screen 04/20/2019 [facility] Patient Blood Type A Positive [address] [place], [place] [address] [phone] Antibody Screen NEGATIVE Urine Culture And 04/20/2019 [facility] Urine Culture SEE RESULT [address] [place] [address] [phone] Laboratory test 02/10/2019 [facility] Clotest SEE RESULT [address] [place] [address] [phone] Ua Routine 12/24/2018 [employer] In House Ua Specific 1.010 [place] Ua PH 6 Ua Color dark yellow [...] [address]: Liz Guaman MD Acct: [id number] Unit: [id number] AGE: 73 Location: PAT Re04/20/19 SEX: F Status: REG REF SPEC: [id number] DOMINIQUE: 04/20/19-[address] [facility] [address]: Liz Guaman MD REQ: [id number] RECD: 04/20/19-1212 STATUS: MAX DRAKE DR: Michelle Norris FIELD CANE SCALER _ SOURCE: URINE SPDESC: ORDERED: Urine Culture QUERIES: Urine Source: Clean Catch Procedure Result Reported Site Urine Culture Final 04/21/19- 1023 ML No growth of clinically significant organisms * ML - Main Lab . END OF REPORT DEPARTMENT OF PATHOLOGY, [address] [place] [address] Juan Her M.D. Director DG # [id number] 4 SEE RESULT BELOW Name: INDY BRYSON : [address]: Be Currie MD Acct: [id number] Unit: [id number] AGE: 73 Location: ENDO Re02/10/19 SEX: F Status: REG REF SPEC: [id number] DOMINIQUE: 02/10/[address] [facility] [address]: Be Currie MD REQ: [id number] RECD: 02/10/19 STATUS:MAX DRAKE DR: Michelle Norris FIELD CANE SCALER _ SOURCE: GAS ANTRUM SPDESC: ORDERED: Clotest Procedure Result Reported Site Clotest Final 02/11/19- 0759 ML Clotest Negative * ML - Main Lab . END OF REPORT DEPARTMENT OF PATHOLOGY, [address] [place] [address] Juan Her M.D. Director [facility] # [id number] Procedures Date Code Description Status 04/27/2019 Inject/Drain Joint/Bursa Major W/O US Completed 02/23/2019 28330 Removal Devitalization Tissue Wound Less Than Equal 20 Completed Square CM 02/13/2019 79345 Removal Devitalization Tissue Wound Less Than Equal 20 Completed Square CM 02/10/2019 17867 Colonoscopy Flexible Diagnostic Completed 02/10/2019 45076 Endoscopy Upper GI Biopsy Completed 02/06/2019 33266 Debridement Skin,& sq Tissue Completed 01/21/201953990 Inject/Drain Joint/Bursa Major W/O US Completed 10/29/201868241 Inject/Drain Joint/Bursa Major W/O US Completed 01/17/2018 391427973 Diabetic Foot Exam Completed 07/18/2017 62480307 Mammogram Completed 05/22/2017 339091849 Diabetic Retinal Eye Exam Completed 03/26/2017 79595727 Colonoscopy Completed 08/01/2016 02052284 Mammogram Completed 07/16/2016 46800820 Mammogram Completed 05/19/2015 03194337 Mammogram Completed 10/21/2014 69764753 Colonoscopy Completed 05/18/2014 34772058 Mammogram Completed 05/01/2013 31611096 Mammogram Completed 03/28/2012 40693394 Mammogram Completed 03/09/2011 46455610 Mammogram Completed 03/02/2010 37043053 Mammogram Completed 03/02/2010 718321791 Bone Mineral Density Test Completed 06/24/2009 22414054 Colonoscopy Completed 03/28/2000 91135345 Colonoscopy Completed Medical Devices Description No Information Available Encounters Type Date Location Provider Dx Diagnosis Office Visit 04/20/2019 [facility] Internal Michelle Varn, Z01.818 Encounter for other 1:40p Medicine - Ccmob N.P. preprocedural examination M17.11 Unilateral primary osteoarthritis, right knee I10 Essential (primary) hypertension M05.79 Rheu arthritis w rheu factor mult site w/o org/sys involv E03.9 Hypothyroidism, unspecified Office Visit 03/16/2019 11:40a [facility] Internal Michelle Xiemalia, M46.1 Sacroiliitis, not Medicine - N.P. elsewhere Ccmob classified M20.42 Other hammer toe(s) (acquired), left foot Office Visit 02/06/2019 1:45p Wound Care Sydni Meade, L97.821 Non- prs [facility] AT [facility] [place], SENIOR ACCOUNT MANAGER-BC ulcer oth prt l low leg limited to brkdwn skin S81.802A Unspecified open wound, left lower leg, initial encounter I87.302 Chronic venous hypertension w/o comp of l low extrem Office Visit 02/06/2019 8:00a [facility] Liz Guaman, M25.562 Pain in left at [facility].D. knee M25.561 Pain in right knee M25.462 Effusion, left knee M25.461 Effusion, right knee M17.0 Bilateral primary osteoarthritis of knee Office Visit 01/21/2019 10:20a [facility] Internal Michelle Norris, I10 Essential ( primary) Medicine - Ccmob N.P. hypertension S81.802D Unspecified open wound, left lower leg, subsequent encounter Office 01/12/2019 [facility] Internal Medicine Michelle S81.802D Unspecified open Visit 3:40p - Ccmob Varmalia, N.P. wound, left lower leg, subsequent encounter Office 12/24/2018 [facility] Internal Medicine Evonne N30.00 Acute cystitis Visit 10:30a - Girish Galvan M.D. without hematuria Office 11/27/2018 [facility] Gastroenterology Be Eden K25.9 Gastric ulcer, Visit 8:00a MD Kush unsp as acute or chronic, w/o hemor or perf K58.1 Irritable bowel syndrome with constipation K59.00 Constipation, unspecified Z80.0 Family history of malignant neoplasm of digestive organs R94.5 Abnormal results of liver function studies Assessments Date Code Description Provider 04/27/2019 M25.562 Pain in left knee Liz Guaman M.D. 04/27/2019 M25.462 Effusion, left knee Liz Guaman M.D. 04/27/2019 M17.12 Unilateral primary osteoarthritis, Liz Guaman M.D. left knee 04/20/2019 Z01.818 Encounter for other preprocedural Michelle Varn, N.P. examination 04/20/2019 M17.11 Unilateral primary osteoarthritis, Liz Guaman M.D. right knee 04/20/2019 M17.11 Unilateral primary osteoarthritis, Michelle Varn, N.P. right knee 04/20/2019 M25.561 Pain in right knee Liz Guaman M.D. 04/20/2019 I10 Essential (primary) hypertension Michelle Varn, N.P. 04/20/2019 M05.79 Rheumatoid arthritis with Michelle Varn, N.P. rheumatoid factor of multiple site 04/20/2019 E03.9 Hypothyroidism, unspecified Michelle Varn, N.P. 03/16/2019 M46.1 Sacroiliitis, not elsewhere Michelle Varn, N.P. classified 03/16/2019 M20.42 Other hammer toe(s) (acquired), Michelle Varn, N.P. left foot 02/23/2019 L97.821 Non-pressure chronic ulcer of other Sydni Meade DNP , RN, part of left lower leg limited to SENIOR ACCOUNT MANAGER-BC breakdown of skin 02/23/2019 I87.302 Chronic venous hypertension Sydni Meade DNP, RN, (idiopathic) without complications SENIOR ACCOUNT MANAGER-BC of left lower extremity 02/13/2019 L97.821 Non-pressure chronic ulcer of other Sydni Meade DNP , RN, part of left lower leg limited to SENIOR ACCOUNT MANAGER-BC breakdown of skin 02/13/2019 I87.302 Chronic venous hypertension Sydni Meade DNP, RN, (idiopathic) without complications SENIOR ACCOUNT MANAGER-BC of left lower extremity 02/10/2019 K59.00 Constipation, [...] part of left lower leg limited to SENIOR ACCOUNT MANAGER-BC breakdown of skin 02/06/2019 S81.802A Unspecified open wound, left lower Sydni Meade DNP , RN, leg, initial encounter SENIOR ACCOUNT MANAGER-BC 02/06/2019 I87.302 Chronic venous hypertension Sdyni Meade DNP, RN, (idiopathic) without complications SENIOR ACCOUNT MANAGER-BC of left lower extremity 02/06/2019 M25.562 Pain in left knee Liz Guaman M.D. 02/06/2019 M25.561 Pain in right knee Liz Guaman M.D. 02/06/2019 M25.462 Effusion, left knee Liz Guaman M.D. 02/06/2019 M25.461 Effusion, right knee Liz Guaman M.D. 02/06/2019 M17.0 Bilateral primary osteoarthritis of Liz Guaman M.D. knee 01/21/2019 I10 Essential (primary) hypertension Michelle Norris, N.P. 01/21/2019 M25.562 Pain in left knee Liz Guaman M.D. 01/21/2019 S81.802D Unspecified open wound, left lower Michelle Varn, N.P. leg, subsequent encounter 01/21/2019 M25.561 Pain in right knee Liz Guaman M.D. 01/21/2019 M25.462 Effusion, left knee Liz Guaman M.D. 01/21/2019 M25.461 Effusion, right knee Liz Guaman M.D. 01/21/2019 M17.0 Bilateral primary osteoarthritis of Liz Guaman M.D. knee 01/12/2019 S81.802D Unspecified open wound, left lower Michelle Norris, N.P. leg, subsequent encounter 12/24/2018 N30.00 Acute [...] Guaman M.D. knee Plan of Treatment Future Appointment(s):05/15/2019 10:45 am - JORY Vásquez at [facility] at Cibdvv8605/05/2019 12:30 pm - Vinicius Reese PA-C at [facility] at Bwkusa5505/05/2019 12:30 pm - JORY Vásquez at [facility] at Nwumtg2105/05/2019 12:30 pm - Liz Guaman M.D. at [facility] at Kusvgh4104/27/2019 - Liz Guaman M.D.M25.562 Pain in left kneeFollow up:Follow up: As vebvocP58.462 Effusion, left kneeM17.12 Unilateral primary osteoarthritis, left knee Functional Status Description No Information Available Mental Status Description No Information Available Referrals Refer to Reason for Referral Status Appt Date Wound Clinic Patient with left lower leg wound, referred for Sent 02/06/2019 treatment. [facility] [place] [address] [phone]
[2019-05-05] MEDS ORDERED: fentaNYL* 50 MCG/ML 2 ML VIAL (100 MCG VIAL) ONE (12:36)
[2019-05-05] MEDS ORDERED: celeCOXIB CAP* 200 MG ONE (13:02)
[2019-05-05] MEDS ORDERED: Gabapentin CAP(*) 100 MG ONE (13:02)
[2019-05-05] MEDS ORDERED: ceFAZolin 2 GM PREMIX in ORs 2 GM/50 ML BAG ONE (13:02)
[2019-05-05] MEDS ORDERED: Acetaminophen TAB* 325 MG ONE (13:02)
[2019-05-05] MEDS ORDERED: ROPIVACAINE 5 MG/ML 30 ML BTL (0.5%) ONE ×2 (13:27→14:04)
[2019-05-05] MEDS ORDERED: Midazolam* 1 MG/ML 2 ML VIAL (2 MG) ONE (14:04)
[2019-05-05] MEDS ORDERED: Propofol* 10 MG/ML 20 ML BTL ONE ×2 (14:52→16:19)
[2019-05-05] MEDS ORDERED: Lidocaine 2% PF * 5 ML VIAL ONE (14:52)
[2019-05-05] MEDS ORDERED: Propofol* 500 MG/50 ML BTL ONE (14:52)
[2019-05-05] MEDS ORDERED: Bupivacaine 0.5% SDV PF* 30ML VIAL ONE (14:52)
[2019-05-05] MEDS ORDERED: HYDROmorphone INJ1* 1 MG/ML SYRINGE IV PRN (16:29)
[2019-05-05] MEDS ORDERED: Ondansetron INJ* 2 MG/ML VIAL IV PRN (16:29)
[2019-05-05] MEDS ORDERED: Naloxone* 0.4 MG/ML 1 ML VIAL IV PRN (16:29)
[2019-05-05] MEDS ORDERED: diPHENhydraMINE PO* 25 MG PO PRN (16:57)
[2019-05-05] MEDS ORDERED: Cyclobenzaprine TAB* 10 MG PO PRN (16:57)
[2019-05-05] MEDS ORDERED: Morphine INJ* 2 MG/ML 1 ML SYRINGE (TWO MG - NEW SYRINGE VERSION) IV PRN (16:57)
[2019-05-05] MEDS ORDERED: Polyethylene Glycol 3350* 17 GM PACKET PO PRN (16:57)
[2019-05-05] MEDS ORDERED: Ondansetron ODT TAB* 4 MG PO PRN (16:57)
[2019-05-05] MEDS ORDERED: Magnesium Hydroxide LIQ* 30 ML UDC PO PRN (16:57)
[2019-05-05] MEDS ORDERED: diPHENhydraMINE IV* 50 MG/ML 1 ml VIAL (BENADRYL) IV PRN (16:57)
[2019-05-05] MEDS ORDERED: Dextran 70/Hypromellose Tears Eye Drops 15 ml BTL (for Artificials Tears) BOTH EYES PRN (18:03)
--- NOTE | 2019-05-05 18:56 | OP ---
Operative Report - Blank - Operative Report Date of Operation: 05/05/19 Note: PO BRYSON 1945 Date of Surgery: 05/05/19 Liz Guaman MD Grooving Machine Operator: Garland CORLEY did help throughout the procedure with preparation of the knee, wound retraction, manipulation of the knee, and wound closure. Anesthesiologist: Dr. Campbell Anesthesia Type: Spinal Preoperative Diagnosis: Right severe degenerative osteoarthritis of the knee Postoperative Diagnosis: As above Procedure Performed: Right Total Knee Arthroplasty Tourniquet time: 44 minutes Complications: None Specimen: Bone and cartilage from the right knee joint sent to pathology. Hardware Used: Cemented [employer] total knee hardware was used - For the femur a size 6 right narrow legion posterior stabilized femoral component, for the tibia a size 5 right mauricio II tibial baseplate, for the insert a size 9mm 5-6 posterior stabilized articular polyethylene insert, and for the patella a size 35 3-peg all poly patella. Brief History/Indication: PO BRYSON was known in clinic and had a history of severe right knee pain and swelling. She failed conservative treatment with anti-inflammatories, pain pills, intra-articular injections and physical therapy. She elected to undergo right total knee arthroplasty due to continued pain and decreased quality of life. Radiographs showed severe end stage osteoarthritis of the knee with bone on bone contact. Informed consent was obtained from the patient. She understood the risks of surgery included but were not limited to: bleeding, infection, damage to nearby structures, intraoperative fracture, nerve palsy, failure of the hardware, early loosening, knee stiffness or loss of motion, anesthesia complications, stroke, heart attack , blood clot and . She wished to proceed. Intra-Operative Findings: Intraoperatively the patient was noted to have severe loss of cartilage in all 3 compartments of the knee. The patella had and lateral femoral condyle had extensive wear with complete loss of all cartilage. Description of the Procedure: PO BRYSON was identified in the preanesthesia unit. Her right knee was marked as the correct operative side. Informed consent was signed and placed in the chart. The patient was taken to the operating room and placed under anesthesia without complication. A blakely catheter was placed. A tourniquet was placed on the right thigh. The right lower extremity was prepped and draped in the usual sterile fashion. Preoperative time-out was made to correctly identify the patient, side and site. Appropriate intraoperative antibiotics were given within one hour of incision. Tourniquet was inflated. A midline incision was made and carried sharply down to the extensor mechanism. A new 10 blade was used to make a standard medial parapatellar arthrotomy. The patella was subluxed laterally. Electrocautery was used to dissect soft tissue off the superomedial tibia to the midsagittal plane. The knee was flexed up. The anterior horn of the lateral meniscus and the ACL were sharply incised. A drill was used to enter the distal femur. The intramedullary distal femoral cutting guide was pinned on the distal femur. The oscillating saw was used to make the distal femoral cut. The external rotation guide was pinned on the distal femur and the distal femur was sized to a size 6. The size 6 multi-cutting jig was pinned on the distal femur. The oscillating saw was used to make the appropriate 4 chamfer cuts. Next the PCL was completely released. The extramedullary tibial cutting guide was pinned on the proximal tibia and the oscillating saw was used to make the proximal tibial cut perpendicular to the mechanical axis of the tibia. The bone was carefully removed. The knee was brought out into full extension. The spacer block was placed and had excellent fit with the knee in full extension. The medial and lateral ligaments were well balanced. The flexion and extension gaps were well balanced. The knee was flexed up. Lamina bag cutter was placed both medially and laterally. Any remaining meniscus was removed with electrocautery. Curved osteotome was used to remove any posterior osteophytes. The tibial tray and drop rayne were placed and confirmed a satisfactory tibial cut. The size 6 right narrow femoral trial was impacted onto the distal femur. This trial had excellent fit and stability. The box for the posterior stabilized implant was prepared using a box cut osteotome and a reamer. Next a tibial tray trial and 9 mm insert trial was placed. The knee was taken through a range of motion and had full extension to 130 degrees of flexion. Patellofemoral tracking was satisfactory. The patella was inverted and sized to a size 35. Three peg holes were drilled through the size 35 drill guide. The trial patella was placed and the knee was taken through a range of motion. There was satisfactory patellofemoral tracking. All trials were removed. The tibia was subluxed anteriorly and sized to a size 5. The proximal tibial was prepared with a size 5 keel punch. All bony cut surfaces were irrigated with sterile saline and dried. Final implants were cemented into place starting with the tibia, followed by the femur, and last the patella. A 9 mm insert trial was placed and the knee was brought into full extension. Tourniquet was turned down and the knee was copiously irrigated with sterile saline. Electrocautery was used to obtain meticulous hemostasis. Once the cement had fully cured, the insert trial was removed. Any excess cement was removed from around the hardware and capsule. Final insert chosen was a 9 mm posterior stabilized Mauricio II articular insert size 5-6. Stability of the insert was checked and noted to be stable. The extensor mechanism was closed using number 1 vicryls. The rest of the incision was closed in a layered fashion using 0 and 2-0 vicryls. The skin was closed using 3-0 nylon suture. Sterile xeroform, 4x4s and webril were used to cover the incision. Luico wrap and cold pack were used to cover the dressings. The patients anesthesia was reversed without difficulty. She was taken to the PACU in stable condition. Intended weight-bearing will be as tolerated.
[2019-05-05] MEDS: oxyCODONE/Acetamin 5/325 MG* TAB PO PRN (19:30)
[2019-05-05] MEDS: Magnesium Hydroxide LIQ* 30 ML UDC PO SCH (19:30)
[2019-05-05] MEDS: Docusate CAP* 100 MG PO SCH (19:30)
[2019-05-05] MEDS: Pantoprazole TAB * 40 MG TAB PO SCH (19:30)
--- NOTE | 2019-05-05 20:50 | CONS ---
CONSULTATION REPORT: DATE OF CONSULT: 05/05/19 REASON FOR CONSULTATION: Management of medical comorbidities. REQUESTED BY: JORY Sahu with Orthopedic Surgery. HISTORY OF PRESENT ILLNESS: Ms. Falcon is a 73-year-old female who presented today for an elective right total knee arthroplasty with Dr. Guaman after failing conservative measures in relation to end-stage OA of the right knee. She denies any recent fever, chills, night sweats, unexplained weight loss, visual changes, chest pain, palpitations, shortness of breath, nausea, vomiting , diarrhea, abdominal pain, difficulty with urination or having bowel movements , rashes, lesions, headaches, unusual numbness or tingling, anxiety or depression. She does complain of joint pain to her hands bilaterally, which has been going on. She states this happens on and off. She also complains of pain to the left knee, which she states she is hoping to have replaced in the future. It is noted that she had a potassium of 3.1 during preop labs. She states that she had been taking a potassium supplement for the last week in preparation for surgery. She states that her diagnosis of hypertension is for only mild elevation in blood pressure and that she is controlled well on medication. She does have a history of previous upper GI bleeding after NSAID therapy and states that her last EGD, which was back in January was negative. The patient has no other concerns at this time. PAST MEDICAL HISTORY: 1. Hypertension. 2. Hypothyroidism. 3. OA. 4. Rheumatoid arthritis. 5. Peptic ulcer disease. 6. Varicose veins. 7. Basal cell carcinoma. 8. GERD. 9. Diverticular disease of colon. 10. Abnormal liver function. PAST SURGICAL HISTORY: 1. Several foot surgeries. 2. Subtotal thyroidectomy. 3. Sclerotherapy. 4. Vein stripping. 5. Cholecystectomy. 6. Mohs surgery on her scalp. 7. Bilateral cataract surgery. FAMILY HISTORY: Father with colon cancer and DC. Mother with Alzheimer disease of early onset. Sister with osteoarthritis. SOCIAL HISTORY: The patient lives with her spouse. 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 She has 2 children. She denies any current or previous tobacco use. She states that she has a [place] every day , although she has refrained for the last couple days in preparation for surgery and has not had any issues. Denies any illicit drug use. HOME MEDICATIONS: 1. Acetaminophen 650 mg p.o. 4 times a day p.r.n. 2. Cinnamon 0.5 teaspoon p.o. q.a.m. 3. Calcium plus D3 gradual release 1 tab p.o. q.p.m. 4. Hydroxychloroquine 400 mg p.o. q.a.m. 5. Hydrochlorothiazide 25 mg p.o. q.a.m. 6. Cyclosporine 0.05% ophth 1 drop both eyes b.i.d. 7. Levothyroxine 100 mcg p.o. q.a.m. 8. Levothyroxine 150 mcg p.o. q.Saturday. 9. Omeprazole 20 mg p.o. b.i.d. 10. [place]-3 fatty acids 1200 mg p.o. b.i.d. 11. Theragran minerals tab, 1 tab p.o. q.a.m. 12. Vitamin B complex 1 cap p.o. q.a.m. 13. Turmeric-curcumin complex 500/3 mg 1 cap p.o. q.a.m. 14. Tolterodine tartrate 4 mg p.o. q.a.m. 15. MiraLAX 17 g p.o. daily p.r.n. 16. Glucosamine chondroitin collagen 1 cap p.o. b.i.d. ALLERGIES: No known drug allergies. REVIEW OF SYSTEMS: A 10-point review of systems was completed. See HPI for all pertinent positives and negatives. PHYSICAL EXAMINATION: Constitutional: The patient is lying in bed, appears to be in no acute distress. Last Vital Signs: Temp 97.0, heart rate 57, respiratory rate 13, O2 sat 99% on room air, BP 134/75. HEENT: No scleral icterus noted. Neck: Supple. Cardiovascular: Heart rate regular. S1, S2 present. No murmurs, rubs, or gallops noted. No JVD. Extremities: Trace pitting edema to bilateral lower extremities. Pedal pulses present, 1+ bilaterally. Respiratory: Lung sounds clear throughout bilaterally. Normal effort and rate. GI: Bowel sounds x4. Soft, nontender. Musculoskeletal: Strength and range of motion within normal limits to bilateral upper extremities. The patient unable to move bilateral lower extremities at this point. Skin: Dressing covering incision to right knee, otherwise, it is dry and intact. Neuro: Alert and oriented x3. Cranial nerves II through XII grossly intact. Psych: Responds appropriately. Normal affect. DIAGNOSTIC STUDIES AND LAB DATA: Preop chest x-ray showed no active cardiopulmonary disease. Preop EKG showed sinus rhythm with no significant changes from 2017 EKG. Preoperative laboratory results: WBC 5.6, RBC 3.97, hemoglobin 13.2, hematocrit 39, MCV 97, MCH 33, RDW 13, platelet count 207. INR 0.94, APTT 33.7. Sodium 139, potassium 3.1, chloride 98, carbon dioxide 33, anion gap 8, BUN 14, creatinine 0.72, estimated GFR 79.2, BUN creatinine ratio 19.4, glucose 81. Calcium 9.5. TSH 1.18, free T4 1.95. Preoperative urinalysis showed specific gravity of 1.009, leukocyte esterase 3+, wbc's 3+, renal epithelial cells were present, negative for rbc's, bacteria, and nitrates. ASSESSMENT AND PLAN: Ms. Falcon is a very pleasant 73-year-old female who today had a right total knee replacement performed by Dr. Guaman. She has a past medical history significant for hypertension, hypothyroidism, rheumatoid arthritis, osteoarthritis, peptic ulcer disease after NSAID use, and GERD. Hospital Medicine will continue to follow and co-manage her medical comorbidities. 1. Status post right total knee arthroplasty. Pain management, bowel regimen, and DVT prophylaxis per Orthopedics. 2. Hypertension. We will continue her usual medications and we will continue to trend BPs during this admission. 3. Hypothyroidism. Chronic condition. We will continue usual levothyroxine regimen. 4. Hypokalemia. Preoperative potassium level was 3.1. She has been taking a potassium supplement prior to surgery. She has a BMP due in the morning when this can be reassessed. 5. FEN. Continue with usual diet, fluids per Orthopedics. 6. Code status. Full code. 7. DVT prophylaxis. Per Orthopedics. The patient does have SCDs ordered. She also will be started on Eliquis. Should refrain from NSAID use given her history of what sounds like upper GI bleeding after use of NSAIDs. Disposition. The patient will be admitted to short-stay surgical unit. Condition. Stable. Thank you for allowing us to participate in the care of this patient. We will follow during this admission. This plan has been discussed with my attending physician, Dr. De La Fuente, who agrees with this plan. DELLA ESPOSITO NP [id number]/[facility] #: [id number]
[2019-05-05] MEDS: traMADol TAB* 50 MG PO PRN (20:55)
[2019-05-05] MEDS: Acetaminophen TAB* 325 MG PO SCH (22:06)
[2019-05-05] MEDS: ceFAZolin 1 GM ADVAN(*) 1 GM in NS 0.9% 50 ML* 50 ML IVPB SCH (23:15)
[2019-05-06] MEDS: oxyCODONE TAB* 5 MG TAB PO PRN (00:36)
[2019-05-06] MEDS: Ondansetron INJ* 2 MG/ML VIAL IV PRN ×2 (00:44→10:19)
[2019-05-06] MEDS: Lactated Ringers 1000 ML Bag* 1,000 ML IV SCH ×2 (04:32→15:16)
[2019-05-06] MEDS: oxyCODONE/Acetamin 5/325 MG* TAB PO PRN ×2 (04:34→19:56)
[2019-05-06] MEDS: Levothyroxine TAB* 100 MCG TAB PO SCH (05:18)
[2019-05-06] MEDS: Acetaminophen TAB* 325 MG PO SCH ×3 (05:21→21:35)
[2019-05-06 06:32] LABS: Hematocrit 36 % (35-47); Hemoglobin 12.3 g/dL (12.0-16.0); Mean Platelet Volume 10.2 fL (7.4-10.4); Platelet Count 168 10^3/uL (150-450)
[2019-05-06 06:48] LABS: BUN/Creatinine Ratio 22.4 (8-20); Calcium 8.5 mg/dL (8.6-10.3); EGFR Non-African American 101.6 (>60); Potassium 3.7 mmol/L (3.5-5.0)
[2019-05-06] MEDS: ceFAZolin 1 GM ADVAN(*) 1 GM in NS 0.9% 50 ML* 50 ML IVPB SCH ×2 (06:52→15:17)
[2019-05-06] MEDS: Vitamin THERAPEUTIC TAB PO SCH (07:56)
[2019-05-06] MEDS: Apixaban* 2.5 MG TAB PO SCH ×2 (07:57→21:32)
[2019-05-06] MEDS: Oxybutynin XL TAB* 5 MG PO SCH (07:57)
[2019-05-06] MEDS: Pantoprazole TAB * 40 MG TAB PO SCH ×2 (07:57→21:22)
[2019-05-06] MEDS: traMADol TAB* 50 MG PO PRN ×3 (07:57→21:31)
[2019-05-06] MEDS: Hydroxychloroquine TAB* 200 MG PO SCH (07:57)
[2019-05-06] MEDS: Magnesium Hydroxide LIQ* 30 ML UDC PO SCH ×2 (07:57→21:32)
[2019-05-06] MEDS: Docusate CAP* 100 MG PO SCH ×2 (07:57→21:32)
[2019-05-06] MEDS ORDERED: Hydrochlorothiazide TAB* 25 MG PO SCH (09:00)
[2019-05-06] MEDS ORDERED: Scopolamine 1.5 mg* PATCH TRANSDERM SCH (11:00)
--- NOTE | 2019-05-06 11:53 | PN ---
Progress Note - Progress Note Date of Service: 05/06/19 SOAP: Subjective: Pt is doing well. Reports soreness after getting out of bed that improved after taking percocet. Denies N/T, F/C, CP/SOB or calf pain Objective: PE- 73 y/o WDWN F NAD, A&Ox3 RLE- dressing c/d/i, calf soft NT, +DF/PF ankle, +2 Dp pulse, SILT distally Vital Signs Temp Pulse Resp BP Pulse Ox 97.1 F 66 16 134/61 100 05/06/19 11:26 05/06/19 11:26 05/06/19 11:26 05/06/19 11:26 05/06/19 11:26 Laboratory Results - last 24 hr 05/05/19 05/06/19 05/06/19 13:29 05:36 05:36 Hgb 12.3 Hct 36 Plt Count 168 MPV 10.2 Sodium 134 L Potassium 3.7 Chloride 98 L Carbon Dioxide 33 H Anion Gap 3 BUN 13 Creatinine 0.58 Est GFR ( Amer) 123.0 Est GFR (Non-Af Amer) 101.6 BUN/Creatinine Ratio 22.4 H Glucose 110 H Calcium 8.5 L Blood Type A Positive Antibody Screen Negative Assessment: POD 1 S/P Right total knee arthroplasty Plan: WBAT- PT/OT Eliquis for DVT prophylaxis Cont percocet and flexaril for pain Plan [facility] vs tomorrow. Will reeval after physical therapy this pm.
[2019-05-06] MEDS ORDERED: PTO: Artificial Tears* 15 ML BTL BOTH EYES PRN (12:00)
[2019-05-06] MEDS: CMCS: Cyclosporine 0.05% OPHTH (NF) 0.4 ML VIAL BOTH EYES SCH ×2 (13:22→21:33)
[2019-05-06] MEDS ORDERED: Metoclopramide IV* 5 MG/ML 2 ML VIAL IV PRN (14:23)
--- NOTE | 2019-05-06 15:19 | CONSULT ---
Subjective Date of Service: 05/06/19 Interval History: Consulting on post surgical total right knee replacement patient of Dr. Guaman. Pt has hx of HTN, Hypothyroid, PVD, Rheumatoid Arthritis, and Osteoarthritis. Pt is one day post op sitting partially reclined in recliner chair with legs elevated. Pt sleeping upon entering room but awakens to gentle verbal stimuli. Pt appears uncomfortable and complains of severe nausea. Pt reports mild pain at surgical site. Family History: Unchanged from Admission Social History: Unchanged from Admission Past Medical History: Unchanged from Admission Review of Systems - Measurements Intake and Output: Intake and Output Last 24 Hours 05/04/19 05/05/19 05/06/19 05/07/19 06:59 06:59 06:59 06:59 Intake Total 2760 1443 Output Total 950 700 Balance 1810 743 Weight 166 lb 4 oz Intake: IV Fluids 1979 973 LR 1980 973 IVPB 50 LR 50 Oral 780 420 Output: Urine 550 Gore 950 Emesis 150 - Review of Systems Dermatology: Positive: Normal HEENT: Positive: Normal Eyes: Positive: Normal Thyroid: Positive: Normal Pulmonary: Positive: Normal Cardiology: Positive: Normal Gastroenterology: Positive: Nausea, Vomiting - vomitted after standing Genital - Urinary: Positive: Normal Musculoskeletal: Positive: Joint Pain - Right knee pain associated with total knee replacement Endocrinology: Positive: Normal Neurology: Positive: Normal Objective Active Medications: Acetaminophen (Tylenol Tab*) 975 mg PO Q8HR [facility] Last Admin: 05/06/19 12:55 Dose: 975 mg Apixaban (Eliquis*) 2.5 mg PO BID [facility] Last Admin: 05/06/19 07:57 Dose: 2.5 mg Bisacodyl (Dulcolax Supp*) 10 mg DE DAILY PRN PRN Reason: CONSTIPATION Cyclobenzaprine HCl (Flexeril Tab*) 10 mg PO Q6H PRN PRN Reason: SPASMS Last Admin: 05/06/19 09:35 Dose: 10 mg Cyclosporine (Restasis 0.05% Ophth) 1 drop BOTH EYES BID [facility]; Protocol Last Admin: 05/06/19 13:22 Dose: Not Given Diphenhydramine HCl (Benadryl Iv*) 25 mg IV Q6H PRN PRN Reason: PRURITIS Diphenhydramine HCl (Benadryl Po*) 25 mg PO Q6H PRN PRN Reason: PRURITIS Docusate Sodium (Colace Cap*) 100 mg PO BID [facility] Last Admin: 05/06/19 07:57 Dose: 100 mg Hydroxychloroquine Sulfate (Plaquenil Tab*) 400 mg PO QAM [facility] Last Admin: 05/06/19 07:57 Dose: 400 mg Lactated Ringer's (Lactated Ringers 1000 Ml Bag*) 1,000 mls @ 100 mls/hr IV PER RATE [facility] Last Admin: 05/06/19 15:16 Dose: 100 mls/hr Lactulose (Lactulose*) 30 ml PO BID PRN PRN Reason: CONSTIPATION Levothyroxine Sodium (Synthroid Tab*) 150 mcg PO Larios@0600 [facility] Levothyroxine Sodium (Synthroid Tab*) 100 mcg PO MoTuWeThFrSa@0600 [facility] Last Admin: 05/06/19 05:18 Dose: 100 mcg Magnesium Hydroxide (Milk Of Magnesia Liq*) 30 ml PO BID [facility] Last Admin: 05/06/19 07:57 Dose: 30 ml Magnesium Hydroxide (Milk Of Magnesia Liq*) 30 ml PO Q6H PRN PRN Reason: CONSTIPATION Metoclopramide HCl (Reglan Iv*) 5 mg IV Q6H PRN PRN Reason: NAUSEA/VOMITING Last Admin: 05/06/19 14:39 Dose: 5 mg Morphine Sulfate (Morphine Inj (Syringe))*) 2 mg IV Q4H PRN PRN Reason: Pain - Unrelieved Multivitamins (Theragran Tab*) 1 tab PO DAILY [facility] Last Admin: 05/06/19 07:56 Dose: 1 tab Ondansetron HCl (Zofran Inj*) 4 mg IV Q6H PRN PRN Reason: NAUSEA Last Admin: 05/06/19 10:19 Dose: 4 mg Ondansetron HCl (Zofran Odt Tab*) 4 mg PO Q6H PRN PRN Reason: NAUSEA Oxybutynin Chloride (Ditropan Xl Tab*) 5 mg PO QAM [facility]; Protocol Last Admin: 05/06/19 07:57 Dose: 5 mg Oxycodone HCl (Roxycodone Tab*) 10 mg PO Q4H PRN PRN Reason: Pain - Breakthrough Last Admin: 05/06/19 00:36 Dose: 10 mg Oxycodone/Acetaminophen (Percocet 5/325 Tab*) 2 tab PO Q4H PRN PRN Reason: PAIN - SEVERE Last Admin: 05/06/19 04:34 Dose: 2 tab Pantoprazole Sodium (Protonix Tab*) 40 mg PO BID [facility] Last Admin: 05/06/19 07:57 Dose: 40 mg Pharmacy Profile Note (Scopolamine Patch Remove*) 1 note PATCH OFF Q72H [facility] Polyethylene Glycol/Electrolytes (Miralax (17 Gm Dose Michael)) 17 gm PO DAILY PRN PRN Reason: Constipation Polyvinyl Alcohol (Polyvinyl Alcohol 1.4% Opth*) 2 drop BOTH EYES Q2H PRN PRN Reason: DRY EYE Scopolamine (Transderm-Scop 1.5 Mg Patch*) 1 patch TRANSDERM Q72H [facility] Last Admin: 05/06/19 11:10 Dose: 1 patch Tramadol HCl (Ultram*) 50 mg PO Q6H PRN PRN Reason: PAIN - MODERATE Last Admin: 05/06/19 15:17 Dose: 50 mg Vital Signs - 8 hr 05/06/19 05/06/19 05/06/19 07:27 07:57 08:00 Temperature 98 F Pulse Rate 77 Respiratory 16 16 16 Rate Blood Pressure 110/62 (mmHg) O2 Sat by Pulse 97 Oximetry 05/06/19 05/06/19 05/06/19 09:35 11:17 11:26 Temperature 97.1 F Pulse Rate 66 Respiratory 18 18 16 Rate Blood Pressure 134/61 (mmHg) O2 Sat by Pulse 100 Oximetry 05/06/19 05/06/19 14:45 15:17 Temperature 99.1 F Pulse Rate 72 Respiratory 24 16 Rate Blood Pressure 148/72 (mmHg) O2 Sat by Pulse 100 Oximetry Oxygen Devices in Use Now: None Appearance: Alert, appears uncomfortable Eyes: No Scleral Icterus, PERRLA Ears/Nose/Mouth/Throat: NL Teeth, Lips, Gums, Mucous Membranes Moist Neck: NL Appearance and Movements; NL JVP, Trachea Midline, No Thyroid Enlargement, Masses Respiratory: Symmetrical Chest Expansion and Respiratory Effort, Clear to Auscultation Cardiovascular: NL Sounds; No Murmurs; No JVD, No Edema - Non-surgical extremity without edema. Abdominal: NL Sounds; No Tenderness; No Distention, No Hepatosplenomegaly Skin: No Rash or Ulcers Neurological: Alert and Oriented x 3, NL Sensation, NL Muscle Strength and Tone Result Diagrams: 05/06/19 05:36 05/06/19 05:36 Assessment/Plan - Billing Plan By Medical Problem: 1. 2. VTE PPX: Diet: Code Status: Admission Status and Rationale:
--- NOTE | 2019-05-06 16:12 | PN ---
Subjective Date of Service: 05/06/19 Interval History: Consulting on post surgical total right knee replacement patient of Dr. Guaman. Pt is one day post op sitting partially reclined in recliner chair with legs elevated. Pt sleeping upon entering room but awakens to gentle verbal stimuli. Pt appears uncomfortable and complains of severe nausea. Pt reports mild pain at surgical site. Family History: Unchanged from Admission Social History: Unchanged from Admission Past Medical History: Unchanged from Admission Objective Active Medications: Acetaminophen (Tylenol Tab*) 975 mg PO Q8HR [facility] Last Admin: 05/06/19 12:55 Dose: 975 mg Apixaban (Eliquis*) 2.5 mg PO BID [facility] Last Admin: 05/06/19 07:57 Dose: 2.5 mg Bisacodyl (Dulcolax Supp*) [address] DAILY PRN PRN Reason: CONSTIPATION Cyclobenzaprine HCl (Flexeril Tab*) 10 mg PO Q6H PRN PRN Reason: SPASMS Last Admin: 05/06/19 09:35 Dose: 10 mg Cyclosporine (Restasis 0.05% Oph) 1 drop BOTH EYES BID [facility]; Protocol Last Admin: 05/06/19 13:22 Dose: Not Given Diphenhydramine HCl (Benadryl Iv*) 25 mg IV Q6H PRN PRN Reason: PRURITIS Diphenhydramine HCl (Benadryl Po*) 25 mg PO Q6H PRN PRN Reason: PRURITIS Docusate Sodium (Colace Cap*) 100 mg PO BID [facility] Last Admin: 05/06/19 07:57 Dose: 100 mg Hydroxychloroquine Sulfate (Plaquenil Tab*) 400 mg PO QAM [facility] Last Admin: 05/06/19 07:57 Dose: 400 mg Lactated Ringer's (Lactated Ringers 1000 Ml Bag*) 1,000 mls @ 100 mls/hr IV PER RATE [facility] Last Admin: 05/06/19 15:16 Dose: 100 mls/hr Lactulose (Lactulose*) 30 ml PO BID PRN PRN Reason: CONSTIPATION Levothyroxine Sodium (Synthroid Tab*) 150 mcg PO Larios@0600 [facility] Levothyroxine Sodium (Synthroid Tab*) 100 mcg PO MoTuWeThFrSa@0600 [facility] Last Admin: 02/05/20 05:18 Dose: 100 mcg Magnesium Hydroxide (Milk Of Magnesia Liq*) 30 ml PO BID [facility] Last Admin: 05/06/19 07:57 Dose: 30 ml Magnesium Hydroxide (Milk Of Magnesia Liq*) 30 ml PO Q6H PRN PRN Reason: CONSTIPATION Metoclopramide HCl (Reglan Iv*) 5 mg IV Q6H PRN PRN Reason: NAUSEA/VOMITING Last Admin: 05/06/19 14:39 Dose: 5 mg Morphine Sulfate (Morphine Inj (Syringe))*) 2 mg IV Q4H PRN PRN Reason: Pain - Unrelieved Multivitamins (Theragran Tab*) 1 tab PO DAILY [facility] Last Admin: 05/06/19 07:56 Dose: 1 tab Ondansetron HCl (Zofran Inj*) 4 mg IV Q6H PRN PRN Reason: NAUSEA Last Admin: 05/06/19 10:19 Dose: 4 mg Ondansetron HCl (Zofran Odt Tab*) 4 mg PO Q6H PRN PRN Reason: NAUSEA Oxybutynin Chloride (Ditropan Xl Tab*) 5 mg PO QAM [facility]; Protocol Last Admin: 05/06/19 07:57 Dose: 5 mg Oxycodone HCl (Roxycodone Tab*) 10 mg PO Q4H PRN PRN Reason: Pain - Breakthrough Last Admin: 05/06/19 00:36 Dose: 10 mg Oxycodone/Acetaminophen (Percocet 5/325 Tab*) 2 tab PO Q4H PRN PRN Reason: PAIN - SEVERE Last Admin: 05/06/19 04:34 Dose: 2 tab Pantoprazole Sodium (Protonix Tab*) 40 mg PO BID [facility] Last Admin: 05/06/19 07:57 Dose: 40 mg Pharmacy Profile Note (Scopolamine Patch Remove*) 1 note PATCH OFF Q72H [facility] Polyethylene Glycol/Electrolytes (Miralax (17 Gm Dose Michael)) 17 gm PO DAILY PRN PRN Reason: Constipation Polyvinyl Alcohol (Polyvinyl Alcohol 1.4% Opth*) 2 drop BOTH EYES Q2H PRN PRN Reason: DRY EYE Scopolamine (Transderm-Scop 1.5 Mg Patch*) 1 patch TRANSDERM Q72H [facility] Last Admin: 05/06/19 11:10 Dose: 1 patch Tramadol HCl (Ultram*) 50 mg PO Q6H PRN PRN Reason: PAIN - MODERATE Last Admin: 05/06/19 15:17 Dose: 50 mg Vital Signs - 8 hr 05/06/19 05/06/19 05/06/19 09:35 11:17 11:26 Temperature 97.1 F Pulse Rate 66 Respiratory 18 18 16 Rate Blood Pressure 134/61 (mmHg) O2 Sat by Pulse 100 Oximetry 05/06/19 05/06/19 14:45 15:17 Temperature 99.1 F Pulse Rate 72 Respiratory 24 16 Rate Blood Pressure 148/72 (mmHg) O2 Sat by Pulse 100 Oximetry Oxygen Devices in Use Now: None Appearance: Alert, appears uncomfortable Eyes: No Scleral Icterus, PERRLA Ears/Nose/Mouth/Throat: NL Teeth, Lips, Gums, Clear Oropharnyx, Mucous Membranes Moist Neck: NL Appearance and Movements; NL JVP, Trachea Midline, No Thyroid Enlargement, Masses Respiratory: Symmetrical Chest Expansion and Respiratory Effort, Clear to Auscultation Cardiovascular: NL Sounds; No Murmurs; No JVD, No Edema Abdominal: NL Sounds; No Tenderness; No Distention, No Hepatosplenomegaly Extremities: - - Absent of edema bilateral upper extrems. Absent of edema in nonsurgical lower extremity Skin: No Rash or Ulcers, No Nodules or Sclerosis, - - Dressing DI to right knee Neurological: Alert and Oriented x 3, NL Sensation, NL Muscle Strength and Tone Result Diagrams: 05/06/19 05:36 05/06/19 05:36 Assess/Plan/Problems-Billing - Patient Problems (1) Status post right knee replacement Comment: Management per orthopedics PT/OT per orthopedics pain managment per orthopedics (2) Hypertension Comment: Stable resume HCTZ at Discharge (3) Hypothyroidism Comment: Continue Levothyroxine (4) DVT prophylaxis Comment: Apixaban SCD's (5) Full code status Status and Disposition: Medicine consult thank you for allowing us to see your patient. Will follow as needed basis.
[2019-05-07] MEDS: Lactated Ringers 1000 ML Bag* 1,000 ML IV SCH (01:23)
[2019-05-07] MEDS: oxyCODONE/Acetamin 5/325 MG* TAB PO PRN ×2 (04:37→11:30)
[2019-05-07] MEDS: Levothyroxine TAB* 100 MCG TAB PO SCH (05:36)
[2019-05-07] MEDS: Acetaminophen TAB* 325 MG PO SCH ×2 (05:38→14:43)
[2019-05-07 06:07] LABS: Hematocrit 35 % (35-47); Hemoglobin 12.3 g/dL (12.0-16.0); Mean Platelet Volume 9.4 fL (7.4-10.4); Platelet Count 172 10^3/uL (150-450)
[2019-05-07] MEDS: Pantoprazole TAB * 40 MG TAB PO SCH (08:21)
[2019-05-07] MEDS: Docusate CAP* 100 MG PO SCH (08:21)
[2019-05-07] MEDS: Hydroxychloroquine TAB* 200 MG PO SCH (08:21)
[2019-05-07] MEDS: Oxybutynin XL TAB* 5 MG PO SCH (08:21)
[2019-05-07] MEDS: Vitamin THERAPEUTIC TAB PO SCH (08:21)
[2019-05-07] MEDS: Magnesium Hydroxide LIQ* 30 ML UDC PO SCH (08:21)
[2019-05-07] MEDS: Apixaban* 2.5 MG TAB PO SCH (08:21)
[2019-05-07] MEDS: oxyCODONE TAB* 5 MG TAB PO PRN (08:22)
--- NOTE | 2019-05-07 09:14 | PN ---
Progress Note - Progress Note Date of Service: 05/07/19 SOAP: Subjective: resting comfortably in bed; no complaints, pain well controlled Objective: Vital Signs Temp Pulse Resp BP Pulse Ox 97.8 F 75 18 127/62 97 05/07/19 07:41 05/07/19 07:41 05/07/19 08:22 05/07/19 07:41 05/07/19 07:41 Laboratory Last Values Hgb 12.3 g/dL (12.0-16.0) 05/07/19 05:53 Hct 35 % (35-47) 05/07/19 05:53 Plt Count 172 10^3/uL (150-450) 05/07/19 05:53 MPV 9.4 fL (7.4-10.4) 05/07/19 05:53 Sodium 134 mmol/L (135-145) L 05/06/19 05:36 Potassium 3.7 mmol/L (3.5-5.0) 05/06/19 05:36 Chloride 98 mmol/L (101-111) L 05/06/19 05:36 Carbon Dioxide 33 mmol/L (22-32) H 05/06/19 05:36 Anion Gap 3 mmol/L (2-11) 05/06/19 05:36 BUN 13 mg/dL (6-24) 05/06/19 05:36 Creatinine 0.58 mg/dL (0.51-0.95) 05/06/19 05:36 Est GFR ( Amer) 123.0 (>60) 05/06/19 05:36 Est GFR (Non-Af Amer) 101.6 (>60) 05/06/19 05:36 BUN/Creatinine Ratio 22.4 (8-20) H 05/06/19 05:36 Glucose 110 mg/dL (70-100) H 05/06/19 05:36 Calcium 8.5 mg/dL (8.6-10.3) L 05/06/19 05:36 Blood Type A Positive 05/05/19 13:29 Antibody Screen Negative 05/05/19 13:29 incision: c/d/i; dressing changed PE: able to DF/PF, 2+ DP pulse and intact sensation Assessment: s/p right TKA; POD#2 Plan: 1) PT/OT- WBAT 2) Home today with home PT; F/U with [facility] in 2 weeks 3) Eliquis BID x 4 weeks for DVT prophylaxis
--- NOTE | 2019-05-07 10:31 | DS ---
DISCHARGE SUMMARY: DATE OF ADMISSION: 05/05/19 DATE OF DISCHARGE: 05/07/19 SURGEON: Dr. Liz Guaman.* (DICTATED BY JORY FLANNERY) PRINCIPAL DIAGNOSIS: End-stage osteoarthritis, right knee. DISCHARGE DIAGNOSES: End-stage osteoarthritis, right knee. DISCHARGE DISPOSITION: Discharged home in stable condition. HISTORY OF PRESENT ILLNESS: Ms. Falcon is a 73-year-old female with end-stage osteoarthritis of the right knee. She has failed conservative treatment and elected to proceed with right total knee arthroplasty. HOSPITAL COURSE: Ms. Falcon was admitted electively to the hospital on and underwent a right total knee arthroplasty. She tolerated the procedure well. Postoperatively, she was placed on Eliquis twice a day for DVT prophylaxis. She was weightbearing as tolerated with physical therapy and ambulated well with a walker. At the time of discharge, she was afebrile and her vital signs were stable. Postop day 1, her H and H was 12 and 36; on postop day 2 was 12 and 35. DISCHARGE MEDICATIONS: 1. Eliquis 2.5 mg 1 tab twice a day for 4 weeks. 2. Colace 100 mg tab 2 to 3 daily as needed for constipation. 3. Percocet 5/325 one to two tabs every 4 to 6 hours as needed for pain. 4. Flexeril 10 mg tabs every 8 hours as needed for muscle spasms. 5. Plaquenil 400 mg daily. 6. Levothyroxine 150 mcg daily. 7. Multivitamin. 8. Ditropan 5 mg daily. 9. Pantoprazole sodium 40 mg twice a day. PHYSICAL EXAM UPON DISCHARGE: She was afebrile. Her vital signs were stable. Her wound was clean and dry. She was ambulating well with a walker. She was able to dorsiflex and plantarflex, has 2+ dorsalis pedis pulse and intact sensation. DISCHARGE INSTRUCTIONS: She is discharged home. She was given Percocet for pain, Flexeril for muscle spasms, Colace for constipation, and Eliquis 2.5 mg twice a day for 4 weeks for DVT prophylaxis. She is weightbearing as tolerated. She will be sent home with home physical therapy and VNS services and Dr. Guaman is to see her back in 2 weeks. JORY FLANNERY [id number]/[facility] #: [id number] [facility]PITALJasvir
[2019-05-07] MEDS: CMCS: Cyclosporine 0.05% OPHTH (NF) 0.4 ML VIAL BOTH EYES SCH (10:42)
[2019-05-07 11:16] VITALS: BP 115/57
[2019-05-09] MEDS ORDERED: Scopolamine PATCH Remove* 1 NOTE MISC PATCH OFF SCH (10:59)
[2019-05-10] MEDS ORDERED: Levothyroxine TAB* 150 MCG TAB PO SCH (06:00)
== END 2019-05-07 14:25 | disposition home health service (06) | DRG 470 ==
LOC: AA 12:03 → SSU 16:58
PROVIDERS: ADMIT Orthopaedic Surgery Adult Reconstructive Orthopaedic Surgery; ATTEND Orthopaedic Surgery Adult Reconstructive Orthopaedic Surgery
PROC: 0SRC0J9 Replacement of Right Knee Joint with Synthetic Substitute, Cemented, Open Approach (ICD-10-PCS; principal; 2019-05-05 15:00)
DX: M17.0 Bilateral primary osteoarthritis of knee (principal); E89.0 Postprocedural hypothyroidism; J30.2 Other seasonal allergic rhinitis; M25.461 Effusion, right knee; E87.6 Hypokalemia; M25.761 Osteophyte, right knee; I10 Essential (primary) hypertension; R11.0 Nausea; K21.9 Gastro-esophageal reflux disease without esophagitis; M05.79 Rheumatoid arthritis with rheumatoid factor of multiple sites without organ or systems involvement; K57.30 Diverticulosis of large intestine without perforation or abscess without bleeding; M21.061 Valgus deformity, not elsewhere classified, right knee; Z79.890 Hormone replacement therapy; Z90.49 Acquired absence of other specified parts of digestive tract; Z87.11 Personal history of peptic ulcer disease; Z85.828 Personal history of other malignant neoplasm of skin
CPT/HCPCS: 36415; 80048; 85014; 85018; 85049; 86850; 86900; 86901; 88305; 88311; A9270-GY; J0690; J2250; J2405; J2704; J2765; J2795; J3010; J3490

== ENCOUNTER 2021-03-07 11:00 | Observation (INO) ==
[2021-04-11] MEDS ORDERED: Buffered Lidocaine 1% SYRIN 1 ml INTRADERM ONE (06:00)
[2021-04-11] MEDS ORDERED: Lactated Ringers 1000 ml BAG 1,000 ML IV SCH ×3 (06:00→16:00)
[2021-04-11] MEDS ORDERED: ceFAZolin 2 GM in NS PREMIX 2 GM/100 ML BAG IVPB ONE (09:02)
[2021-04-11] MEDS ORDERED: Bupivacaine 0.5% SDV PF 30ML VIAL ONE (10:46)
[2021-04-11] MEDS ORDERED: Midazolam 2 mg/2 ml VIAL 1 mg/ml 2 ml VIAL (2 mg) ONE (10:46)
[2021-04-11] MEDS ORDERED: Dexamethasone IV 4 MG/ML VIAL 1 ml VIAL ONE (10:46)
[2021-04-11] MEDS ORDERED: Lidocaine 1% MPF 5 ML VIAL ONE (10:52)
[2021-04-11] MEDS ORDERED: Ropivacaine 5 MG/ML 20 ML VIAL 0.5% (100 MG) ONE (11:33)
[2021-04-11] MEDS ORDERED: Morphine 10 MG/ML VIAL (1 ml) ONE (11:38)
[2021-04-11] MEDS ORDERED: fentaNYL 100 mcg/2 ml 50 MCG/ML VIAL ONE (11:38)
[2021-04-11] MEDS ORDERED: Morphine PF AMP (0.5MG/ML) 5 MG/10 ML AMP ONE (11:38)
[2021-04-11] MEDS ORDERED: Propofol 10 MG/ML 20 ML BTL ONE ×2 (12:16→13:18)
[2021-04-11] MEDS ORDERED: diPHENhydraMINE IV 50 MG/ML 1 ml VIAL (BENADRYL) IV PRN ×4 (12:31→15:43)
[2021-04-11] MEDS ORDERED: Ondansetron ODT 4 mg TAB 4 MG TAB PO PRN ×4 (12:31→15:43)
[2021-04-11] MEDS ORDERED: Naloxone 0.4 mg VIAL 0.4 mg/ml 1 ml VIAL IV PRN ×2 (12:31→15:45)
[2021-04-11] MEDS ORDERED: DiMENhydriNATE IV 50 mg/ml 1 ml VIAL IV PUSH PRN ×2 (12:31→15:43)
[2021-04-11] MEDS ORDERED: fentaNYL 100 mcg/2 ml 50 MCG/ML VIAL IV PRN ×2 (12:31→15:43)
[2021-04-11] MEDS ORDERED: diPHENhydraMINE 25 mg TAB PO PRN ×2 (12:52→15:43)
[2021-04-11] MEDS ORDERED: Morphine 2 MG/ML SYRINGE IV PRN ×2 (12:52→15:43)
[2021-04-11] MEDS ORDERED: Magnesium Hydroxide LIQ 30 ML UDC PO PRN ×2 (12:52→15:43)
[2021-04-11] MEDS ORDERED: Lactulose 30 ml UDC PO PRN ×2 (12:52→15:43)
[2021-04-11] MEDS ORDERED: Ondansetron 4 mg VIAL 2 MG/ML 2 ml VIAL IV PRN ×2 (12:52→15:43)
[2021-04-11] MEDS ORDERED: ceFAZolin 1 GM ADVAN 1 GM in NS 0.9% 50 ML 50 ML IVPB SCH (13:00)
[2021-04-11] MEDS ORDERED: Ondansetron 4 mg VIAL 2 MG/ML 2 ml VIAL ONE (13:53)
[2021-04-11] MEDS: Lactated Ringers 1000 ml BAG 1,000 ML IV SCH (15:50)
[2021-04-11] MEDS ORDERED: Omeprazole 20 mg CAP (NF) PO SCH (21:00)
[2021-04-11] MEDS ORDERED: Magnesium Hydroxide LIQ 30 ML UDC PO SCH (21:00)
[2021-04-11] MEDS: ceFAZolin 1 GM ADVAN 1 GM in NS 0.9% 50 ML 50 ML IVPB SCH (21:11)
[2021-04-11] MEDS: Magnesium Hydroxide LIQ 30 ML UDC PO SCH (21:13)
[2021-04-12] MEDS: Lactated Ringers 1000 ml BAG 1,000 ML IV SCH (01:53)
[2021-04-12] MEDS: ceFAZolin 1 GM ADVAN 1 GM in NS 0.9% 50 ML 50 ML IVPB SCH ×2 (04:17→12:17)
[2021-04-12 08:39] LABS: ABS Lymphocytes 0.9 10^3/ul (1.0-4.8); ABS Monocytes 0.6 10^3/ul (0-0.8); ABS Neutrophils 7.2 10^3/ul (1.5-7.7); Eosinophil % 0.2 %; Hematocrit 35 % (35-47); Hemoglobin 12.3 g/dL (12.0-16.0); Lymphocyte % 9.9 %; Mean Corpuscular HGB Conc 35 g/dL (31-36); Mean Corpuscular Hemoglobin 33 pg (27-31); Mean Corpuscular Volume 95 fL (80-97); Platelet Count 205 10^3/uL (150-450); Red Blood Count 3.74 10^6 /uL (3.70-4.87); Red Cell Distribution Width 13 % (10-15); White Blood Count 8.7 10^3/uL (3.5-10.8)
[2021-04-12 08:49] LABS: Calcium 8.7 mg/dL (8.6-10.3); Potassium 4.1 mmol/L (3.5-5.0); eGFR CKD-EPI 90.5 (>60)
[2021-04-12] MEDS: Magnesium Hydroxide LIQ 30 ML UDC PO SCH (08:52)
[2021-04-12] MEDS ORDERED: Vitamin THERAPEUTIC TAB PO SCH ×2 (09:00)
[2021-04-12 11:22] VITALS: BP 106/62
== END 2021-04-12 14:30 | disposition home or self-care (01) ==
LOC: AA 04-11 09:06 → INTOOBSV 04-11 09:06 → UNDODISIN 04-11 15:15 → SSU 04-11 15:45
PROVIDERS: ADMIT Orthopaedic Surgery Adult Reconstructive Orthopaedic Surgery; ATTEND Orthopaedic Surgery Adult Reconstructive Orthopaedic Surgery